=== PATIENT | male | born 1965 | race Caucasian/White ===

== ENCOUNTER 2023-06-19 23:41 | Emergency (ER) | payer OTHER, SELFPAY ==
--- NOTE | 2023-06-19 23:51 | ED.GENADUL1 ---
HPI - General Adult General Chief complaint: Urogenital-Male Stated complaint: KIDNEY STONE Time Seen by Provider: 06/19/23 23:51 History of Present Illness HPI narrative: Patient presents to emergency department complaining of left flank pain. Patient states pain started intermittently yesterday morning. Pain radiates down to his left groin and testicle. Patient states he had a kidney stone in the past 7 years ago and this feels exactly like when he had a kidney stone. Complains of nausea denies any vomiting, Diarrhea, or constipation.. Denies any fever, chills, or cough. He denies any chest, shortness of breath. He denies any Dysuria. He states he's had some Urinary frequency. He denies any trauma. Denies any gross hematuria. Related Data Home Medications Medication Instructions Recorded Confirmed irbesartan 150 mg tablet mg 06/20/23 Previous Rx's Medication Instructions Recorded hydrocodone 5 mg-acetaminophen 325 1 tab PO Q6H PRN pain 5 days #20 06/20/23 mg tablet tabs ondansetron 4 mg disintegrating 4 mg PO Q8H PRN nausea and 06/20/23 tablet vomiting 5 days #10 tabs tamsulosin 0.4 mg capsule (Flomax) 0.4 mg PO DAILY #7 caps 06/20/23 Allergies Allergy/AdvReac Type Severity Reaction Status Date / Time No Known Drug Allergies Allergy Verified 06/20/23 00:00 Review of Systems ROS Status of ROS 10 or more systems reviewed and unremarkable except as noted in history and below PFSH PFSH Social History Smoking status: Current every day smoker Exam Narrative Exam Narrative: Nurses notes and vital signs reviewed and patient is not hypoxic. General: Nontoxic, Appears in pain, but is not in apparent distress. Skin: Warm, dry, no pallor noted. No Rash Head: Normocephalic, atraumatic. Neck: Supple, non-tender. Eye: Pupils are equal, round and EOMI. No scleral icterus. Ears, Nose, Mouth, and Throat: TM clear, no posterior oropharynx erythema or nasal mucosal hypertrophy, uvula is mid-line Oral mucosa is moist Cardiovascular: Regular Rate and Rhythm without murmur, gallop or rub. Respiratory: No accessory muscle use or respiratory distress. Lungs are clear to auscultation, no wheezing, rales or rhonchi Chest Wall: no tenderness Back: No midline thoracic or lumbar vertebral tenderness. No CVA tenderness Musculoskeletal: normal ROM, no calf or popliteal tenderness, no lower extremity edema/swelling GI: Abdomen is soft, non-distended. Normal bowel sounds. No masses appreciated. No tenderness to palpation. No rebound, guarding, or rigidity noted. Neurological: A&O x4. No cranial nerve dysfunction observed. No truncal ataxia. Moves all extremities. Sensation intact. Psychiatric: Cooperative and interactive. Normal mood and affect. Constitutional Vital Signs, click to edit/add: Last Vital Signs Temp 97.7 F 06/19/23 23:52 Pulse 72 06/20/23 03:35 Resp 16 06/20/23 03:35 BP 160/90 H 06/20/23 03:35 Pulse Ox 95 06/20/23 03:35 O2 Del Method Room Air 06/19/23 23:52 Course Vital Signs Vital signs: Vital Signs Temperature 97.7 F 06/19/23 23:52 Pulse Rate 74 06/19/23 23:52 Respiratory Rate 20 06/19/23 23:52 Blood Pressure 262/138 H 06/19/23 23:52 Pulse Oximetry 98 06/19/23 23:52 Oxygen Delivery Method Room Air 06/19/23 23:52 Temperature 97.7 F 06/19/23 23:52 Pulse Rate 72 06/20/23 03:35 Respiratory Rate 16 06/20/23 03:35 Blood Pressure 160/90 H 06/20/23 03:35 Pulse Oximetry 95 06/20/23 03:35 Oxygen Delivery Method Room Air 06/19/23 23:52 Medical Decision Making [facility] Narrative Medical decision making narrative: Patient was given a liter of normal saline, Zofran, Toradol, morphine, Dilaudid for pain. Lab studies results and CT scan results were discussed with the patient. The patient was given Flomax. He was given a strainer. He'll be given a prescription for Flomax, [place], and Zofran.pts pain is well controlled, he Is tolerating po. pt states he saw his primary care doctor in April was found to have hypertension and was started on blood pressure medication which she has been taking daily.Patient was given Vasotec and hydralazine to address his hypertension. His pressure improved to 160/90. At this time the patient is without objective evidence of an acute process requiring hospitalization or inpatient management. The patient has remained hemodynamically stable. No additional indication for emergent studies at this time. I answered all questions. Discussed discharge instructions including standard anticipatory guidance and what should prompt a return to the emergency department, including if they get worse are not getting better or develops any new or concerning symptoms. I've given them specific time frame in which to follow-up, and who to follow-up with. The patient demonstrates understanding. Patient is nontoxic and stable for discharge with outpatient follow-up. This note was created with the assistance of a speech recognition program. Although the intention is to generate documents that actually reflects the content of the visit, no guarantees can be provided that every mistake has been identified and corrected by editing. Lab Data Lab results reviewed: Yes I reviewed the patient's lab results Labs: Lab Results 06/19/23 06/20/23 Range/Units 00:05 00:40 WBC 11.1 H (4.0-11.0) 10^3/uL RBC 5.35 (4.70-6.10) 10^6/uL Hgb 16.1 (14.0-18.0) g/dL Hct 45.7 (42.0-54.0) % MCV 85.4 (80.0-94.0) fL MCH 30.1 (25.9-34.0) pg MCHC 35.2 (29.9-35.2) g/dL RDW 12.5 (11.0-15.0) % Plt Count 302 (150-450) 10^3/uL MPV 9.6 (9.5-13.5) fL Neut % (Auto) 58.3 (43.0-75.0) % Lymph % (Auto) 32.9 (20.5-60.0) % Stewart % (Auto) 6.8 (1.7-12.0) % Eos % (Auto) 1.2 (0.9-7.0) % Baso % (Auto) 0.5 (0.2-2.0) % Neut # (Auto) 6.5 (1.4-6.5) 10^3/uL Lymph # (Auto) 3.7 (1.2-3.8) 10^3/uL Stewart # (Auto) 0.8 (0.3-0.8) 10^3/uL Eos # (Auto) 0.1 (0.0-0.7) 10^3/uL Baso # (Auto) 0.1 (0.0-0.1) 10^3/uL Abs Immat Gran (auto) 0.03 (0.00-0.03) 10^3/uL Imm/Tot Granulo (auto) 0.3 (0.0-0.5) % Sodium 142 (136-145) mmol/L Potassium 3.7 (3.5-5.1) mmol/L Chloride 106 (98-107) mmol/L Carbon Dioxide 24.3 (21.0-32.0) mmol/L Anion Gap 15.4 BUN 12.0 (7.0-18.0) mg/dL Creatinine 1.17 (0.70-1.30) mg/dL Est GFR ( Amer) >60 (>=60) Est GFR (Non-Af Amer) >60 (>=60) BUN/Creatinine Ratio 10.3 Glucose 138 H (74-106) mg/dL Calcium 8.4 L (8.5-10.1) mg/dL Total Bilirubin 0.6 (0.2-1.0) mg/dL AST 22 (15-37) U/L ALT 34 (16-63) U/L Alkaline Phosphatase 52 (46-116) U/L Total Protein 7.7 (6.4-8.2) g/dL Albumin 4.0 (3.4-5.0) g/dL Globulin 3.7 g/dL Albumin/Globulin Ratio 1.1 Urine Color Yellow (YELLOW) Urine Clarity Clear (CLEAR) Urine pH 6.0 (5.0-9.0) Ur Specific [place] >=1.030 A (1.005-1.025) Urine Protein 100 A (NEG/TRACE) mg/dL Urine Glucose (UA) Negative (NEGATIVE) mg/dL Urine Ketones Negative (NEGATIVE) mg/dL Urine Occult Blood Large A (NEGATIVE) Urine Nitrite Negative (NEGATIVE) Urine Bilirubin Negative (NEGATIVE) Urine Urobilinogen 0.2 (0.2-1.0) EU/dL Ur Leukocyte Esterase Negative (NEGATIVE) Urine RBC 10-20 A (0-2) #/HPF Urine WBC 0-2 A (NONE SEEN) #/HPF Ur Squamous Epith Cells Rare (NONE/RARE) #/LPF Urine Crystals None seen (None Seen) #/HPF Urine Bacteria None seen (NONE SEEN) #/HPF Urine Casts Seen A (NONE SEEN) #/LPF Hyaline Casts Rare Urine Mucus Small A (NONE SEEN) Ur Culture Indicated? No Discharge Plan Discharge Chief Complaint: Urogenital-Male Clinical Impression: Ureterolithiasis, Hypertension Patient Disposition: Home, Self-Care Time of Disposition Decision: 02:59 Condition: Good Mode of Transportation: Private Vehicle Prescriptions / Home Meds: New ondansetron 4 mg tablet,disintegrating 4 mg PO Q8H PRN (Reason: nausea and vomiting) 5 Days Qty: 10 0RF tamsulosin [Flomax] 0.4 mg capsule 0.4 mg PO DAILY Qty: 7 0RF hydrocodone-acetaminophen 5-325 mg tablet 1 tab PO Q6H PRN (Reason: pain) 5 Days Qty: 20 0RF Rx Instructions: N.20 No Action irbesartan 150 mg tablet Instructions: Kidney Stones (ED), Chronic Hypertension (ED), Hypertension (ED), Ureteral Stones (ED) Stand Alone Forms: Portal Instructions Referrals: Robert Domingo MD [Primary Care Provider] - 1 week Barbara Adames MD [Physician] - 1 week
[2023-06-19 23:52] VITALS: BP 262/138; PULSE 74; RESP 20; TEMP 36.5; O2SAT 98; BMI 31.4
--- NOTE | 2023-06-19 23:53 | CT_ITS ---
The [address] [address] Patient Name: MICHAEL CRUZ MRN: [id number] date: 1965 Sex: M Assigned Patient Location: ER Current Patient Location: Accession/Order Number: [id number] Exam Date: 06/19/2023 23:59 Report Date: 06/20/2023 02:20 At the request of: ABDON PIZANO Procedure: CT abdomen pelvis wo con EXAM: CT abdomen pelvis wo con HISTORY: flank pain COMPARISON: None. TECHNIQUE: Noncontrast axial CT images through the abdomen and pelvis were obtained with coronal and sagittal reformats. Dose reduction techniques were achieved by using automated exposure control and/or adjustment of mA and/or kV according to patient size and/or use of iterative reconstruction technique. FINDINGS: There is a 0.3 cm nodule in the right lower lobe (series 3, image 10). There is a 0.7 cm nodule in the right lower lobe (series 3, image 21). There is mild cardiomegaly. Abdomen: Please note that the sensitivity for detection of focal lesions or vascular disease is markedly reduced without intravenous contrast. Splenic calcifications are suggestive of prior granulomatous disease. There is mild hepatic steatosis. Otherwise, the liver and spleen are unremarkable. There is no intra or extrahepatic biliary duct dilatation. There is cholelithiasis without evidence of acute inflammation. There are bilateral adrenal adenomas. There is a 1 mm nonobstructive left renal calculus. There is a 0.4 cm calculus in the distal left ureter with mild upstream hydroureter and hydronephrosis. The pancreas, right kidney, and bowel loops, including the appendix, are unremarkable. There is no mesenteric or retroperitoneal lymphadenopathy. There is a small fat-containing umbilical hernia. Pelvis: The bladder and rectum are unremarkable. There is no iliac or inguinal lymphadenopathy. There is mild to moderate atherosclerotic disease. Bone windows show no aggressive osseous lesions. CT/CT abdomen pelvis wo con IMPRESSION: 1. There is a 0.4 cm calculus in the distal left ureter with mild upstream hydroureter and hydronephrosis. 2. Nonobstructive left renal calculus. 3. There are a couple nodules in the right lower lobe measuring up to 0.7 cm. Consider a dedicated nonemergent CT of the chest for further evaluation. 4. Mild cardiomegaly. 5. Hepatic steatosis. 6. Cholelithiasis without evidence of acute inflammation. 7. Bilateral adrenal adenomas. 8. Normal appendix. Electronically authenticated by: Dionne CALZADA Date: 06/20/2023 02:20
[2023-06-20 00:27] LABS: Basophils Absolute Auto 0.1 10^3/uL (0.0-0.1); Basophils Percent Auto 0.5 % (0.2-2.0); Eosinophils Absolute Auto 0.1 10^3/uL (0.0-0.7); Eosinophils Percent Auto 1.2 % (0.9-7.0); Hematocrit 45.7 % (42.0-54.0); Hemoglobin 16.1 g/dL (14.0-18.0); Immature Granulocytes Abs Auto 0.03 10^3/uL (0.00-0.03); Immature Granulocytes Pct Auto 0.3 % (0.0-0.5); Lymphocytes Absolute Auto 3.7 10^3/uL (1.2-3.8); Lymphocytes Percent Auto 32.9 % (20.5-60.0); Mean Corpuscular HGB Conc 35.2 g/dL (29.9-35.2); Mean Corpuscular Hemoglobin 30.1 pg (25.9-34.0); Mean Corpuscular Volume 85.4 fL (80.0-94.0); Mean Platelet Volume 9.6 fL (9.5-13.5); Monocytes Absolute Auto 0.8 10^3/uL (0.3-0.8); Monocytes Percent Auto 6.8 % (1.7-12.0); Neutrophils Absolute Auto 6.5 10^3/uL (1.4-6.5); Neutrophils Percent Auto 58.3 % (43.0-75.0); Platelet Count 302 10^3/uL (150-450); Red Blood Count 5.35 10^6/uL (4.70-6.10); Red Cell Distribution Width 12.5 % (11.0-15.0); White Blood Count 11.1 10^3/uL (4.0-11.0)
[2023-06-20] MEDS: KETOROLAC TROMETHAMINE 30 MG/ML VIAL IVP (00:35)
[2023-06-20] MEDS: MORPHINE SULFATE 4 MG/ML VIAL IV (00:36)
[2023-06-20] MEDS: 0.9 % SODIUM CHLORIDE 1,000 ML 1000 ML IV (00:36)
[2023-06-20] MEDS: 0.9 % SODIUM CHLORIDE 1,000 ML 999 ML IV (00:36)
[2023-06-20 00:51] LABS: Alanine Aminotransferase 34 U/L (16-63); Albumin Globulin Ratio 1.1; Alkaline Phosphatase 52 U/L (46-116); Anion Gap 15.4; Aspartate Amino Transferase 22 U/L (15-37); BUN Creatinine Ratio 10.3; Bilirubin Total 0.6 mg/dL (0.2-1.0); Calcium 8.4 mg/dL (8.5-10.1); Carbon Dioxide 24.3 mmol/L (21.0-32.0); Chloride 106 mmol/L (98-107); Estimated GFR (African America >60 (>=60); Estimated GFR (Non-African Ame >60 (>=60); Globulin 3.7 g/dL; Glucose 138 mg/dL (74-106); Potassium 3.7 mmol/L (3.5-5.1); Sodium 142 mmol/L (136-145); Total Protein 7.7 g/dL (6.4-8.2)
--- NOTE | 2023-06-20 01:06 | PC.NURSE ---
left flank pain began yesterday, intermitten. patient has hx of kidney stones.
[2023-06-20 01:44] LABS: Bilirubin Urine NEGATIVE (NEGATIVE); Blood Urine LARGE (NEGATIVE); Clarity Urine CLEAR (CLEAR); Color Urine YELLOW (YELLOW); Glucose Urine UA NEGATIVE (NEGATIVE); Ketones Urine NEGATIVE (NEGATIVE); Leukocyte Esterase Urine NEGATIVE (NEGATIVE); Nitrite Urine NEGATIVE (NEGATIVE); Protein Urine 100 mg/dL (NEG/TRACE); Specific Gravity Urine >=1.030 (1.005-1.025); Urobilinogen Urine 0.2 EU/dL (0.2-1.0)
[2023-06-20 01:45] LABS: Urine Microscopic Indicated YES
[2023-06-20 01:51] LABS: Bacteria Urine NONE SEEN #/HPF (NONE SEEN); Cast Seen? SEEN #/LPF (NONE SEEN); Crystals Seen? None Seen #/HPF (None Seen); Hyaline Casts Urine RARE; Mucus Urine SMALL (NONE SEEN); Squamous Epithelial Cell Urine RARE #/LPF (NONE/RARE); Urine Culture Indicated NO; WBC Urine 0-2 #/HPF (NONE SEEN)
[2023-06-20 02:17] VITALS: BP 226/118
[2023-06-20] MEDS: ENALAPRILAT DIHYDRATE 1.25 MG/ML VIAL 2.5 MG IV (02:17)
[2023-06-20] MEDS: TAMSULOSIN HCL 0.4 MG CAPSULE PO (02:19)
[2023-06-20 02:59] VITALS: BP 220/120
[2023-06-20] MEDS: HYDRALAZINE HCL 20 MG/ML VIAL 10 MG IVP (02:59)
[2023-06-20] MEDS: HYDROMORPHONE HCL 1 MG/ML CARTRIDGE IVP (03:00)
[2023-06-20 03:16] VITALS: BP 200/112
[2023-06-20 03:35] VITALS: BP 160/90; PULSE 72; RESP 16; O2SAT 95
[2023-06-20] MEDS: ONDANSETRON PF 4 MG/2 ML VIAL IV (04:00)
[2023-06-20 04:12] LABS: Glucometer 162 mg/dL (74-106)
[2023-06-20 04:15] VITALS: BP 180/100; PULSE 75; RESP 20; O2SAT 97
[2023-06-20] MEDS: ONDANSETRON 4 MG RAPDIS TABLET SL (04:20)
== END 2023-06-20 04:26 | disposition home or self-care (01) ==
PROVIDERS: Emergency Provider Emergency Medicine; PCP Family Medicine
DX: N20.1 Calculus of ureter (principal); I10 Essential (primary) hypertension; Z87.442 Personal history of urinary calculi; F17.210 Nicotine dependence, cigarettes, uncomplicated
CPT/HCPCS: 36415; 74176; 80053; 81001; 85025; 96374; 96375; 99284; J1170

== ENCOUNTER 2023-06-20 10:45 | Emergency (ER) | payer OTHER, SELFPAY ==
[2023-06-20 10:52] VITALS: BP 172/80; PULSE 67; RESP 18; TEMP 36.4; O2SAT 97; BMI 31.4
--- NOTE | 2023-06-20 11:18 | ED.GENADUL1 ---
HPI - General Adult General Chief complaint: Abdominal Pain Stated complaint: VOMITING Time Seen by Provider: 06/20/23 10:55 Source: patient and family Mode of arrival: Wheelchair Limitations: no limitations History of Present Illness HPI narrative: patient was evaluated in the ED last night and found to have a 4mm left distal ureteral stone. He was discharged home with prescriptions for zofran, flomax and norco, which he filled and took this morning. He said that the pain intensified and he felt it move from the left flank down into the left lower abdomen and left groin. He came back to the ED because of the pain. When I saw him the pain was still present but had substantially decreased. He had nausea and vomited earlier despite taking the zofran but now feels better. No fever or chills. he has a urine strainer. Related Data Home Medications Medication Instructions Recorded Confirmed irbesartan 150 mg tablet mg 06/20/23 Previous Rx's Medication Instructions Recorded hydrocodone 5 mg-acetaminophen 325 1 tab PO Q6H PRN pain 5 days #20 06/20/23 mg tablet tabs ondansetron 4 mg disintegrating 4 mg PO Q8H PRN nausea and 06/20/23 tablet vomiting 5 days #10 tabs tamsulosin 0.4 mg capsule (Flomax) 0.4 mg PO DAILY #7 caps 06/20/23 Allergies Allergy/AdvReac Type Severity Reaction Status Date / Time No Known Drug Allergies Allergy Verified 06/20/23 10:57 [facility] Social History Smoking status: Current every day smoker Exam Narrative Exam Narrative: Nurses notes and vital signs reviewed and patient is not hypoxic. afebrile General: Well-appearing and in no apparent distress. Skin: Warm, dry, no pallor noted. No rash. Head: Normocephalic, atraumatic. Eye: Pupils are equal, round and EOMI. No scleral icterus. Cardiovascular: Regular Rate and Rhythm without murmur, gallop or rub. Respiratory: No accessory muscle use or respiratory distress. Lungs are clear to auscultation, no wheezing, rales or rhonchi Back: No CVA tenderness Musculoskeletal: normal ROM GI: Abdomen is soft, non-distended. Normal bowel sounds. No masses appreciated. No tenderness to palpation. No rebound, guarding, or rigidity noted. Neurological: A&O x4. No cranial nerve dysfunction observed. No truncal ataxia. Moves all extremities. Sensation intact. Psychiatric: Cooperative and interactive. Normal mood and affect. Constitutional Vital Signs, click to edit/add: Last Vital Signs Temp 97.6 F 06/20/23 10:52 Pulse 67 06/20/23 10:52 Resp 18 06/20/23 10:52 BP 140/70 06/20/23 11:43 Pulse Ox 97 06/20/23 10:52 O2 Del Method Room Air 06/20/23 10:52 Course Vital Signs Vital signs: Vital Signs Temperature 97.6 F 06/20/23 10:52 Pulse Rate 67 06/20/23 10:52 Respiratory Rate 18 06/20/23 10:52 Blood Pressure 172/80 H 06/20/23 10:52 Pulse Oximetry 97 06/20/23 10:52 Oxygen Delivery Method Room Air 06/20/23 10:52 Temperature 97.6 F 06/20/23 10:52 Pulse Rate 67 06/20/23 10:52 Respiratory Rate 18 06/20/23 10:52 Blood Pressure 140/70 06/20/23 11:43 Pulse Oximetry 97 06/20/23 10:52 Oxygen Delivery Method Room Air 06/20/23 10:52 Medical Decision Making MDM Narrative Medical decision making narrative: peripheral IV established and the patient was ordered to receive IV Toradol. He was also given IV Vasotec for his elevated blood pressure - he has HTN and takes meds daily. He felt better after ED treatment - pain decreased to 1/10. He was discharged home. Discharge Plan Discharge Chief Complaint: Abdominal Pain Clinical Impression: Ureterolithiasis Time of Disposition Decision: 12:08 Prescriptions / Home Meds: No Action irbesartan 150 mg tablet ondansetron 4 mg tablet,disintegrating 4 mg PO Q8H PRN (Reason: nausea and vomiting) 5 Days Qty: 10 0RF tamsulosin [Flomax] 0.4 mg capsule 0.4 mg PO DAILY Qty: 7 0RF hydrocodone-acetaminophen 5-325 mg tablet 1 tab PO Q6H PRN (Reason: pain) 5 Days Qty: 20 0RF Rx Instructions: N.20 Instructions: How to Strain Your Urine (ED), Ureteral Stones (ED) Stand Alone Forms: Portal Instructions Referrals: Barbara Adames MD [Physician] - As needed
[2023-06-20] MEDS: KETOROLAC TROMETHAMINE 30 MG/ML VIAL IVP (11:23)
[2023-06-20 11:40] VITALS: BP 140/70
[2023-06-20 11:43] VITALS: BP 140/70
== END 2023-06-20 12:24 | disposition home or self-care (01) ==
PROVIDERS: Emergency Provider Emergency Medicine; PCP Family Medicine
DX: N20.1 Calculus of ureter (principal); F17.210 Nicotine dependence, cigarettes, uncomplicated
CPT/HCPCS: 96374; 99284

== ENCOUNTER 2023-07-04 07:52 | Outpatient (OUT) | payer OTHER, SELFPAY ==
--- NOTE | 2023-07-04 | CT_ITS ---
The [address] [address] Patient Name: MICHAEL CRUZ MRN: [id number] date: 1965 Sex: M Assigned Patient Location: CT Current Patient Location: CT Accession/Order Number: [id number] Exam Date: 07/04/2023 08:05 Report Date: 07/04/2023 09:50 At the request of: JM HERNANDEZ Procedure: CT chest w con EXAMINATION: CT chest w con HISTORY: CHEST PAIN COMPARISON: 06/20/2023 abdomen TECHNIQUE: Multi-planar CT images were created with IV contrast. Axial, Coronal, and Sagittal images. Dose reduction techniques were achieved by using automated exposure control and/or adjustment of mA and/or kV according to patient size and/or use of iterative reconstruction technique. FINDINGS: LUNGS: Scattered solid subcentimeter pulmonary nodules the largest measuring 7.8 mm in the right lower lobe, axial image #88. PLEURA: No mass, effusion, or pneumothorax. VASCULATURE: No abnormality. BALDOMERO: No mass or adenopathy. MEDIASTINUM: No mass or adenopathy. CARDIAC: No enlargement, pericardial thickening, or significant calcification. AORTA: No aneurysm or dissection. CHEST WALL: No mass or axillary adenopathy. BONES: No bone lesion or fracture. LIMITED ABDOMEN: Bilateral hypodense adrenal nodules likely adenomas. Hypodense liver suggesting hepatic steatosis OTHER: Negative. CT/CT chest w con IMPRESSION: Scattered subcentimeter pulmonary nodules measuring up to 7.8 mm in the right lower lobe. The largest lesion is at the limits of detectability for PET scan, therefore I recommend a 3 month follow-up contrast CT exam to evaluate stability Electronically authenticated by: MICHAEL ELLISON Date: 07/04/2023 09:50
== END 2023-07-04 07:53 | disposition home or self-care (01) ==
LOC: CT 07:52
PROVIDERS: PCP Family Medicine; Visit Provider Family Medicine
DX: R91.1 Solitary pulmonary nodule (principal)
CPT/HCPCS: 71260; Q9967

== ENCOUNTER 2023-07-17 14:01 | Outpatient (OUT) | payer OTHER, SELFPAY ==
--- NOTE | 2023-07-17 14:10 | PE_ITS ---
The [address] [address] Patient Name: MICHAEL CRUZ MRN: [id number] date: 1965 Sex: M Assigned Patient Location: PETCT Current Patient Location: PETCT Accession/Order Number: [id number] Exam Date: 07/17/2023 15:07 Report Date: 07/19/2023 15:57 At the request of: JM HERNANDEZ Procedure: PET skull to mid thigh PET/CT: HISTORY: Solitary pulmonary nodule. COMPARISON: CT chest 07/04/2023, CT abdomen and pelvis 06/20/2023. TECHNIQUE: The patient was injected with 12.06 mCi of F-18 fluorodeoxyglucose (FDG), and an emission scan was performed from the base of the skull to the mid thigh. Noncontrast CT was performed for attenuation correction and anatomic localization. The blood glucose level was 98 mg/dl. The uptake time was 50 minutes. The SUVmax of the mediastinum is 2.8. FINDINGS: HEAD AND NECK: There is a physiologic distribution of activity, with no hypermetabolic foci. CHEST: An 8 mm right lower lobe pulmonary nodule noted previously shows no FDG uptake and is near resolution limits of PET. The other smaller pulmonary nodules are below resolution limits of PET. There is no hypermetabolic mediastinal or hilar lymphadenopathy. ABDOMEN AND PELVIS: There is a physiologic distribution of activity within the liver, spleen, adrenal glands, urinary tract and bowel, with no hypermetabolic foci. MUSCULOSKELETAL SYSTEM: There is a physiologic distribution of activity within the bone marrow, with no hypermetabolic foci. ADDITIONAL CT FINDINGS: There is mild atherosclerotic calcification of the aortic arch, abdominal aorta, iliac and femoral arteries. There is mild fatty liver. There are 2 gallstones in the neck of the gallbladder measuring up to 14 mm. There are stable bilateral adrenal adenomas. A previously noted stone in the left distal ureter appears to pass and there is no significant hydronephrosis. There is a moderate hiatal hernia. There is a small fat-containing umbilical hernia. PET/PET skull to mid thigh IMPRESSION: 1. The previously noted 8 mm right lower lobe pulmonary nodule is non-FDG avid but near resolution limits of PET. Recommend follow-up chest CT in 3 months. 2. Other smaller nodules noted previously are below resolution limits of PET and attention on follow-up is recommended. 3. Additional CT findings as described above. Electronically authenticated by: MARCELA AMADOR Date: 07/19/2023 15:57
== END 2023-07-17 14:02 | disposition home or self-care (01) ==
LOC: PETCT 14:01
PROVIDERS: PCP Family Medicine; Visit Provider Family Medicine
DX: C34.90 Malignant neoplasm of unspecified part of unspecified bronchus or lung (principal)
CPT/HCPCS: 78815; A9552

== ENCOUNTER 2024-08-27 06:32 | Outpatient (OUT) | payer OTHER, SELFPAY ==
[2024-08-27 07:09] LABS: Basophils Absolute Auto 0.1 10^3/uL (0.0-0.1); Basophils Percent Auto 0.8 % (0.2-2.0); Eosinophils Absolute Auto 0.2 10^3/uL (0.0-0.7); Eosinophils Percent Auto 1.9 % (0.9-7.0); Hematocrit 47.7 % (42.0-54.0); Hemoglobin 16.8 g/dL (14.0-18.0); Immature Granulocytes Abs Auto 0.03 10^3/uL (0.00-0.03); Immature Granulocytes Pct Auto 0.3 % (0.0-0.5); Lymphocytes Absolute Auto 3.1 10^3/uL (1.2-3.8); Lymphocytes Percent Auto 31.3 % (20.5-60.0); Mean Corpuscular HGB Conc 35.2 g/dL (29.9-35.2); Mean Platelet Volume 9.8 fL (9.5-13.5); Monocytes Absolute Auto 0.6 10^3/uL (0.3-0.8); Monocytes Percent Auto 6.6 % (1.7-12.0); Neutrophils Absolute Auto 5.8 10^3/uL (1.4-6.5); Neutrophils Percent Auto 59.1 % (43.0-75.0); Platelet Count 310 10^3/uL (150-450); Red Blood Count 5.42 10^6/uL (4.70-6.10); Red Cell Distribution Width 11.9 % (11.0-15.0); White Blood Count 9.8 10^3/uL (4.0-11.0)
[2024-08-27 08:50] LABS: Estimated Average Glucose 117 mg/dL; Glycohemoglobin A1C 5.7 % (4.5-6.2)
[2024-08-27 09:17] LABS: Alanine Aminotransferase 34 U/L (16-63); Albumin Globulin Ratio 0.9; Albumin Level 3.5 g/dL (3.4-5.0); Alkaline Phosphatase 63 U/L (46-116); Anion Gap 11.6; Aspartate Amino Transferase 23 U/L (15-37); BUN Creatinine Ratio 15.6; Bilirubin Total 1.2 mg/dL (0.2-1.0); Calcium 8.9 mg/dL (8.5-10.1); Carbon Dioxide 28.5 mmol/L (21.0-32.0); Chloride 107 mmol/L (98-107); Chol HDL Ratio 3.5; Cholesterol 132 mg/dL (<=200); Estimated GFR (African America >60 (>=60 mL/min/1.73m^2); Estimated GFR (Non-African Ame >60 (>=60 mL/min/1.73m^2); Free T3 3.34 pg/mL (2.18-3.98); Globulin 3.9 g/dL; Glucose 112 mg/dL (74-106); HDL Cholesterol 38 mg/dL (40-60); Potassium 4.1 mmol/L (3.5-5.1); Sodium 143 mmol/L (136-145); Thyroid Stimulating Hormone 0.833 uIU/mL (0.358-3.740); Total Protein 7.4 g/dL (6.4-8.2); Triglycerides 132 mg/dL (<=150); VLDL CHOLESTEROL 26.4 mg/dL
[2024-08-27 09:21] LABS: Prostate Specific Antigen Scrn 1.03 ng/mL (<=4.00)
[2024-08-29 15:10] LABS: Insulin 30.7 uIU/mL (2.6-24.9)
== END 2024-08-27 06:33 | disposition home or self-care (01) ==
PROVIDERS: PCP Family Medicine; Visit Provider Family Medicine
DX: Z00.00 Encounter for general adult medical examination without abnormal findings (principal)
CPT/HCPCS: 36415; 80053; 80061; 83036; 83525; 84436; 84443; 84481; 84550; 85025; G0103

== ENCOUNTER 2024-09-21 06:09 | Outpatient (OUT) | payer OTHER, SELFPAY ==
--- OUTSIDE RECORDS SUMMARY | 2024-09-21 06:11 | XMS_ITS | CCD ---
Author Organization [facility] Informat ion Partnership [facility] Care Team Providers Care Plumbers And Top Helpers Name Role Phone ItzCharlieen Admitting Unavailable Jose Mobley Attending Unavailable March, Mehdi Primary Care Unavailable Results Test Name Value Interpretation Reference Range Facil ity Coding Summary.on 03-13-2019 Coding Summary. CODING DATE: 03/13/2019 FINAL [facility] STATUS: Home (Routine DC) PAYOR: Medical [place] ADMIT DX: REASON FOR VISIT DX: M65.4 Radial styloid tenosynovitis [de Quervain] FINAL DX: PRINCIPAL: M65.4 Radial styloid tenosynovitis [de Quervain] SECONDARY: PROCEDURES DOCTOR NAME DATE NOTE: The code number assigned matches the documented diagnosis and / or procedure in the patient's chart. However, the narrative phrase printed from the coding software may appear abbreviated, or result in slightly different terminology. Coded By: Hannah Lombardi CphT Date Saved: 03/13/2019 08:43 am Normal [facility] Uric Acidon 03-07-2019 Urate mass conc 8.5 mg/dL High 2.2-7.4 [facility] Comment on above: Performed By: #### [id number] #### [facility] [address] [place] [address] Encounters Encounter Date Encounter Type Care Provider Facility Start: 03-07-2019 End: 03-08-2019 Patient encounter procedure Jose Mobley Facility:[facility] Payers Date Payer Category Payer Unknown [id number] 1965 Unknown [id number] Summary Purpose Family History No Family History Records Found Advance Directives No Advanced Directives Records Found Additional Source Comments (unrecognized sect ion and content) No Status Records Found INFORMATION SOURCE (unrecogn ized section and content) DATE CREATED AUTHOR 03/21/2019 [facility] FOR RECORDS PERTAINING TO PATIENTS WHO ARE OR HAVE BEEN ENROLLED IN A CHEMICAL DEPENDENCY/SUBSTANCEABUSE PROGRAM, SOME INFORMATION MAY BE OMITTED. This clinical summary was aggregated from multiple sources. Caution should be exercised in using it in the provision of clinical care. This summary normalizes information from multiple sources, and as a consequence, information in this document may materially change the coding, format and clinical context of patient data. In addition, data may be omitted in some cases. CLINICAL DECISIONS SHOULD BE BASED ON THE PRIMARY CLINICAL RECORDS. [facility]. provides no warranty or guarantee of the accuracy or completeness of information in this document.
--- NOTE | 2024-09-21 06:20 | NM_ITS ---
Patient Name: RAPHAEL CRUZ MR#: [id number] : 1965 Exam Date: 09/21/2024 Ordering Doctor: DR Robert Domingo . RADIOLOGY REPORT PROCEDURE: NM GILDARDO PERF SPECT REST STR COMPARISON: None. INDICATIONS: CHEST PAIN, SHORTNESS OF BREATH TECHNIQUE: Exam Description: Rest/Stress one day protocol gated SPECT Rest Imagin.9 mCi Tc-99m Cardiolite IV on 09/21/2024 Stress Imaging 29.9 mCi Tc-99m Cardiolite IV on 09/21/2024 Exercise Protocol: 0.4 mg Lexiscan given IV Heart Rate (bpm): Rest: 56 Max: 88 PMHR: 55 Blood Pressure: Rest: 188/94 Max: 196/98 Symptoms: Rest and peak stress ECG findings were abnormal and the exercise portion of the study was Non-diagnostic per attending physician Dr. Smith due to EKG changes, inverted T waves. For more details please see separate cardiac stress test report. FINDINGS: QUALITY OF STUDY: Good. PERFUSION DEFECT: LOCATION: Basal inferior. Mid-inferior. Apical inferior. [place]. SIZE: Medium (3-4 segments). SEVERITY: Moderate. TYPE: Persistent. WALL MOTION: Mild hypokinesis: LV SIZE: Enlarged; EDV 145 mL. TID / TCD: None; 1.0 LVEF: Abnormal. Calculated EF 48%. SUMMARY: Myocardial perfusion imaging study has ABNORMAL findings. CONCLUSION: 1. 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 2. No redistribution on rest images to suggest an area of reversible ischemia 3. Dilated left ventricle, end-diastolic volume 145 milliliters 4. Low left ventricular ejection fraction of 48% Dictated by: Raphael Sevilla MD on 09/21/2024 at 14:27 Approved by: Raphael Sevilla MD on 09/21/2024 at 14:56
[2024-09-21] MEDS: REGADENOSON 0.4 MG/5 ML SYRINGE IV (08:44)
--- NOTE | 2024-09-21 09:08 | PM.STRESS ---
Stress Test Stress Test Allergies Allergy/AdvReac Type Severity Reaction Status Date / Time No Known Drug Allergies Allergy Verified 06/20/23 10:57 Requesting physician: Robert Domingo Procedure: Lexiscan Cardiolite stress test General Information: Reason for Stress Test: Chest pain Cardiac History and Risk Factors: HTN, smokes cigars Resting 12 - Lead Electrocardiogram: Rate & rhythm: Sinus bradycardia at a rate of 56. [place]: Normal T-waves: Biphasic in V3 & V4 ST-segments: Normal orientation Right bundle branch block present Stress Test: Protocol: Dat protocol was initiated, but due to elevated blood pressure, the exercise component canceled.? Testing was changed to Lexiscan protocol, with injection of 0.4mg Lexiscan IV push followed by Cardiolite. Blood pressure: Initial and maximum: 224/102 Rate & rhythm: Patient remained in sinus rhythm during the exercise and recovery portions of the study.? The maximum heart rate was 88, which was 55% of the maximum predicted heart rate. ST-segments & T-waves: After injection of Lexiscan, the inverted components of the biphasic T-waves in V3 & V4 became quite prominent, and V5 became biphasic as well. Abnormal findings resolved to baseline by the end of the study. Patient response/symptoms: No chest pain was reported. Interpretation: Non-diagnostic Lexiscan stress test based on abnormal T-wave findings in V3-V5. No reproducible chest pain. Cardiolite imaging interpretation will be reported separately. Clinical correlation required.?
--- NOTE | 2024-09-21 09:11 | PC.NURSE ---
Nursing Note Cardiac Stress Test Reviewed: Medication, allergies and patient history reviewed. Stress Test: [ x] Patient tolerated stress test well. [ x] Patient unable to tolerate walking on treadmill. Switched to Lexiscan stress test. [ x] No chest pain noted per patient [ ] Chest pain that resolved prior to leaving stress lab. [ ] No dyspnea noted. [x ] Dyspnea that resolved prior to leaving stress lab. [x ] Patient left stress lab asymptomatic and hemodynamically stable. [ ] Patient taken to the Emergency Room due to non-resolving symptoms following stress test. [ ] Patient achieved target heart rate. [ ] Patient unable to achieve target heart rate. [ ] Aminophylline administered as reversal agent to Lexiscan (Regadenoson). [ ] Nitro administered. Nursing Comments:Pt was scheduled for a Cardiolite TM test but due to high BP was switched to Lexiscan so that he could take BP meds prior to testing. Pt was given BP meds and allowed to wait and once BP was in safe levels for Lexiscan testing this was performed. Pt tolerated well. Pt did have some SOB and Headache after Uma was administered but this resolved within 3 minutes after uma given. Pt was given Mountain Dew to help clear symptoms after testing. Pt left stress lab to walk to cafeteria for breakfast. No issues noted.
--- NOTE | 2024-09-21 10:17 | CT_ITS ---
[address] [address] Patient Name: MICHAEL CRUZ MRN: [id number] date: 1965 Sex: M Assigned Patient Location: [place] Current Patient Location: Accession/Order Number: [id number] Exam Date: 09/21/2024 10:24 Report Date: 09/22/2024 04:56 At the request of: JM HERNANDEZ Procedure: CT chest wo con EXAMINATION: CT chest wo con HISTORY: Lung Mass follow-up COMPARISON: CT chest 07/04/2023 TECHNIQUE: Axial, Coronal, and Sagittal images were created without the administration of IV contrast material. Dose reduction techniques were achieved by using automated exposure control and/or adjustment of mA and/or kV according to patient size and/or use of iterative reconstruction technique. FINDINGS: LUNGS: Stable 8 mm irregular nodule within posterior lateral right costophrenic angle. Stable appearance of a few additional 3 mm nodules scattered within the lungs. No new nodules or acute infiltrates. PLEURA: No mass, effusion, or pneumothorax. VASCULATURE: No abnormality. BALDOMERO: A few calcified lymph nodes suggestive chronic granulomatous disease. MEDIASTINUM: No mass or pathologic adenopathy. CARDIAC: No enlargement, pericardial thickening, or pericardial effusion. Coronary Artery calcifications: Coronary calcifications are absent. AORTA: No aneurysm or dissection. CHEST WALL: No mass or axillary adenopathy BONES: No bone lesion or fracture. LIMITED ABDOMEN: No suspicious findings. Limited images of the upper abdomen. OTHER: Negative. CT/CT chest wo con IMPRESSION: 1. Lung-RADS 2- Benign Appearance or Behavior. Nodules with a very low likelihood of becoming a clinically active cancer due to size or lack of growth. Follow-up CT Chest in 1 year. Electronically authenticated by: MARCELA REDDY Date: 09/22/2024 04:56
== END 2024-09-21 06:10 | disposition home or self-care (01) ==
LOC: NM 06:10
PROVIDERS: PCP Family Medicine; Visit Provider Family Medicine
DX: R07.9 Chest pain, unspecified (principal); R91.8 Other nonspecific abnormal finding of lung field
CPT/HCPCS: 71250; 78452; 93017; A9500; J2785

== ENCOUNTER 2024-09-26 07:05 | Outpatient (OUT) | payer OTHER, SELFPAY ==
--- OUTSIDE RECORDS SUMMARY | 2024-09-26 07:10 | XMS_ITS | CCD ---
Author Organization [facility] Informat ion Partnership [facility] Care Team Providers Care Clearance Representative Name Role Phone Itz Jose Admitting Unavailable Jose Mobley Attending Unavailable March, Mehdi Primary Care Unavailable Results Test Name Value Interpretation Reference Range Facil ity Coding Summary.on 03-13-2019 Coding Summary. CODING DATE: 03/13/2019 FINAL [facility] STATUS: Home (Routine DC) PAYOR: Medical [place] ADMIT DX: REASON FOR VISIT DX: M65.4 [...] CphT Date Saved: 03/13/2019 08:43 am Normal [facility] Uric Acidon 03-07-2019 Urate mass conc 8.5 mg/dL High 2.2-7.4 [facility] Comment on above: Performed By: #### [id number] #### [facility] Laboratory [address] [place] [address] Encounters Encounter Date Encounter Type Care Provider Facility Start: 03-07-2019 End: 03-08-2019 Patient encounter procedure Jose Mobley Facility:[facility] C Payers Date Payer Category Payer Unknown [id number] 1965 Unknown [id number] Summary Purpose Family History No Family History Records Found Advance Directives No Advanced Directives Records Found Additional Source Comments (unrecognized sect ion and content) No Status Records Found INFORMATION SOURCE (unrecogn ized section and content) DATE CREATED AUTHOR 03/21/2019 [facility] FOR RECORDS PERTAINING TO PATIENTS WHO ARE [...] BE BASED ON THE PRIMARY CLINICAL RECORDS. [facility]. provides no warranty or guarantee of the accuracy or completeness of information in this document.
[2024-09-26 07:31] LABS: Basophils Percent Auto 0.6 % (0.2-2.0); Hematocrit 46.7 % (42.0-54.0); Hemoglobin 16.4 g/dL (14.0-18.0); Immature Granulocytes Pct Auto 0.3 % (0.0-0.5); Lymphocytes Absolute Auto 2.6 10^3/uL (1.2-3.8); Lymphocytes Percent Auto 28.3 % (20.5-60.0); Mean Corpuscular HGB Conc 35.1 g/dL (29.9-35.2); Mean Corpuscular Hemoglobin 31.1 pg (25.9-34.0); Mean Corpuscular Volume 88.4 fL (80.0-94.0); Mean Platelet Volume 9.5 fL (9.5-13.5); Monocytes Absolute Auto 0.8 10^3/uL (0.3-0.8); Neutrophils Absolute Auto 5.7 10^3/uL (1.4-6.5); Neutrophils Percent Auto 60.8 % (43.0-75.0); Platelet Count 279 10^3/uL (150-450); Red Blood Count 5.28 10^6/uL (4.70-6.10); Red Cell Distribution Width 12.1 % (11.0-15.0); White Blood Count 9.3 10^3/uL (4.0-11.0)
[2024-09-26 07:32] LABS: Anion Gap 15.1; BUN Creatinine Ratio 12.8; Basophils Absolute Auto 0.1 10^3/uL (0.0-0.1); Calcium 8.7 mg/dL (8.5-10.1); Carbon Dioxide 26.1 mmol/L (21.0-32.0); Chloride 107 mmol/L (98-107); Eosinophils Absolute Auto 0.2 10^3/uL (0.0-0.7); Estimated GFR (African America >60 (>=60 mL/min/1.73m^2); Estimated GFR (Non-African Ame >60 (>=60 mL/min/1.73m^2); Glucose 107 mg/dL (74-106); Immature Granulocytes Abs Auto 0.03 10^3/uL (0.00-0.03); Potassium 4.2 mmol/L (3.5-5.1); Sodium 144 mmol/L (136-145)
== END 2024-09-26 07:06 | disposition home or self-care (01) ==
LOC: LAB 07:08
PROVIDERS: PCP Family Medicine; Visit Provider Internal Medicine Cardiovascular Disease
DX: Z01.812 Encounter for preprocedural laboratory examination (principal)
CPT/HCPCS: 36415; 80048; 85025

== ENCOUNTER 2025-05-26 07:54 | Outpatient (OUT) | payer OTHER, SELFPAY ==
--- OUTSIDE RECORDS SUMMARY | 2018-09-20 08:13 | XMS_ITS | Continuity of Care Document ---
Author Organization [facility] Address [address] [place] [address] Phone Care Team Providers Care In Flight Crew Member Name Role Phone Umesh Juarez Unavailable Unavailable Advance Directives Directive Yes / No Effective Date File Name No Information Encounters Encounter Description Practice Location Reason(s) For Visit Diagnoses Date Provider Providers Copied on Encounter [facility], [address] [place] [address], [id number], [place] tel:[phone] [employer] No Information Liliana Kirby. [address], [place], [id number], [place]. tel:[phone] [facility], [address], [place], [id number], [place] tel:[phone] [employer] Encounter for screening for respiratory tuberculosis Liliana iKrby. [address] [place] [address], [id number], [place]. tel:[phone] Family History Family Member Type Diagnosis Age At Onset No Information Payers Payer name Insurance type Covered constitution party ID Authoriza tion(s) No Information Social History Type Description Quantity Date Captured Comments Sex Male Smoking Status No Information Chief Complaint And Reason For Visit No Information Reason For Referral Reason For Referral No Information History Of Present Illness Encounter Date Complaint History Of Prese nt Illness No Information Functional Status Date Functional Assessmen t No Information Instructions Date Instruction Additional Infor mation No Information Assessments Type Assessment Date No Information Patient Care Teams Name Effective Dates (start - stop) Status Members No Information
--- OUTSIDE RECORDS SUMMARY | 2024-08-28 17:44 | XMS_ITS ---
Author Organization [facility] in [place] Address [address] [place] [address] Care Team Providers Care Patch Washer Name Role Phone Florentin Domingo Primary Care Provider [phone] Starla Pritchard [phone] REASON FOR VISIT labs Medications Medication SIG (Take, Route, Fr equency, Duration) Notes Start Date End Date Status Meclizine HCl 25 MG 1 tablet as needed O rally every 12 hrs for 30 days 08/29/2024 Active Encounters Encounter Location Date Provider Diagnosis [facility] [address] [place] [address] 08/28/2024 Starla Hung Plan Of Treatment Medication Medication Name Sig Start Date Stop Date Notes Meclizine HCl 25 MG 1 tablet as needed O rally every 12 hrs for 30 days 08/29/2024 Progress Notes * Raphael CRUZDOB:1965 ( 59 yo M)Acc No.[id number]:08/28/2024 Patient: Raphael DICKINSON :1965 A ge:59 Y S ex:Male Address:[address] [place] [address] * Refills Start Meclizine HCl Tablet, 25 MG, Orally, 60 Tablet, 1 tablet as needed, every 12 hrs, 30 days, Refills=0 Subjective: * Chief Complaints: * L abs * Medical History: * Surgical History: * Hospitalization/Major Diagno stic Procedure: * Medications: Objective: * Vitals: * Physical Examination: Assessment: Plan: * Treatment: * Procedure Codes: * true * Date: Generated for Cornel nova/Mauro/Carter on: 05/26/2025 07:58 AM EDT
--- OUTSIDE RECORDS SUMMARY | 2024-09-21 16:28 | XMS_ITS ---
Author Organization The [facility] in [place] Address [address] [place] [address] Care Team Providers Care Superintendent Mechanical Name Role Phone Florentin Domingo Primary Care Provider Reason For Referral Diagnosis 1 Abnormal stress test (R94.39) Referral Organization [facility] Referring Provider First Name Florentin Referring Provider Last Name Chayo Referring Provider [facility] icine Referred Provider [facility] Cardiology, [facility] Referred Provider Specialty Cardiology Referral Priority Routine REASON FOR VISIT stress and CT results Encounters Encounter Location Date Provider Diagnosis [facility] [address] [place] [address] 09/21/2024 Florentin Omarlibia Abnormal stress test R94.39 Assessments Encounter Date Diagnosis (ICD Code) Assessment Notes Treatment Notes Treatment Clinical Notes Section Notes 09/21/2024 Abnormal stress test (ICD-10 - R94.39) Plan Of Treatment Referrals Referral Date Details 09/22/2024 09/22/2024, [facility] Cardiology Progress Notes * Raphael CRUZDOB:1965 ( 59 yo M)Acc No.[id number]:09/21/2024 Patient: Raphael DICKINSON :1965 A ge:59 Y S ex:Male Address:[address] [place] [id number] Subjective: * Chief Complaints: * s tress and CT results * Medical History: * Surgical History: * Hospitalization/Major Diagno stic Procedure: * Medications: Objective: * Vitals: * Physical Examination: Assessment: * Assessment: 1. A bnormal stress test - R94.39 (Primary) Plan: * Treatment: * Procedure Codes: * true * Date: Generated for Cornel nova/Mauro/Carter on: 0 05/26/2025 07:58 AM EDT Consultation Request Notes Referral Date Referring Provider Referred Provider Not es 09/22/2024 Florentin Domingo [facility] Cardiology, Specialty C [email or web address]
--- OUTSIDE RECORDS SUMMARY | 2025-05-26 07:58 | XMS_ITS | Clinical Summary ---
Author Organization The [facility] Address [address] [place] [address] Care Team Providers Care Bricklayer Tender Name Role Phone Robert Domingo MD Primary Care Provider [phone] Allergies Active Allergy Reactions Criticality Noted Date Comments Lisinopril Cough 09/23/2024 Medications aspirin 81 mg EC tablet Take 81 mg by mouth in the morning. Active irbesartan (Avapro) 300 mg tabletIndications :Essential hypertension Take 1 tablet (300 mg) by mouth once daily as directed. 90 tablet 3 4 09/23/20 25 Active meclizine (Antivert) 25 mg tablet Take 1 tablet by mouth Twice daily at 6am and 6pm. 4 Active NIFEdipine XL (Procardia XL) 60 mg 24 hr tabletIndications :Essential hypertension Take 1 tablet (60 mg) by mouth in the morning. Do not crush, chew, or split. 90 tablet 3 5 11/11/19 26 Active albuterol 90 mcg/actuation inhaler Inhale 1 puff every 4 (four) hours if needed. 5 Active pravastatin (Pravachol) 10 mg tabletIndications :Coronary artery disease involving [place] coronary artery of [place] heart without angina pectoris Take 1 tablet (10 mg) by mouth in the morning. 90 tablet 3 5 03/20/20 26 Active hydroCHLOROthiazi de (HYDRODiuril) 25 mg tabletIndications :Essential hypertension Take 1 tablet (25 mg) by mouth in the morning. 90 tablet 3 5 03/20/20 26 Active carvedilol (Coreg) 3.125 mg tabletIndications :Essential hypertension Take 1 tablet (3.125 mg) by mouth with breakfast and with evening meal. 180 tablet 3 5 03/20/20 26 Active Active Problems Problem Noted Date Diagnosed Date Current smoker 09/23/2024 Overview (09/23/2024): Added secondary to documentation in Social History. Abnormal stress test 09/23/2024 Encounters Date Type Department Care Team Description 03/20/2025 9:00 AM EDT Office Visit [facility] [address] [place] [address] Rigo Vazquez MD Coronary artery disease involving hoon[place] coronary artery of [place] heart without angina pectoris (Primary Dx); Essential hypertension; Shortness of breath from Last 3 Months Family History Medical History Relation Name Comments Diabetes Father CABG Mother Coronary artery disease Mother Diabetes Mother Relation Name Status Comments Brother Father Alive Mother Sister Alive Social History Tobacco Use Types Packs/Day Years Used Date Smoking Tobacco: Former Cigars Passive Smoke Exposure: Past Smokeless Tobacco: Never Tobacco Cessation:Counseling Given: Not Answered Comments:Nicotine pouches Alcohol Use Standard Drinks/Week Comments Not Currently 0 (1 standard drink = 0.6 oz pur e alcohol) Comments Unknown Sex and Gender Information Value Date Recorded Sex Assigned at Female 10/03/2024 8:59 AM EST Legal Sex Male 9:21 AM EST Gender Identity Male 10/03/2024 8:59 AM EST Sexual Orientation Choose not to disclose 2023 8:59 AM EST Last Filed Vital Signs Vital Sign Reading Time Taken Comments Blood Pressure 116/75 03/20/2025 8:49 AM EDT Pulse 72 03/20/2025 8:49 AM EDT Temperature - - Respiratory Rate 17 10/03/2024 12:42 PM EST Oxygen Saturation 96% 03/20/2025 8:49 AM EDT Inhaled Oxygen Concentration - - Weight 105 kg (231 lb) 03/20/2025 8:49 AM EDT Height 180.3 cm (5' 11 ) 03/20/2025 8:49 AM EDT Body Mass Index 32.22 03/20/2025 8:49 AM EDT Plan of Treatment Upcoming Encounters Date Type Department Care Team (Late st Contact Info) Description 05/29/2025 9:00 AM EDT Office [facility] [address] [place] [address] Rigo Vazquez MD [address] [facility] [place] [address] Health Maintenance Due Date Last Done Comments CT Colonography 1965 Colonoscopy 1965 Colorectal Cancer Screening 1965 FIT-DNA 1965 FIT 1965 FOBT 1965 Sigmoidoscopy 1963 Depression Screening 1975 Pneumococcal Vaccine: Pediat rics (0 to 5 Years) and At-Risk Patients (6 to 64 Years) (1 of 2 - PCV) 1982 Pap Smear 1984 Cervical Cancer Screening 1993 HPV/Cotest 1993 Mammogram 2003 Zoster Vaccines (1 of 2) 2013 COVID-19 Vaccine (2 - 2023-2 5 season) 2024 07/24/2021 Influenza Vaccine (#1) 2025 Adult Tetanus 01/04/2026 01/05/2016 HIB Vaccines Aged Out No longer eligi ble based on patient's age to complete this topic HPV Vaccines Aged Out No longer eligi ble based on patient's age to complete this topic IPV Vaccines Aged Out No longer eligi ble based on patient's age to complete this topic Meningococcal B Vaccine Aged Out No l onger eligible based on patient's age to complete this topic Meningococcal Vaccine Aged Out No gary gian eligible based on patient's age to complete this topic Rotavirus Vaccines Aged Out No longer eligible based on patient's age to complete this topic Insurance [employer] [place] [id number] Care Teams Bricklayer Tender Relationship Specialty Start Date End Date Robert Domingo MD [address] [facility] [address] [place] [id number] PCP - General 09/22/24
--- OUTSIDE RECORDS SUMMARY | 2025-05-26 07:58 | XMS_ITS | Clinical Summary ---
Author Organization [facility] Address [address] [facility] [place] [address] Care Team Providers Care Tactical Air Defense Controller Name Role Phone Unavailable Primary Care Provider Unavailabl e Social History Tobacco Use Types Packs/Day Years Used Date Smoking Tobacco: Never Assessed Sex and Gender Information Value Date Recorded Sex Assigned at Not on file Legal Sex Male 6:54 PM EDT Gender Identity Not on file Sexual Orientation Not on file Last Filed Vital Signs Vital Sign Reading Time Taken Comments Blood Pressure 158/96 03/17/2019 12:00 PM EDT Pulse - - Temperature - - Respiratory Rate - - Oxygen Saturation - - Inhaled Oxygen Concentration - - Weight 103 kg (228 lb) 05/30/2021 12:00 PM EDT Height 177.8 cm (5' 10 ) 05/30/2021 12:00 PM EDT Body Mass Index 32.71 05/30/2021 12:00 PM EDT Plan of Treatment Not on file Insurance [employer]
--- OUTSIDE RECORDS SUMMARY | 2025-05-26 07:58 | XMS_ITS | Clinical Summary ---
Author Organization [facility] Address [address] [place] [address] Phone Care Team Providers Care Construction Pit Worker Name Role Phone March, Mehdi Call MD Primary Care Provid er Social History Tobacco Use Types Packs/Day Years Used Date Smoking Tobacco: Never Assessed Sex and Gender Information Value Date Recorded Sex Assigned at Not on file Legal Sex Male 6:36 PM EST Gender Identity Not on file Sexual Orientation Not on file Plan of Treatment Not on file Care Teams Construction Pit Worker Relationship Specialty Start Date End Date March, Mehdi Call MD [address] [place] [address] PCP - General 05/14/10
--- OUTSIDE RECORDS SUMMARY | 2025-05-26 07:59 | XMS_ITS | Clinical Summary ---
Author Organization [facility] Address [address] [place], [place] [id number] Care Team Providers Care Securities Research Analyst Name Role Phone Jt Brownlee MD Primary Care Provider [phone] Social History Tobacco Use Types Packs/Day Years Used Date Smoking Tobacco: Never Assessed Sex and Gender Information Value Date Recorded Sex Assigned at Not on file Legal Sex Male 9:19 AM EST Gender Identity Not on file Sexual Orientation Not on file Plan of Treatment Health Maintenance Due Date Last Done Comments Anxiety Screening 1981 Depression Screening 1981 HIV Screening 1981 Hepatitis C Screening 1981 DTaP,Tdap,Td Vaccine (1 - Tdap) [address] Colonography 2008 Cologuard (FIT-DNA) 2008 Colonoscopy 2008 Colorectal Cancer Screening 2008 Diabetes Screening 2008 Fecal Occult Blood 2008 Prostate Cancer Screening Discussion 2008 Sigmoidoscopy 2008 Pneumococcal Vaccine: 50+ (1 of 1 - PCV) 2013 Shingrix Vaccine (1 of 2) 2013 Covid-19 Vaccine (1 - 2023- season) 2024 Influenza Vaccine (#1) 2025 RSV Vaccine (1 - 1-dose 75+ series) 2038 Insurance BLUE CARD PPO OOS Care Teams Securities Research Analyst Relationship Specialty Start Date End Date Jt Brownlee MD PCP - General 05/07/07
--- OUTSIDE RECORDS SUMMARY | 2025-05-26 07:59 | XMS_ITS | Patient Health Record ---
Author Organization The [facility] in [place] Address [address] [facility] [facility] [place] [address] Care Team Providers Care Terrazzo Mechanic Helper Name Role Phone Florentin Hernandez Primary Care Provider Starla Hung [phone] Allergies No Known Allergies Results Component Value Reference Range Notes INSULIN Reviewed date:08/29/2024 09:21:46 PM Interpretation: Performing Lab: Notes/Report: [facility] , Insulin 30.7 2.6-24.9 uIU/mL Filling Hauler Weaving: Clark Rodriguez PhD, Phone: [phone] Performed at: - [facility] [address] [id number] Performing Lab: see note - [facility] LB CBC AUTO DIFF Reviewed date:09/26/2024 02:18:07 PM Interpretation: Performing Lab: Notes/Report: [facility] , White Blood Count 9.3 4.0-11.0 10 3/uL Red Blood Count 5.28 4.70-6.10 10 6/uL Hemoglobin 16.4 14.0-18.0 g/dL Hematocrit 46.7 42.0-54.0 % Mean Corpuscular Volume 88.4 80.0-94.0 fL Mean Corpuscular Hemoglobin 31.1 25.9-34.0 pg Mean Corpuscular HGB Conc 35.1 29.9-35.2 g/dL Red Cell Distribution Width 12.1 11.0-15.0 % Platelet Count 279 150-450 10 3/uL Mean Platelet Volume 9.5 9.5-13.5 fL Neutrophils Percent Auto 60.8 43.0-75.0 % Lymphocytes Percent Auto 28.3 20.5-60.0 % Monocytes Percent Auto 8.0 1.7-12.0 % Eosinophils Percent Auto 2.0 0.9-7.0 % Basophils Percent Auto 0.6 0.2-2.0 % Immature Granulocytes Pct Auto 0.3 0.0-0.5 % Neutrophils Absolute Auto 5.7 1.4-6.5 10 3/uL Lymphocytes Absolute Auto 2.6 1.2-3.8 10 3/uL Monocytes Absolute Auto 0.8 0.3-0.8 10 3/uL Eosinophils Absolute Auto 0.2 0.0-0.7 10 3/uL Basophils Absolute Auto 0.1 0.0-0.1 10 3/uL Immature Granulocytes Abs Auto 0.03 0.00-0.03 10 3/uL Performing Lab: see note ML - [facility] PROF CHEM 8 (BAS METB) Reviewed date:09/26/2024 02:18:07 PM Interpretation: Performing Lab: Notes/Report: [facility] , Sodium 144 136-145 mmol/L Potassium 4.2 3.5-5.1 mmol/L Chloride 107 98-107 mmol/L Carbon Dioxide 26.1 21.0-32.0 mmol/L Anion Gap 15.1 Glucose 107 74-106 mg/dL Blood Urea Nitrogen 15.0 7.0-18.0 mg/dL Creatinine 1.17 0.70-1.30 mg/dL Estimated GFR ( Danya >60 >=60 mL/min/1.73m 2 Estimated GFR (Non- Judy >60 >=60 mL/min/1.73m 2 BUN Creatinine Ratio 12.8 Calcium 8.7 8.5-10.1 mg/dL Performing Lab: see note ML - [facility] LB URIC ACID SERUM Reviewed date:08/28/2024 09:46:49 PM Interpretation: Performing Lab: Notes/Report: [facility] , Uric Acid 8.0 3.5-7.2 mg/dL Performing Lab: see note - [facility] LB TSH Reviewed date:08/28/2024 09:46:49 PM Interpretation: Performing Lab: Notes/Report: [facility] , Thyroid Stimulating Hormone 0.833 0.358-3.740 uIU/mL Performing Lab: see note ML - [facility] LB T4 Reviewed date:08/28/2024 09:46:49 PM Interpretation: Performing Lab: Notes/Report: [facility] , T4 Thyroxine 8.30 4.50-12.10 ug/dL Performing Lab: see note ML - [facility] LB PSA SCREENING Reviewed date:08/28/2024 09:46:49 PM Interpretation: Performing Lab: Notes/Report: [facility] , Prostate Specific Antigen Scrn 1.03 <=4.00 ng/mL Performing Lab: see note ML - [facility] PROF 14(COMP METB) Reviewed date:08/28/2024 09:46:49 PM Interpretation: Performing Lab: Notes/Report: [facility] , Sodium 143 136-145 mmol/L Potassium 4.1 3.5-5.1 mmol/L Chloride 107 98-107 mmol/L Carbon Dioxide 28.5 21.0-32.0 mmol/L Anion Gap 11.6 Glucose 112 74-106 mg/dL Blood Urea Nitrogen 17.0 7.0-18.0 mg/dL Creatinine 1.09 0.70-1.30 mg/dL Estimated GFR ( Danya >60 >=60 mL/min/1.73m 2 Estimated GFR (Non- Judy >60 >=60 mL/min/1.73m 2 BUN Creatinine Ratio 15.6 Calcium 8.9 8.5-10.1 mg/dL Bilirubin Total 1.2 0.2-1.0 mg/dL Aspartate Amino Transferase 23 15-37 U/L Alanine Aminotransferase 34 16-63 U/L Alkaline Phosphatase 63 46-116 U/L Total Protein 7.4 6.4-8.2 g/dL Albumin Level 3.5 3.4-5.0 g/dL Globulin 3.9 Albumin Globulin Ratio 0.9 Performing Lab: see note ML - [facility] LB LIPID PROFILE Reviewed date:08/28/2024 09:46:49 PM Interpretation: Performing Lab: Notes/Report: [facility] , Triglycerides 132 <=150 mg/dL Cholesterol 132 <=200 mg/dL HDL Cholesterol 38 40-60 mg/dL <40 mg/dl - HIGH CARDIOVASCULAR RISK > or =60 mg/dl - LOW CARDIOVASCULAR RISK LDL Cholesterol Calculated 68.0 <100 mg/dl OPTIMAL 130-159 mg/dl BORDERLINE HIGH >190 mg/dl VERY HIGH 100-129 mg/dl NEAR OR ABOVE OPTIMAL 160-189 mg/dl HIGH VLDL CHOLESTEROL 26.4 Chol HDL Ratio 3.5 >11.0 HIGH RISK 7.1 - 11.0 MODERATE RISK 3.3 - 4.4 LOW RISK 4.4 - 7.1 AVERAGE RISK Performing Lab: see note ML - [facility] LB GLYCOHEMOGLOBIN A1C Reviewed date:08/28/2024 09:46:49 PM Interpretation: Performing Lab: Notes/Report: [facility] , Glycohemoglobin A1C 5.7 4.5-6.2 % ACTION SUGGESTED ADA THERAPEUTIC TARGET < 7.0 ADA RECOMMENDED LIMIT 4.0 - 6.0 > 7.0 Estimated Average Glucose 117 Performing Lab: see note [facility] LB FREE T3 Reviewed date:08/28/2024 09:46:49 PM Interpretation: Performing Lab: Notes/Report: [facility] , Free T3 3.34 2.18-3.98 pg/mL Performing Lab: see note - [facility] LB CBC AUTO DIFF Reviewed date:08/28/2024 09:46:49 PM Interpretation: Performing Lab: Notes/Report: [facility] , White Blood Count 9.8 4.0-11.0 10 3/uL Red Blood Count 5.42 4.70-6.10 10 6/uL Hemoglobin 16.8 14.0-18.0 g/dL Hematocrit 47.7 42.0-54.0 % Mean Corpuscular Volume 88.0 80.0-94.0 fL Mean Corpuscular Hemoglobin 31.0 25.9-34.0 pg Mean Corpuscular HGB Conc 35.2 29.9-35.2 g/dL Red Cell Distribution Width 11.9 11.0-15.0 % Platelet Count 310 150-450 10 3/uL Mean Platelet Volume 9.8 9.5-13.5 fL Neutrophils Percent Auto 59.1 43.0-75.0 % Lymphocytes Percent Auto 31.3 20.5-60.0 % Monocytes Percent Auto 6.6 1.7-12.0 % Eosinophils Percent Auto 1.9 0.9-7.0 % Basophils Percent Auto 0.8 0.2-2.0 % Immature Granulocytes Pct Auto 0.3 0.0-0.5 % Neutrophils Absolute Auto 5.8 1.4-6.5 10 3/uL Lymphocytes Absolute Auto 3.1 1.2-3.8 10 3/uL Monocytes Absolute Auto 0.6 0.3-0.8 10 3/uL Eosinophils Absolute Auto 0.2 0.0-0.7 10 3/uL Basophils Absolute Auto 0.1 0.0-0.1 10 3/uL Immature Granulocytes Abs Auto 0.03 0.00-0.03 10 3/uL Performing Lab: see note ML - [facility] LB CT chest wo con Reviewed date:09/22/2024 01:37:39 PM Interpretation: Performing Lab: Notes/Report: Source Facility: [place] [address] CT Scan Report Signed Patient: MICHAEL CRUZ MR#: [id number] : 1965 Acct:[id number] Age/Sex: 59 / M ADM Date: 09/21/24 Loc: NM Attending Dr: Jm Hernandez M.D. Ordering Physician: Jm Hernandez M.D. Date of Service: 09/21/24 Procedure(s): CT chest wo con Accession Number(s): [id number] cc: Jm Hernandez M.D. [place] [address] Patient Name: MICHAEL CRUZ MRN: [facility]:[id number] date: 1965 Sex: M Assigned Patient Location: [place] Current Patient Location: Accession/Order Number: [id number] Exam Date: 09/21/2024 10:24 Report Date: 09/22/2024 04:56 At the request of: JM HERNANDEZ Procedure: CT chest wo con EXAMINATION: CT chest wo con HISTORY: Lung Mass follow-up COMPARISON: CT chest 07/04/2023 TECHNIQUE: Axial, Coronal, and Sagittal images were created without the administration of IV contrast material. Dose reduction techniques were achieved by using automated exposure control and/or adjustment of mA and/or kV according to patient size and/or use of iterative reconstruction technique. FINDINGS: LUNGS: Stable 8 mm irregular nodule within posterior lateral right costophrenic angle. Stable appearance of a few additional 3 mm nodules scattered within the lungs. No new nodules or acute infiltrates. PLEURA: No mass, effusion, or pneumothorax. VASCULATURE: No abnormality. BALDOMERO: A few calcified lymph nodes suggestive chronic granulomatous disease. MEDIASTINUM: No mass or pathologic adenopathy. CARDIAC: No enlargement, pericardial thickening, or pericardial effusion. Coronary Artery calcifications: Coronary calcifications are absent. AORTA: No aneurysm or dissection. CHEST WALL: No mass or axillary adenopathy BONES: No bone lesion or fracture. LIMITED ABDOMEN: No suspicious findings. Limited images of the upper abdomen. OTHER: Negative. CT/CT chest wo con IMPRESSION: 1. Lung-RADS 2- Benign Appearance or Behavior. Nodules with a very low likelihood of becoming a clinically active cancer due to size or lack of growth. Follow-up CT Chest in 1 year. Electronically authenticated by: JOSE CHAVES Date: 09/22/2024 04:56 Dictated By: Jose Chaves M.D. Signed By: 09/22/24458 DD/ 5 TD/TT: Traffic Operations Manager: [place] [address] CT Scan Report Signed Patient: MICHALE CRUZ MR#: [id number] : 1965 Acct:[id number] Age/Sex: 59 / M ADM Date: 09/21/24 Loc: NM Attending Dr: Raji Hernandez M.D. Ordering Physician: Jm Hernandez M.D. Date of Service: 09/21/24 Procedure(s): CT chris st wo con Accession Number(s): [id number] cc: Jm Hernandez M.D. [address] [address] Patient Name: MICHAEL CRUZ MRN: [id number] date: 1965 Sex: M Assigned Patient Location: [place] Current Patient Location: Accession/Order Number: [id number] Exam Date: 10:24 Report Date: 09/22/2024 04:56 At the request of: JM HERNANDEZ Procedure: CT chest wo con EXAMINATION: CT ches t wo con HISTORY: Lung Mass follow-up COMPARISON: CT chest 07/04/2023 TECHNIQUE: Axial, Coronal, and Sagittal images were created without the administration of IV contrast material. Dose reduction techniques were achieved by using automated exposure control and/or adjustment of mA and/or kV according to patient size and/ or use of iterative reconstruction technique. FINDINGS: LUNGS: Stable 8 mm irregular nodule within posterior lateral right costophrenic angle. Stable appearance of a few additional 3 mm nodules scattered within the lungs. No new nodule s or acute infiltrates. PLEURA: No mass, effusion, or pneumothorax. VASCULATURE: No abnormality. BALDOMERO: A few calcifie d lymph nodes suggestive chronic granulomatous disease. MEDIASTINUM: No mass or pathologic adenopathy. CARDIAC: No enlargement, pericardial thickening, or pericardial effusion. Coronary Artery calcifications: Coronary calcifications are absent. AORTA: No aneurysm o r dissection. CHEST WALL: No mass or axillary adenopathy BONES: No bone lesio n or fracture. LIMITED ABDOMEN: No suspicious findings. Limited images of the upper abdomen. OTHER: Negative. CT/CT chest wo con IMPRESSION: 1. Lung-RADS 2- Al gn Appearance or Behavior. Nodules with a very low likelihood of becomi ng a clinically active cancer due to size or lack of growth. Follow-up CT Chest in 1 year. Electronically authenticated by: JOSE CHAVES Date: 09/22/2024 04:56 Dictated By: Jose Chaves M.D. Signed By: 09/22/24 0459 DD/ 0456 TD/TT: Traffic Operations Manager: [facility] [place] perf SPECT rest str Reviewed date:09/21/2024 08:29:03 PM Interpretation: Performing Lab: Notes/Report: Source Facility: [place] [address] [place] [address] Nuclear Medicine Report Signed Patient: MICHAEL CRUZ MR#: [id number] : 1965 Acct:[id number] Age/Sex: 59 / M ADM Date: 09/21/24 Loc: [facility] Attending Dr: Jm Hernandez M.D. Ordering Physician: Jm Hernandez M.D. Date of Service: 09/21/24 Procedure(s): NM jn perf SPECT rest str Accession Number(s): [id number] cc: Jm Hernandez M.D. Patient Name: MICHAEL CRUZ MR#: [id number] : 1965 Exam Date: 09/21/2024 Ordering Doctor: DR Jm Hernandez . RADIOLOGY REPORT PROCEDURE: NM JN PERF SPECT REST STR COMPARISON: None. INDICATIONS: CHEST PAIN, SHORTNESS OF BREATH TECHNIQUE: Exam Description: Rest/Stress one day protocol gated SPECT Rest Imagin.9 mCi Tc-99m Cardiolite IV on 09/21/2024 Stress Imaging 29.9 mCi Tc-99m Cardiolite IV on 09/21/2024 Exercise Protocol: 0.4 mg Lexiscan given IV Heart Rate (bpm): Rest: 56 Max: 88 PMHR: 55 Blood Pressure: Rest: 188/94 Max: 196/98 Symptoms: Rest and peak stress ECG findings were abnormal and the exercise portion of the study was Non-diagnostic per attending physician Dr. Smith due to EKG changes, inverted T waves. For more details please see separate cardiac stress test report. FINDINGS: QUALITY OF STUDY: Good. PERFUSION DEFECT: LOCATION: Basal inferior. Mid-inferior. Apical inferior. [place]. SIZE: Medium (3-4 segments). SEVERITY: Moderate. TYPE: Persistent. WALL MOTION: Mild hypokinesis: LV SIZE: Enlarged; EDV 145 mL. TID / TCD: None; 1.0 LVEF: Abnormal. Calculated EF 48%. SUMMARY: Myocardial perfusion imaging study has ABNORMAL findings. CONCLUSION: 1. 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 2. No redistribution on rest images to suggest an area of reversible ischemia 3. Dilated left ventricle, end-diastolic volume 145 milliliters 4. Low left ventricular ejection fraction of 48% Dictated by: Michael Sevilla MD on 09/21/2024 at 14:27 Approved by: Michael Sevilla MD on 09/21/2024 at 14:56 Dictated By: Michael Sevilla M.D. Signed By: 09/21/24 1458 DD/ 1456 TD/TT: Traffic Operations Manager: [place] [address] Nuclear Medicine Report Signed Patient: MICHAEL CRUZ MR#: [id number] : 1965 Acct:[id number] Age/Sex: 59 / M ADM Date: 09/21/24 Loc: NM Attending Dr: Raji Hernandez M.D. Ordering Physician: Jm Hernandez M.D. Date of Service: 09/21/24 Procedure(s): NM jn perf SPECT rest str Accession Number(s): [id number] cc: Jm Hernandez M.D. Patient Name: MICHAEL CRUZ MR#: [id number] : 1965 Exam Date: 09/21/2024 Ordering Doctor: DR Jm Hernandez . RADIOLOGY REPORT PROCEDURE: NM JN PE RF SPECT REST STR COMPARISON: None. INDICATIONS: CHEST PAIN, SHORTNESS OF BREATH TECHNIQUE: Exam Description: Rest/Stress one day protocol gated SPECT Rest Imagin.9 mC i Tc-99m Cardiolite IV on 09/21/2024 Stress Imaging 29.9 mCi Tc-99m Cardiolite IV on 09/21/2024 Exercise Protocol: 0 .4 mg Lexiscan given IV Heart Rate (bpm): Rest: 56 Max: 88 PMHR: 55 Blood Pressure: Rest : 188/94 Max: 196/98 Symptoms: Rest and peak stress ECG findings were abnormal and the exercise portion of the study was Non-diagnostic per attending physician Dr. Smith due to EKG changes, inverted T waves. For more details please see separate cardiac stress test report. FINDINGS: QUALITY OF STUDY: Good. PERFUSION DEFECT: LOCATION: Basal inferior. Mid-inferior. Apical inferior. [place]. SIZE: Medium (3-4 segments). SEVERITY: Moderate. TYPE: Persistent. WALL MOTION: Mild hypokinesis: LV SIZE: Enlarged; E DV 145 mL. TID / TCD: None; 1.0 LVEF: Abnormal. Calculated EF 48%. SUMMARY: Myocardial perfusion imaging study has ABNORMAL findings. CONCLUSION: 1. 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 2. No redistribution on rest images to suggest an area of reversible ischemia 3. Dilated left ventricle, end-diastolic volume 145 milliliters 4. Low left ventricular ejection fraction of 48% Dictated by: Michael Sevilla MD on 09/21/2024 at 14:27 Approved by: Michael Sevilla MD on 09/21/2024 at 14:56 Dictated By: Michael Sevilla M.D. Signed By: 09/21/24 1458 DD/ 1456 TD/TT: Traffic Operations Manager: Reason For Referral Reason screening colonoscop y Diagnosis 1 Well adult (Z00.00) Referral Organization [facility] Referring Provider First Name Florentin Referring Provider Last Name Chayo Referring Provider [facility] Referred Provider Benjamin Stuart Referred Provider Specialty General Surg randy Referral Priority Routine Reason Patient has history of Crohns Diagnosis 1 Well adult (Z00.00) Referral Organization [facility] Referring Provider First Name Florentin Referring Provider Last Name Chayo Referring Provider [facility] Referred Provider Song Gannon Referred Provider Specialty Gastroentero logy Referral Priority Routine Diagnosis 1 Abnormal stress test (R94.39) Referral Organization [facility] Referring Provider First Name Florentin Referring Provider Last Name Chayo Referring Provider [facility] Ref[facility]erred Provider Specialty Cardiology Referral Priority Routine Medications Medication SIG (Take, Route, Frequency, Duration) Notes Start Date End Date Status Meclizine HCl 25 MG TAKE 1 TABLET BY SNEHA TH EVERY 12 HOURS NEEDED FOR 30 DAYS for 30 Active Irbesartan 150 MG 1 tablet Orally Once a day for 30 Active Metoprolol Tartrate 50 MG 1 tablet with food Orally Twice a day for 30 days 08/24/2024 Active predniSONE 20 MG 3 tablets Orally Onc e a day for 5 days 05/24/2025 Active Social History Tobacco Use: Social History Observation Description Date Details (start date - stop date) Current Smoker 11/02/1988 - NA Tobacco Use/Smoking Question Answer Notes Patient is a current smoker When did you start smoking? 11/02/1988 How often do you smoke cigarettes? every day How many cigarettes a day do you smoke? 11-20 How soon after you wake up d o you smoke your first cigarette? 6-30 minutes Are you interested in quitting? Thinking about q uitting Alcohol Screen (Audit-C) Question Answer Notes Did you have a drink contain ing alcohol in the past year? Yes How often did you have 6 or more drinks on one occasion in the past year? Never (0 point) How many drinks did you have on a typical day when you were drinking in the past year? 1 or 2 drinks (0 point) How often did you have a dri nk containing alcohol in the past year? Less than monthly (1 point) Points 1 Interpretation Negative Problems Problem Type SNOMED Code ICD Code Onset Dates Problem Status W/U Status Risk Notes Problem Chest pain (02507904) Chest pain (R07.9) Active confirmed Problem Hypertension (45786341) Hypertension (I10) Active confirmed Problem Rectal bleeding (47975618) Rectal bleeding (K62.5) Active confirmed Problem Well adult (013883779) Well adult (Z00.00) Active confirmed Problem Solitary nodule of lung (473705016) Lung nodule (R91.1) Active confirmed Problem Near syncope (455366688) Near syncope (R55) Active confirmed Problem Crohn's disease of large bowel (6022678) Crohns colitis, other complication (K50.118) Active confirmed Problem Prediabetes (324929521) Pre-diabetes (R73.03) Active confirmed Vital Signs Blood pressure diastolic 120 mm Hg 08/24/2024 Height 71 in 08/24/2024 Blood pressure systolic 212 mm Hg 08/24/2024 Weight 232.0 lbs 08/24/2024 BMI 32.35 kg/m2 08/24/2024 Procedures Procedure Date Ordered Date Performed Result Body Sit e CARDIO Stress Test - Cardiolite 08/24/2024 N/A Encounters Encounter Location Date Provider Diagnosis [address] [address] 08/26/2024 Florentin Hernandez Well adult Z00.[address] [address] 08/28/2024 Starla Hung [facility] [address] [place] [phone] 09/21/2024 Florentin Hernandez Abnormal stress test R94.[address] [address] 05/24/2025 Florentin Hernandez [address] [address] 08/24/2024 Florentin Hernandez Hypertension I10 ; Well adult Z00.00 ; Chest pain R07.9 ; Near syncope R55 and Lung mass R91.8 Assessments Encounter Date Diagnosis (ICD Code) Assessment Notes Treatment Notes Treatment Clinical Notes Section Notes 08/24/2024 Hypertension (ICD-10 - I10) 08/24/2024 Well adult (ICD-10 - Z00.00) 08/26/2024 Well adult (ICD-10 - Z00.00) 09/21/2024 Abnormal stress test (ICD-10 - R94.39) 08/24/2024 Chest pain (ICD-10 - R07.9) 08/24/2024 Near syncope (ICD-10 - R55) 08/24/2024 Lung mass (ICD-10 - R91.8) Plan Of Treatment Pending Test Test Name Order Date Exercise Treadmill Stress Test (TMST) CMP (COMPLETE METABOLIC PANEL) 4 HEMOGLOBIN A1C (GLYCO) 08/24/2024 INSULIN, TOTAL 08/24/2024 LIPID PANEL (CHOL/TRIG/HDL/LDL) 08/24/20 24 CBC WITH DIFF 08/24/2024 PSA, PROSTATE-SPECIFIC ANTIGEN 3 URIC ACID 08/24/2024 CARDIO Stress Test - Cardiolite 08/24/20 24 CARDIO Stress Test - Treadmill Exercise Nuclear 03/19/2023 CT Chest Low Dose for Screening* 023 PSA, TOTAL 08/24/2024 CT CHEST WO CON 08/24/2024 CT CHEST W CON 06/23/2023 THYROID PANEL (T4/TSH/FREE T3) 4 THYROID PANEL (T4/TSH/FREE T3) 3 PET skull to mid thigh 08/24/2024 Insurance Providers Payer Name Payer Address Payer Phone Subscriber Number Group Number Insured Name Patient Relationship to Insured Coverage Start Date Coverage End Date MMO [address] [place], [place] [id number] Michael Holt Self - patient is the insured 4 Medical (General) History Medical History History ICD Code Crohn disease K50.90 Hypertension I10 Vertigo R42 Surgical History Surgery Date(Month/Year) Left Hand Surgery hx of Seton implanted in Rectum colonoscopy Dr Stuart 10/21/2024
--- OUTSIDE RECORDS SUMMARY | 2025-05-26 07:59 | XMS_ITS | Clinical Summary ---
Author Organization FirstString tem Address [id number] [address] [place] [address] Care Team Providers Care Transport Pilot Name Role Phone Unavailable Primary Care Provider Unavailabl e Allergies No known active allergies Medications irbesartan (AVAPRO) 150 mg tablet TAKE 1 TABLET BY MOUTH EVERY DAY 10/15/2023 Active Active Problems No known active problems Social History Tobacco Use Types Packs/Day Years Used Date Smoking Tobacco: Every Day Cigars Smokeless Tobacco: Never Tobacco Cessation:Ready to Q uit: Not Asked; Counseling Given: Not Answered Hunger Screening Answer Date Recorded Within the past 12 months we worried whether our food would run out before we got money to buy more. Never True 10/28/2023 Within the past 12 months th e food we bought just didn't last and we didn't have money to get more. Never True 10/28/2023 Sex and Gender Information Value Date Recorded Sex Assigned at Not on file Legal Sex Male 10:03 AM EST Gender Identity Not on file Sexual Orientation Not on file Last Filed Vital Signs Vital Sign Reading Time Taken Comments Blood Pressure 187/113 10/28/2023 10:26 AM EST Pulse 86 10/28/2023 10:18 AM EST Temperature 36.7 C (98 F) 10/28/2023 10:18 AM EST Respiratory Rate 16 10/28/2023 10:18 AM EST Oxygen Saturation 98% 10/28/2023 10:18 AM EST Inhaled Oxygen Concentration - - Weight 102.1 kg (225 lb) 10/28/2023 10:18 AM EST Height 180.3 cm (5' 11 ) 10/28/2023 10:18 AM EST Body Mass Index 31.38 10/28/2023 10:18 AM EST Plan of Treatment Health Maintenance Due Date Last Done Comments Depression Screening 1975 Zoster (Shingles) Vaccine (1 of 2) 2013 Adult BMI Screening 10/28/2024 10/28/2023 Tobacco Screening 10/28/2024 10/28/2023 Influenza Vaccine 07/03/2025 DTaP,Tdap and Td Vaccines (2 - Td or Tdap) 01/04/2026 01/05/2016 Medical Devices Not on file Insurance [employer]
--- OUTSIDE RECORDS SUMMARY | 2025-05-26 08:09 | XMS_ITS | CCD ---
Author Organization [facility] Care Team Providers Care Barrel Liner Name Role Phone Jose Mobley Admitting Unavailable Jose Mobley Attending Unavailable March, Mehdi Primary Care Unavailable Robert Domingo Primary Care Unavailable Song Gannon Attending Unavailable Song Gannon Admitting Unavailable Song Gannon MD Attending Provider Robert Domingo MD Primary Care Provider [phone] ERNIE NULL Attending Unavailable CRISTOBAL BAXTER Attending Unavailable CRISTOBAL BAXTER Admitting Unavailable CRISTOBAL BAXTER Attending Unavailable CRISTOBAL BAXTER Referring Unavailable CRISTOBAL BAXTER Attending Unavailable Robert Domingo MD Primary Care Provider [phone] Mirtha Allen PA-C Attending Provider Song Gannon MD Attending Provider Allergies Allergy Classification Reported Allergen(s) Allergy Type Date of Onset Reaction(s) Facility (1 source) Lisinopril; Translations: [LISINOPRIL] Drug Allergy 09-23-2024 [facility] Repository Medications Current Medications Medication Drug Class(es) Dates Sig (Normalized) Sig (Original) [id number] 200 actuat albuterol 0.09 mg/actuat metered dose inhaler (1 source) beta2-Adrenergic Agonist Start: 12-26-2024 Albuterol Sulfate 90 mcg/actuation HFA aerosol inhaler Active 2 INH INHALATION EVERY 4-6 HOURS as needed for shortness of breath or wheezing 6.7 December 26, 2024 1:00am Complies with drug therapy Albuterol Sulfate 90 mcg/actuation HFA aerosol inhaler (1 source) Start: 12-26-2024 Albuterol Sulfate 90 mcg/actuation HFA aerosol inhaler Active 2 INH INHALATION EVERY 4-6 HOURS as needed for shortness of breath or wheezing 6.7 December 26, 2024 12:00am aspirin 81 mg delayed release oral tablet (2 sources) Platelet Aggregation Inhibitor, Nonsteroidal Anti-inflammatory Drug Start: 12-26-2024 Aspirin (Adult Low Dose Aspirin) 81 mg tablet,delayed release (DR/EC) Active 81 MG PO Daily December 26, 2024 1:00am Complies with drug therapy carvedilol 3.125 mg oral tablet (3 sources) alpha-Adrenergic Casie, beta-Adrenergic Casie Start: 04-18-2025 take 1 tablet by mouth once Carvedilol 3.125 mg tablet Active 3.125 MG PO Once April 18, 2025 12:00am Complies with drug therapy Start: 12-26-2024 End: 04-18-2025 take 1 tablet by mouth twice daily Carvedilol 12.5 mg tablet Discontinued 12.5 MG PO Twice daily December 26, 2024 1:00am April 18, 2025 9:59am hydroCHLOROthiazide 25 mg oral tablet (1 source) Thiazide Diuretic Start: 04-18-2025 take 1 tablet by mouth once daily Hydrochlorothiazide 25 mg tablet Active 25 MG PO Daily April 18, 2025 12:00am Complies with drug therapy irbesartan 300 mg oral tablet (4 sources) Angiotensin 2 Receptor Casie Start: 12-26-2024 take 1 tablet by mouth once daily Irbesartan 300 mg tablet Active 300 MG PO Daily December 26, 2024 1:00am Complies with drug therapy Start: 10-07-2024 End: 12-26-2024 take 1 tablet by mouth once daily Irbesartan 150 mg tablet Discontinued 150 MG PO Daily October 07, 2024 1:00am December 26, 2024 4:17pm meclizine hydrochloride 25 mg oral tablet (1 source) Antiemetic Start: 04-18-2025 take 1 tablet by mouth twice daily as needed Meclizine 25 mg tablet Active 25 MG PO Twice daily as needed April 18, 2025 12:00am Complies with drug therapy NIFEdipine 60 mg osmotic 24 hr extended release oral tablet (2 sources) Dihydropyridine Calcium Channel Casie Start: 12-26-2024 take 1 tablet by mouth once daily Nifedipine 60 mg tablet extended release 24hr Active 60 MG PO daily December 26, 2024 1:00am Complies with drug therapy pravastatin sodium 10 mg oral tablet (1 source) HMG-CoA Reductase Inhibitor Start: 04-18-2025 take 1 tablet by mouth once daily Pravastatin 10 mg tablet Active 10 MG PO Daily April 18, 2025 12:00am Complies with drug therapy Completed/Discontinued Medications Medication Drug Class(es) Dates Sig (Normalized) Sig (Original) atorvastatin 40 mg oral tablet (2 sources) HMG-CoA Reductase Inhibitor Start: 12-26-2024 End: 12-26-2024 take 1 tablet by mouth once daily Atorvastatin 40 mg tablet Discontinued 40 MG PO Daily December 26, 2024 1:00am December 26, 2024 4:23pm azithromycin 250 mg oral tablet (2 sources) Macrolide Antimicrobial Start: 12-26-2024 End: 04-18-2025 Azithromycin 250 mg tablet Discontinued 0 PO .COMPLEX 6 December 26, 2024 1:00am April 18, 2025 9:58am For 250 mg dose pack: take 500 mg today (day 1), then 250 mg for 4 days (days 2-5) PO predniSONE 10 mg oral tablet (3 sources) Start: 04-18-2025 End: 04-27-2025 Prednisone 10 mg tablet Discontinued 0 PO daily 30 April 18, 2025 12:00am April 27, 2025 1:32pm 5 tablets x2 days, then 4 tab x2 days, then 3 tab x2 days, then 2 tab x2 days, then 1 tab x2 days orally daily; see taper instructions Start: 12-26-2024 End: 04-18-2025 take 2 tablets by mouth once daily Prednisone 20 mg tablet Discontinued 40 MG PO Daily 10 5 December 26, 2024 1:00am April 18, 2025 9:58am Sod Picosulf-Mag Ox-Citric A c (2 sources) Start: 09-19-2024 End: 04-18-2025 Sod Picosulf-Mag Ox-Citric A c (Clenpiq) 10 mg-3.5 gram- 12 gram/175 mL solution Discontinued 175 ML PO .COMPLEX 350 1 September 19, 2024 1:00am April 18, 2025 10:00am Follow instructions given by office Start: 09-19-2024 Sod Picosulf-M ag Ox-Citric Ac (Clenpiq) 10 mg-3.5 gram- 12 gram/175 mL solution Active 175 ML PO .COMPLEX 350 1 September 19, 2024 12:00am Follow instructions given by office Problems Active Problems Problem Classification Problem Date Documented Da te Episodic/Chronic Coronary atherosclerosis and other heart disease (2 sources) Atherosclerotic heart disease of [place] coronary artery without angina pectoris; Translations: [Atherosclerotic heart disease of [place] coronary artery without angina pectoris] Onset: 03-20-2025 Chronic Essential hypertension (4 sources) Hypertensive disorder; Translations: [Essential (primary) hypertension] Onset: 03-20-2025 12-26-2024 Chronic Gastrointestinal hemorrhage (2 sources) Rectal hemorrhage; Translations: [Hemorrhage of anus and rectum] 04-27-2025 Episodic Gout and other crystal arthropathies (2 sources) Acute gout; Translations: [Gout, unspecified] 04-18-2025 Chronic Other lower respiratory disease (2 sources) Nodule of lung; Translations: [Solitary pulmonary nodule] 12-26-2024 Episodic Other lower respiratory disease (2 sources) Respiratory tract infection; Translations: [Other specified respiratory disorders] 12-26-2024 Episodic Other lower respiratory disease (1 source) Other specified respiratory disorders; Translations: [Other diseases of respiratory system, not elsewhere classified] 12-26-2024 Episodic Other lower respiratory disease (2 sources) Shortness of breath; Translations: [Shortness of breath] Onset: 03-20-2025 Episodic Past or Other Problems Problem Classification Problem Date Documented Date Episodic/Chronic Other screening for suspected conditions (not mental disorders or infectious disease) (3 sources) Encounter for screening for malignant neoplasm of colon; Translations: [Abnormal result of other cardiovascular function study] Onset: 09-23-2024 Episodic Results Test Name Value Interpretation Reference Range Facility Office Visiton 03-20-2025 Follow-up visit [id number] Hal Ornelas 1965 M Date Provider Department Center 03/20/2025 ERNIE LOYA Family History Problem Relation Age of Onset Diabetes Mother Coronary artery disease Mother Other Mother Diabetes Father Family Status - Relation Status Age at Mother Father Alive Sister Alive Brother Level of Service:98393 CT OFFICE/OUTPATIENT ESTABLISHED MOD MDM 30 MIN Normal [facility] Follow-Upon 11-11-2024 Follow-Up [id number] Hal Ornelas edilberto Kimble 1965 M Date Provider Department Center 11/11/2024 3848-CRISTOBAL BAXTER MANUEL Cherry Family History Problem Relation Age of Onset Diabetes Mother Coronary artery disease Mother Other Mother Diabetes Father Family Status - Relation Status Age at Mother Father Level of Service:62035 CT OFFICE/OUTPATIENT ESTABLISHED MOD MDM 30 MIN Normal [facility] No Panel InformationOrdered By: Song Gannon on 10-21-2024 Miscellaneous Pathology Test See comment [facility] Comment on above: See report. Scanned copy available in EMR. Pathology Request for Lab Co rpon 10-21-2024 Pathology Request for Lab Shane[place] Normal [facility] Comment on above: Order Comment: PATHO LOGY GI SPECIMEN Result Comment: See report. Scanned copy available in EMR. PERFORMED BY: [place] [address] PATHOLOGIST [employer]IP[employer] MARCO ANTONIO ALDRICH M.D. Performed By: #### P ATH TO [facility] #### [address] HPon 10-03-2024 HP - Attestation signed by Cristobal Baxter MD at 10/03/2024 10:05 AM H and P reviewed. No significant changes. Patient presenting with unstable angina, abnormal stress test. Plan to proceed with cath. Procedure was explained to patient at length and in detail. Risks, benefits, and alternatives were discussed. Patient is informed that risks of this invasive procedure include, but are not limited to, bleeding, hematoma, kidney injury, CVA, arrythmia requiring defibrillation, need for emergent open heart surgery, and . Patient understands these risks and wishes to proceed. Cristobal Baxter MD H&P reviewed. The patient was examined and there are no changes to the H&P. Discussed risks, benefits, and alternative therapies with the patient, he understands and willing to proceed with RHC/coronary angiogram and possible PCI. Marizol Roman MD PGY-7 Interventional Emblem Cutter [facility] NURSNOTPhilippon 10-03-2024 NURSNOTE RN educated pt on d/ c instructions. This included: site care, limited physical activity, resume normal diet, future appointments, medications, and moderate sedation instructions. RN educated pt on when to notify physician and when to go to the hospital. RN provided pt with arm sling and educated pt on importance of not using arm for 24 hours for radial sites. RN encouraged pt to voice any questions or concerns, and answered any questions or concerns if pt verbalized. Pt was wheeled off of unit with all of belongings. [facility] HPon 09-23-2024 Cardiology Clinic Note Chief Complaint: New patient for abnormal stress test HPI: Raphael Ornelas is a 59 y.o. male who has a past medical history of Abnormal ECG, Crohn's colitis (CMS/HCC), and Hypertension. that is referred to Cardiology clinic for evaluation of abnormal stress test. He was recently started on metoprolol and irbesartan. He's taken lisinopril in the past but developed a cough with it. Says he had chest pain 20+ years ago. Stress test at that time was abnormal, so he underwent heart cath. Patient states heart cath was normal. No recent echo on file. He has had a few episodes of near-syncope. C/o chest pain, SOB w/ very minimal exertion. Does awaken during the night sometimes with palpitations. Smokes 20+ small cigars daily, no cigarettes. Patient denies any previous history of CVA, PVD, DM, HTN, Depressed LVEF, and CAD. Stress test with fixed perfusion defect in inferior portion. ROS 10 point ROS is performed and is negative unless otherwise specified in HPI Past Medical History He has a past medical history of Abnormal ECG, Crohn's colitis (CMS/HCC), and Hypertension. Surgical History He has a past surgical history that includes Hand surgery; Kidney stone surgery; and Cardiac catheterization. Social History He reports that he has been smoking cigars. He has never used smokeless tobacco. He reports that he does not currently use alcohol. No history on file for drug use. Family History Family History Problem Relation Name Age of Onset Diabetes Mother Coronary artery disease Mother Other (CABG) Mother Diabetes Father Medications Current Outpatient Medications on File Prior to Visit Medication Sig Dispense Refill aspirin 81 mg EC tablet Take 81 mg by mouth in the morning. irbesartan (Avapro) 150 mg tablet Take 150 mg by mouth in the morning. metoprolol tartrate (Lopressor) 50 mg tablet Take 50 mg by mouth two times daily. No current facility-administered medications on file prior to visit. Allergies Lisinopril Physical Exam VITAL SIGNS: BP (!) 188/108 (BP Location: Left arm, Patient Position: Sitting) Pulse 63 Ht 1.803 m (5' 11 ) Wt 106 kg (234 lb) SpO2 94% BMI 32.64 kg/m??? Constitutional: Well developed, Well nourished, No acute distress, Non-toxic appearance. HENT: Normocephalic, Atraumatic, Bilateral external ears have normal appearance, Nose appears normal, nares are patent. Eyes: PERRLA, EOMI, Conjunctiva normal, No discharge. Neck: Normal range of motion, No tenderness, Supple, No stridor. No cervical lymphadenopathy noted. Cardiovascular: Normal heart rate, Normal rhythm, No murmurs, No rubs, No gallops. Thorax & Lungs: Normal breath sounds, No respiratory distress, No wheezing, No chest tenderness to palpation. Abdomen: Bowel sounds normal, Soft, Nontender, No masses, No pulsatile masses. Skin: Warm, Dry, No erythema, No rash. Back: No tenderness, No CVA tenderness. Extremities: Intact distal pulses, No edema, No tenderness, No cyanosis, No clubbing. Musculoskeletal: Grossly normal strength in extremities Neurologic: Alert & oriented x 3, no gross focal neurological deficits Psychiatric: Affect normal, Judgment normal, Mood normal. EKG results: No results found for this or any previous visit (from the past 4464 hour(s)). Echo results: No echocardiogram results found for the past 12 months Radiology: No image results found. Assessment/Plan: Raphael Ornelas is a 59 y.o. male with Abnormal stress test Essential hypertension Angina pectoris, unstable ([facility]) Diagnoses and all orders for this visit: Essential hypertension - irbesartan (Avapro) 300 mg tablet; Take 1 tablet (300 mg) by mouth once daily as directed. - carvedilol (Coreg) 12.5 mg tablet; Take 1 tablet (12.5 mg) by mouth with breakfast and with evening meal. STOP METOPROLOL Discussed that due to significantly abnormal BP, patient should go to ER. He states that this Bp is significantly better than usual. He will start coreg today and will monitor Bp. He will seek medical attention if not better controlled. Given fixed defect and symptoms of unstable angina, recommend proceeding with coronary angiography with possible revascularization Procedure was explained to patient at length and in detail. Risks, benefits, and alternatives were discussed. Patient is informed that risks of this invasive procedure include, but are not limited to, bleeding, hematoma, kidney injury, CVA, arrythmia requiring defibrillation, need for emergent open heart surgery, and . Patient understands these risks and wishes to proceed. Continue aspirin and statin for presumed CAD Emphasized importance of smoking cessation. He voices understanding. Optimize medical management Aggressive risk factor modification Plan of care discussed with patient. All questions were answered. Patient voices understanding and is agreeable with current plan. Patient (more content not included)... Normal [facility] Office Visiton 09-23-2024 Follow-up visit [id number] Hal Ornelas 1965 M Date Provider Department Center 09/23/2024 Gus-CRISTOBAL BAXTER MANUEL Cherry Family History Problem Relation Age of Onset Diabetes Mother Coronary artery disease Mother Other Mother Diabetes Father Family Status - Relation Status Age at Mother Father Level of Service:94615 CT OFFICE/OUTPATIENT NEW MODERATE MDM 45 MINUTES Normal [facility] Orders Onlyon 09-23-2024 Orders Only [id number] Hal Ornelas 1965 M Date Provider Department Center 09/23/2024 895-NASIMA SALDANA MANUEL Cherry Family History Problem Relation Age of Onset Diabetes Mother Coronary artery disease Mother Other Mother Diabetes Father Family Status - Relation Status Age at Mother Father Normal [facility] Coding Summary.on 03-13-2019 Coding Summary. CODING DATE: 03/13/2019 [facility] STATUS: Home (Routine DC) PAYOR: [facility] ADMIT DX: REASON FOR VISIT DX: M65.4 [...] CphT Date Saved: 03/13/2019 08:43 am Normal [facility] Uric Acidon 03-07-2019 Urate mass conc 8.5 mg/dL High 2.2-7.4 [facility] Comment on above: Performed By: #### 2 [id number] #### [facility] [address] [place] [address] Vital Signs Date Time Vital Sign Value Performing Clinician Nurisi jori 04-27-2025 13:30-0400 Body height 180.34 cm Robert Domingo MD Work Phone: [facility] 04-27-2025 13:30-0400 Body mass index (BMI) [Ratio] 32.1 kg/m2 Robert Domingo MD Work Phone: [facility] 04-27-2025 13:30-0400 Body weight 104.32 kg Robert Domingo MD Work Phone: [facility] 04-18-2025 10:010400 Body height 180.34 cm Robert Domingo MD Work Phone: [facility] 04-18-2025 10:01-0400 Body mass index (BMI) [Ratio] 32.1 kg/m2 Robert Domingo MD Work Phone: [facility] 04-18-2025 10:010400 Body temperature 98.4 [degF] Robert Domingo MD Work Phone: [facility] 04-18-2025 10:01-0400 Body weight 104.32 kg Robert Domingo MD Work Phone: [facility] 04-18-2025 10:01-0400 Diastolic blood pressure 71 mm[Hg] Robert Domingo MD Work Phone: [facility] 04-18-2025 10:01-0400 Heart rate 77 /min Robert Domingo MD Work Phone: [facility] 04-18-2025 10:01-0400 Respiratory rate 16 /min Robert Domingo MD Work Phone: [facility] 04-18-2025 10:01-0400 SaO2% (BldA) [Mass fraction] 97 % Robert Domingo MD Work Phone: [facility] 04-18-2025 10:01-0400 Systolic blood pressure 111 mm[Hg] Robert Domingo MD Work Phone: [facility] 12-26-2024 15:20-0500 Body height 180.34 cm Robert Domingo MD Work Phone: [facility] 12-26-2024 15:20-0500 Body mass index (BMI) [Ratio] 33.2 kg/m2 Robert Domingo MD Work Phone: [facility] 12-26-2024 15:20-0500 Body temperature 98.6 [degF] Robert Domingo MD Work Phone: [facility] 12-26-2024 15:20-0500 Body weight 107.95 kg Robert Domingo MD Work Phone: [facility] 12-26-2024 15:20-0500 Diastolic blood pressure 76 mm[Hg] Robert Domingo MD Work Phone: [facility] 12-26-2024 15:20-0500 Heart rate 80 /min Robert Domingo MD Work Phone: [facility] 12-26-2024 15:20-0500 Respiratory rate 16 /min Robert Domingo MD Work Phone: [facility] 12-26-2024 15:20-0500 SaO2% (BldA) [Mass fraction] 96 % Robert Domingo MD Work Phone: [facility] 12-26-2024 15:20-0500 Systolic blood pressure 132 mm[Hg] Robert Domingo MD Work Phone: [facility] 10-21-2024 09:50-0500 Diastolic blood pressure 90 mm[Hg] Robert Domingo MD Work Phone: [facility] 10-21-2024 09:50-0500 Heart rate 65 /min Robert Domingo MD Work Phone: [facility] 10-21-2024 09:50-0500 Respiratory rate 16 /min Robert Domingo MD Work Phone: [facility] 10-21-2024 09:50-0500 SaO2% (BldA) [Mass fraction] 96 % Robert Domingo MD Work Phone: [facility] 10-21-2024 09:50-0500 Systolic blood pressure 159 mm[Hg] Robert Domingo MD Work Phone: [facility] 10-21-2024 08:25-0500 Body height 180.34 cm Robert Domingo MD Work Phone: [facility] 10-21-2024 08:25-0500 Body weight 104 kg Robert Domingo MD Work Phone: [facility] Encounters Encounter Date Encounter Type Care Provider Facility Start: 04-27-2025 End: 04-27-2025 ambulatory Robert Doimngo MD Work Phone: [facility] Work Phone: Start: 04-27-2025 End: 04-27-2025 Patient encounter procedure Song Gannon MD -[facility] Work Phone: Start: 04-18-2025 End: 04-18-2025 Patient encounter procedure Mirtha MONTILLA -[facility] Work Phone: Start: 03-20-2025 End: 03-20-2025 ambulatory [facility] Start: 12-26-2024 End: 12-26-2024 ambulatory Robert Domingo MD Work Phone: [facility] Work Phone: Start: 12-26-2024 End: 12-26-2024 Patient encounter procedure Robert Domingo MD Work Phone: [facility] Work Phone: Start: 11-11-2024 End: 11-11-2024 ambulatory [facility] Start: 10-21-2024 Non-patient / Non-visit Raji Domingo MD Work Phone: [facility] Work Phone: Start: 10-21-2024 End: 10-21-2024 Admission to same day surgery center Robert Domingo MD Work Phone: [facility] Work Phone: Start: 10-21-2024 End: 10-21-2024 ambulatory Robert Domingo Facility:[facility] Start: 10-03-2024 End: 10-03-2024 ambulatory [facility] Start: 09-23-2024 End: 09-23-2024 ambulatory [facility] Start: 03-07-2019 End: 03-08-2019 Patient encounter procedure Jose Hieuphilipp Facility:[facility] Procedures Date Procedure Procedure Detail Performing Clinician Start: 10-21-2024 Colonoscopy Robert reza MD Work Phone: Plan of Treatment Date Care Activity Detail Author Start: 10-21-2024 [facility] Patient Education [facility] Work Phone: Payers Date Payer Category Payer Self-pay 2023 Unknown [id number] 2019 Unknown [id number] 1965 Unknown [id number] Unknown [id number] Social History Date Type Detail Facility Start: 12-26-2024 End: 12-26-2024 Tobacco smoking status NHIS Ex-smoker (finding) [facility] Start: 12-26-2024 Sex Male (finding) [facility] Start: 1965 Sex Assigned At Male [facility] Goals Date Patient Goal Desired Activity /State Evaluation note 04-18-2025 Note Date & Type Note Facility 04-18-2025 Evaluation note Diagnosis Onset Date Resolution Gout flare acute April 18 9:44am Rectal bleeding acute April 1:25pm [facility] Work Phone: Progress note 03-20-2025 Note Date & Type Note Facility 03-20-2025 Note [place] Cardiology - [facility] Subjective Raphael Ornelas is a 59 y.o. year old adult patient being seen for 5 month follow up.Patient states for the most part he feel pretty good. Patient states he quite smoking a little over 3 months ago. Patient complains of dyspnea with exertion, leg swelling, some dizziness, fatigue, numbness bottom of his feet, fast heart rate at times. Patient denies chest pain. Patient Active Problem List Diagnosis Current smoker Abnormal stress test Family History Problem Relation Name Age of Onset Diabetes Mother Coronary artery disease Mother Other (CABG) Mother Diabetes Father Social History Tobacco Use Smoking status: Former Types: Cigars Passive exposure: Past Smokeless tobacco: Never Tobacco comments: Nicotine pouches Substance Use Topics Alcohol use: Not Currently Drug use: Never HPI Raphael is seen in follow-up. This is the first time I am meeting him. He used to follow with Dr. Marco Antonio Aguilar. He is a 59-year-old man who was previously evaluated due to abnormal ECG and abnormal stress test that showed fixed inferior defect. Cardiac catheterization showed nonobstructive coronary artery disease with around 50% stenosis in the LAD. He was recommended medical management. Additional medical history includes hypertension and Crohn's. Today he reports that he has been free from chest pain. He has shortness of breath on exertion NYHA class II symptoms and lower extremity edema. He feels occasional palpitations. He has no syncope, his exercise tolerance is acceptable. He has a lot of questions regarding his medications. He never took the statin therapy as he is afraid of side effects and has a prior bad experience with statins and a family member. In addition he has been having erectile dysfunction with the blood pressure medications and is asking for them to be changed. Review of Systems Constitutional: Positive for malaise/fatigue. Cardiovascular: Positive for dyspnea on exertion, irregular heartbeat and leg swelling. Musculoskeletal: Positive for joint pain. Neurological: Positive for dizziness. Objective Visit Vitals BP 116/75 (BP Location: Right arm, Patient Position: Sitting) Pulse 72 Ht 1.803 m (5' 11 ) Wt 105 kg (231 lb) SpO2 96% BMI 32.22 kg/m??? Smoking Status Former BSA 2.29 m??? Physical Exam Constitutional: Appearance: He is well-developed. He is not ill-appearing. HENT: Head: Normocephalic and atraumatic. Nose: Nose normal. Eyes: General: No scleral icterus. Pupils: Pupils are equal, round, and reactive to light. Neck: Thyroid: No thyromegaly. Vascular: No JVD. Cardiovascular: Rate and Rhythm: Normal rate and regular rhythm. Pulses: Radial pulses are 2+ on the right side and 2+ on the left side. Heart sounds: Normal heart sounds. No murmur heard. No friction rub. No gallop. Pulmonary: Effort: Pulmonary effort is normal. No respiratory distress. Breath sounds: Normal breath sounds. No wheezing or rales. Chest: Chest wall: No tenderness. Abdominal: General: Bowel sounds are normal. There is no distension. Palpations: Abdomen is soft. Tenderness: There is no abdominal tenderness. Musculoskeletal: General: No swelling. Cervical back: Neck supple. Skin: General: Skin is warm and dry. Neurological: General: No focal deficit present. Mental Status: He is alert and oriented to person, place, and time. Psychiatric: Mood and Affect: Mood normal. Behavior: Behavior is cooperative. Judgment: Judgment normal. Allergies Allergies Allergen Reactions Lisinopril Cough Medications Current Outpatient Medications: aspirin 81 mg EC tablet, Take 81 mg by mouth in the morning., Disp: , Rfl: irbesartan (Avapro) 300 mg tablet, Take 1 tablet (300 mg) by mouth once daily as directed., Disp: 90 tablet, Rfl: 3 meclizine (Antivert) 25 mg tablet, Take 1 tablet by mouth Twice daily at 6am and 6pm., Disp: , Rfl: NIFEdipine XL (Procardia XL) 60 mg 24 hr tablet, Take 1 tablet (60 mg) by mouth in the morning. Do not crush, chew, or split., Disp: 90 tablet, Rfl: 3 albuterol 90 mcg/actuation inhaler, Inhale 1 puff every 4 (four) hours if needed., Disp: , Rfl: carvedilol (Coreg) 3.125 mg tablet, Take 1 tablet (3.125 mg) by mouth with breakfast and with evening meal., Disp: 180 tablet, Rfl: 3 hydroCHLOROthiazide (HYDRODiuril) 25 mg tablet, Take 1 tablet (25 mg) by mouth in the morning., Disp: 90 tablet, Rfl: 3 pravastatin (Pravachol) 10 mg tablet, Take 1 tablet (10 mg) by mouth in the morning., Disp: 90 tablet, Rfl: 3 Recent Labs Admission on 10/03/2024, Discharged on 10/03/2024 Component Date Value Ventricular Rate 10/03/2024 54 Atrial Rate 10/03/[address] Interval 10/03/2024 120 QRS DURATION 10/03/2024 144 QT Interval 10/03/2024 492 QTC CALCULATION(BAZETT) 10/03/2024 466 P Etna 10/03/2024 40 R-Etna 10/03/2024 26 T Wave Etna 10/03/2024 (more content not included)... [facility] Progress note 11-11-2024 Note Date & Type Note Facility 11-11-2024 Note Cardiology Clinic No te HPI: Raphael Ornelas is a 59 y.o. adult who has a past medical history of Abnormal ECG, Crohn's colitis (CMS/HCC), and Hypertension. that is referred to Cardiology clinic for evaluation of abnormal stress test. Patient here for follow up heart cath performed on 10/03/2024. He was started on atorvastatin but he did not start it. States he does not wish to take it. Denies chest pain and recent palpitations. Says BP at home has been running high. No chest pain. No shortness of breath. No edema, orthopnea, or PND. Cardiology ROS: 10 point ROS is performed and is negative unless otherwise specified in HPI. Past Medical History He has a past medical history of Abnormal ECG, Crohn's colitis (CMS/HCC), and Hypertension. Surgical History He has a past surgical history that includes Hand surgery; Kidney stone surgery; and Cardiac catheterization. Social History He reports that he has been smoking cigars. He has never used smokeless tobacco. He reports that he does not currently use alcohol. No history on file for drug use. Family History Family History Problem Relation Name Age of Onset Diabetes Mother Coronary artery disease Mother Other (CABG) Mother Diabetes Father Medications Current Outpatient Medications on File Prior to Visit Medication Sig Dispense Refill aspirin 81 mg EC tablet Take 81 mg by mouth in the morning. carvedilol (Coreg) 12.5 mg tablet Take 1 tablet (12.5 mg) by mouth with breakfast and with evening meal. STOP METOPROLOL 180 tablet 3 irbesartan (Avapro) 300 mg tablet Take 1 tablet (300 mg) by mouth once daily as directed. 90 tablet 3 meclizine (Antivert) 25 mg tablet Take 1 tablet by mouth Twice daily at 6am and 6pm. atorvastatin (Lipitor) 40 mg tablet Take 1 tablet (40 mg) by mouth in the morning. 30 tablet 0 No current facility-administered medications on file prior to visit. Allergies Lisinopril Physical Exam VITAL SIGNS: BP (!) 176/102 (BP Location: Left arm, Patient Position: Sitting) Pulse 66 Ht 1.803 m (5' 11 ) Wt 105 kg (232 lb) SpO2 96% BMI 32.36 kg/m??? Constitutional: Well developed, Well nourished, No acute distress, Non-toxic appearance. HENT: Normocephalic, Atraumatic, Bilateral external ears have normal appearance, Nose appears normal, nares are patent. Eyes: PERRLA, EOMI, Conjunctiva normal, No discharge. Neck: Normal range of motion, No tenderness, Supple, No stridor. No cervical lymphadenopathy noted. Cardiovascular: Normal heart rate, Normal rhythm, No murmurs, No rubs, No gallops. Thorax & Lungs: Normal breath sounds, No respiratory distress, No wheezing, No chest tenderness to palpation. Abdomen: Bowel sounds normal, Soft, Nontender, No masses, No pulsatile masses. Skin: Warm, Dry, No erythema, No rash. Back: No tenderness, No CVA tenderness. Extremities: Intact distal pulses, No edema, No tenderness, No cyanosis, No clubbing. Musculoskeletal: Grossly normal strength in extremities Neurologic: Alert & oriented x 3, no gross focal neurological deficits Psychiatric: Affect normal, Judgment normal, Mood normal. EKG results: Encounter Date: 10/03/24 Electrocardiogram, 12-lead Result Value Ventricular Rate [address] Interval 120 QRS DURATION 144 QT Interval 492 QTC CALCULATION(BAZETT) 466 P Etna 40 R-Etna 26 T Wave Etna -8 Impression Sinus bradycardia Right bundle branch block Abnormal ECG No previous ECGs available Confirmed by Terra SILVERMAN, RK Almaguer ([id number]) on 10/03/2024 2:35:39 PM Echo results: No echocardiogram results found for the past 12 months Radiology: Cardiac catheterization Cardiac Cath Report 10/03/2024 Performing Physicians: -Cristobal Baxter MD Assistants: Dr Idalia Birch. Procedures Performed: -Bilateral selective coronary angiography -Ultrasound-guided vascular access -Conscious sedation Final Impressions: -Nonobstructive CAD Recommendations: -Aspirin 81 mg daily and high intensity statin therapy -Optimization of medical management -Aggressive risk factor modification -Follow up with Cardiology as scheduled Procedure In Detail: After risks, benefits, and alternatives were explained to patient, written informed consent was obtained. The patient was prepped and draped in usual sterile fashion. Using 1% lidocaine solution, local infiltration anesthesia was achieved over the right radial artery. Using a micropuncture kit, access to this artery was obtained. A 6 FR x 11 cm sheath was then placed over a wire. Bilateral selective coronary angiography was then performed using JR5 and JL3.5 diagnostic catheters. After reviewing the images, it was elected to conclude the procedure. All wires and catheters were removed. The patient tolerated the procedure well. There were no complications. The patient will be moved to recovery in stable condition. APPROACH: Right Radial Findings: HEMODYNAMICS: AO: 153/90 (more content not included)... [facility] Clinical Note 10-03-2024 Note Date & Type Note Facility 10-03-2024 Note Patient: Raphael philippe Procedure Information Date/Time: 10/03/24929 Procedure: Coronary angiography (Left) - PC APPROVED Location: [facility] 3 / [facility] (Cath) Providers: Cristobal Baxter MD Clinical information reviewed: Allergies Meds Physical Exam Airway Mallampati: II TM distance: <3 FB Cardiovascular Rhythm: regular Rate: normal Dental Pulmonary Abdominal Anesthesia Plan ASA 3 other (Conscious ) Anesthetic plan and risks discussed with patient. Use of blood products discussed with patient who consented to blood products. Plan discussed with attending. Additional Equipment Requests [facility] Progress note 09-23-2024 Note Date & Type Note Facility 09-23-2024 Note Cardiology Clinic No te Chief Complaint: New patient for abnormal stress test HPI: Raphael Ornelas is a 59 y.o. male who has a past medical history of Abnormal ECG, Crohn's colitis (CMS/HCC), and Hypertension. that is referred to Cardiology clinic for evaluation of abnormal stress test. He was recently started on metoprolol and irbesartan. He's taken lisinopril in the past but developed a cough with it. Says he had chest pain 20+ years ago. Stress test at that time was abnormal, so he underwent heart cath. Patient states heart cath was normal. No recent echo on file. He has had a few episodes of near-syncope. C/o chest pain, SOB w/ very minimal exertion. Does awaken during the night sometimes with palpitations. Smokes 20+ small cigars daily, no cigarettes. Patient denies any previous history of CVA, PVD, DM, HTN, Depressed LVEF, and CAD. Stress test with fixed perfusion defect in inferior portion. ROS 10 point ROS is performed and is negative unless otherwise specified in HPI Past Medical History He has a past medical history of Abnormal ECG, Crohn's colitis (CMS/HCC), and Hypertension. Surgical History He has a past surgical history that includes Hand surgery; Kidney stone surgery; and Cardiac catheterization. Social History He reports that he has been smoking cigars. He has never used smokeless tobacco. He reports that he does not currently use alcohol. No history on file for drug use. Family History Family History Problem Relation Name Age of Onset Diabetes Mother Coronary artery disease Mother Other (CABG) Mother Diabetes Father Medications Current Outpatient Medications on File Prior to Visit Medication Sig Dispense Refill aspirin 81 mg EC tablet Take 81 mg by mouth in the morning. irbesartan (Avapro) 150 mg tablet Take 150 mg by mouth in the morning. metoprolol tartrate (Lopressor) 50 mg tablet Take 50 mg by mouth two times daily. No current facility-administered medications on file prior to visit. Allergies Lisinopril Physical Exam VITAL SIGNS: BP (!) 188/108 (BP Location: Left arm, Patient Position: Sitting) Pulse 63 Ht 1.803 m (5' 11 ) Wt 106 kg (234 lb) SpO2 94% BMI 32.64 kg/m??? Constitutional: Well developed, Well nourished, No acute distress, Non-toxic appearance. HENT: Normocephalic, Atraumatic, Bilateral external ears have normal appearance, Nose appears normal, nares are patent. Eyes: PERRLA, EOMI, Conjunctiva normal, No discharge. Neck: Normal range of motion, No tenderness, Supple, No stridor. No cervical lymphadenopathy noted. Cardiovascular: Normal heart rate, Normal rhythm, No murmurs, No rubs, No gallops. Thorax & Lungs: Normal breath sounds, No respiratory distress, No wheezing, No chest tenderness to palpation. Abdomen: Bowel sounds normal, Soft, Nontender, No masses, No pulsatile masses. Skin: Warm, Dry, No erythema, No rash. Back: No tenderness, No CVA tenderness. Extremities: Intact distal pulses, No edema, No tenderness, No cyanosis, No clubbing. Musculoskeletal: Grossly normal strength in extremities Neurologic: Alert & oriented x 3, no gross focal neurological deficits Psychiatric: Affect normal, Judgment normal, Mood normal. EKG results: No results found for this or any previous visit (from the past 4464 hour(s)). Echo results: No echocardiogram results found for the past 12 months Radiology: No image results found. Assessment/Plan: Raphael Ornelas is a 59 y.o. male with Abnormal stress test Essential hypertension Angina pectoris, unstable ([facility]) Diagnoses and all orders for this visit: Essential hypertension - irbesartan (Avapro) 300 mg tablet; Take 1 tablet (300 mg) by mouth once daily as directed. - carvedilol (Coreg) 12.5 mg tablet; Take 1 tablet (12.5 mg) by mouth with breakfast and with evening meal. STOP METOPROLOL Discussed that due to significantly abnormal BP, patient should go to ER. He states that this Bp is significantly better than usual. He will start coreg today and will monitor Bp. He will seek medical attention if not better controlled. Given fixed defect and symptoms of unstable angina, recommend proceeding with coronary angiography with possible revascularization Procedure was explained to patient at length and in detail. Risks, benefits, and alternatives were discussed. Patient is informed that risks of this invasive procedure include, but are not limited to, bleeding, hematoma, kidney injury, CVA, arrythmia requiring defibrillation, need for emergent open heart surgery, and . Patient understands these risks and wishes to proceed. Continue aspirin and statin for presumed CAD Emphasized importance of smoking cessation. He voices understanding. Optimize medical management Aggressive risk factor modification Plan of care discussed with patient. All questions were answered. Patient voices understanding and is agreeable with current plan. Patient (more content not included)... [facility] Evaluation note Note Date & Type Note Facility Evaluation note Diagnosis Onset Date Resolution Respiratory infection acute Feb ruary 2024 3:13pm [facility] Work Phone: Reason for referral (narrative) Note Date & Type Note Facility Reason for referral (narrative) No reason for referral information available [facility] Work Phone: Summary Purpose Family History Relationship Condition Age at Onset Recorded Date/T nell father Hypertension Unknown Diabetes mellitus Unknown family member Unknown mother Hypertension Unknown Advance Directives Advance Directive Response Recorded Date/ Time Advance Directives No September 12:11pm Advance Directive Response Recorded Date/ Time Advance Directives No September 1:11pm Chief Complaint and Reason for Visit Chief Complaint Admit Date hx of chron's disease October 21 7:59am hx of chron's disease October 21 9:05am chest congestion, cough December 26, 2 025 3:13pm Reason for Visit Admit Date Respiratory infection December 26 3:13pm Chief Complaint Admit Date left pinky finger swelling redness April 18, 2025 9:44am rectal bleeding April 27, 2025 1:25 pm Reason for Visit Admit Date Gout flare April 18, 2025 9:44 am Rectal bleeding April 27, 2025 1:25 pm Additional Source Comments (unrecognized sect ion and content) No Status Records FoundNo Status Records FoundNo Status Records Found INFORMATION SOURCE (unrecogn ized section and content) DATE CREATED [facility] DATE CREATED AUTHOR AUTHOR'S ORGANIZ ATION 11/13/2024 [facility] DATE CREATED AUTHOR AUTHOR'S ORGANIZ ATION 03/20/2025 [facility] Care Teams (unrecognized sec tion and content) Team Status: Active Member Role Status Dates Robert Domingo MD Primary Care Provider Active Team Status: Inactive Member Role Status Dates Song Gannon MD Attending Provider Active S tart: October 21, 2024 End: October 21, 2024 Robert Domingo MD Primary Care Provider Active Start: October 21, 2024 End: October 21, 2024 Team Status: Active Member Role Status Dates Song Gannon MD Attending Provider, Other Provider Active Start: October 21, 2024 Robert Domingo MD Primary Care Provider Active Start: October 21, 2024 Team Status: Inactive Member Role Status Dates Robert Domingo MD Primary Care Provider Active Start: December 26, 2024 End: December 26, 2024 Patricia Martini APRN Attending Provider Active S tart: December 26, 2024 End: December 26, 2024 Team Status: Inactive Member Role Status Dates Robert Domingo MD Primary Care Provider Active Start: April 18, 2025 End: April 18, 2025 Mirtha Allen PA-C Attending Provider Active St art: April 18, 2025 End: April 18, 2025 Team Status: Inactive Member Role Status Dates Robert Domingo MD Primary Care Provider Active Start: April 27, 2025 End: April 27, 2025 Song Gannon MD Attending Provider Active S tart: April 27, 2025 End: April 27, 2025 Goals (unrecognized section and content) Goals may be documented in a n alternate section FOR RECORDS PERTAINING TO PATIENTS WHO ARE [...] BE BASED ON THE PRIMARY CLINICAL RECORDS. [facility]. provides no warranty or guarantee of the accuracy or completeness of information in this document.
[2025-05-26 09:31] LABS: Alanine Aminotransferase 22 U/L (16-63); Albumin Globulin Ratio 0.8; Albumin Level 3.4 g/dL (3.4-5.0); Alkaline Phosphatase 54 U/L (46-116); Anion Gap 14.5; Aspartate Amino Transferase 14 U/L (15-37); Blood Urea Nitrogen 35.0 mg/dL (7.0-18.0); Calcium 9.1 mg/dL (8.5-10.1); Carbon Dioxide 25.1 mmol/L (21.0-32.0); Chloride 105 mmol/L (98-107); Cholesterol 133 mg/dL (<=200); Estimated GFR (African America >60 (>=60 mL/min/1.73m^2); Estimated GFR (Non-African Ame 55 (>=60 mL/min/1.73m^2); Globulin 4.1 g/dL; Glucose 117 mg/dL (74-106); HDL Cholesterol 46 mg/dL (40-60); Potassium 3.6 mmol/L (3.5-5.1); Sodium 141 mmol/L (136-145); Total Protein 7.5 g/dL (6.4-8.2); Triglycerides 96 mg/dL (<=150); VLDL CHOLESTEROL 19.2 mg/dL
== END 2025-05-26 07:55 | disposition home or self-care (01) ==
LOC: LAB 07:56
PROVIDERS: PCP Family Medicine; Visit Provider Internal Medicine Interventional Cardiology
DX: I25.10 Atherosclerotic heart disease of native coronary artery without angina pectoris (principal); I10 Essential (primary) hypertension
CPT/HCPCS: 36415; 80048; 80061; 80076

== ENCOUNTER 2025-06-08 07:36 | Outpatient (OUT) | payer OTHER, SELFPAY ==
--- OUTSIDE RECORDS SUMMARY | 2018-09-20 08:13 | XMS_ITS | Continuity of Care Document ---
Author Organization [facility] Address [address] [place] [address] Phone Care Team Providers Care Commodity Manager Name Role Phone Umesh Juarez Unavailable Unavailable Advance Directives Directive Yes / No Effective Date File Name No Information Encounters Encounter Description Practice Location Reason(s) For Visit Diagnoses Date Provider Providers Copied on Encounter [facility], [address] [place] [address], [id number], [place] tel:[phone] [employer] No Information Liliana Kirby. [address] [place], [place], [id number], [place]. tel:[phone] [facility], [address] [place], [place], [id number], [place] tel:[phone] [employer] Encounter for screening for respiratory tuberculosis Liliana Kirby. [address] [place] [address], [id number], [place]. tel:[phone] Family History Family Member Type Diagnosis Age At Onset No Information Payers Payer name Insurance type Covered libertarian ID Authoriza tion(s) No Information Social History [...]
--- OUTSIDE RECORDS SUMMARY | 2025-05-24 10:49 | XMS_ITS ---
Author Organization The [facility] in [place] Address [address] [place] [address] Care Team Providers Care Director Of Collections And Archives Name Role Phone Florentin Domingo Primary Care Provider [phone] Medications Medication SIG (Take, Route, Fr equency, Duration) Notes Start Date End Date Status predniSONE 20 MG 3 tablets Orally Onc e a day for 5 days 05/24/2025 Active Encounters Encounter Location Date Provider Diagnosis [facility] [address] [place] [address] 05/24/2025 Florentin Domingo Plan Of Treatment Medication Medication Name Sig Start Date Stop Date Notes predniSONE 20 MG 3 tablets Orally Once a day for 5 days Progress Notes * Raphael JUAREZDOB:1965 (59 yo M)Acc No.[id number]:05/24/2025 Patient: Raphael OJEDA :1965 A ge:59 Y S ex:Male Address:[address] [place] [address] * Refills Start predniSONE Tablet, 20 MG, Orally, 15 Tablet, 3 tablets, Once a day, 5 days * true * Date: Generated for Cornel nova/Mauro/eTransmitting on: 0 06/08/2025 07:38 AM EDT
--- OUTSIDE RECORDS SUMMARY | 2025-05-28 13:56 | XMS_ITS ---
Author Organization [facility] in [place] Address [address] [place] [address] Care Team Providers Care Jewel Lathe Operator Name Role Phone Florentin Domingo Primary Care Provider REASON FOR VISIT review labs Medications Medication SIG (Take, Route, Frequency, Duration) Notes Start Date End Date Status NIFEdipine ER 60 MG 1 tablet on an empty stomach Orally Once a day for 30 days 05/29/2025 Active Aspirin Adult Low Dose 81 MG 1 tablet Or ally Once a day for 30 days 05/29/2025 Active Coreg 3.125 MG 1 tablet with food Orally Twice a day for 30 days 05/29/2025 Active hydroCHLOROthiazide 25 MG 1 tablet in th e morning Orally every other days for 30 days 05/29/2025 Active Albuterol Sulfate HFA 108 (9 0 Base) MCG/ACT 1 puff as needed Inhalation every 4 hrs 05/29/2025 Active Irbesartan 300 MG 1 tablet Orally Once a day for 30 days Active Pravastatin Sodium 10 MG 1 tablets Orall y Once a day for 30 days 05/29/2025 Active Encounters Encounter Location Date Provider Diagnosis [facility] [address] [place] [address] 05/28/2025 Florentin Domingo Plan Of Treatment Medication Medication Name Sig Start Date Stop Date Notes NIFEdipine ER 60 MG 1 tablet on an empty stomach Orally Once a day for 30 days 05/29/2025 Aspirin Adult Low Dose 81 MG 1 tablet Or ally Once a day for 30 days 05/29/2025 Coreg 3.125 MG 1 tablet with food Orally Twice a day for 30 days 05/29/2025 hydroCHLOROthiazide 25 MG 1 tablet in th e morning Orally every other days for 30 days 05/29/2025 Albuterol Sulfate HFA 108 (9 0 Base) MCG/ACT 1 puff as needed Inhalation every 4 hrs 05/29/2025 Irbesartan 300 MG 1 tablet Orally Once a day for 30 days Pravastatin Sodium 10 MG 1 tablets Orall y Once a day for 30 days 05/29/2025 Progress Notes * NANCY RaphaelDOB:1965 ( 60 yo M)Acc No.[id number]:05/28/2025 Patient: Raphael DICKINSON :1965 A ge:60 Y S ex:Male Address:[address] [place] [id number] * Refills Start Aspirin Adult Low Dose Tablet Delayed Release, 81 MG, Orally, 30, 1 tablet, Once a day, 30 days, Refills=11 Start Coreg Tablet, 3.125 MG, Orally, 60, 1 tablet with food, Twice a day, 30 days Start hydroCHLOROthiazide Tablet, 25 MG, Orally, 1 tablet in the morning, every other days, 30 days Start Pravastatin Sodium Tablet, 10 MG, Orally, 30 Tablet, 1 tablets, Once a day, 30 days Refill Irbesartan Tablet, 300 MG, Orally, 30, 1 tablet, Once a day, 30 days, Refills=11 Start Albuterol Sulfate HFA Aerosol Solution, 108 (90 Base) MCG/ACT, Inhalation, 1 puff as needed, every 4 hrs Start NIFEdipine ER Tablet Extended Release 24 Hour, 60 MG, Orally, 30, 1 tablet on an empty stomach, Once a day, 30 days * true * Date: Generated for Cornel nova/Mauro/Ivonneitting on: 0 06/08/2025 07:38 AM EDT
--- OUTSIDE RECORDS SUMMARY | 2025-06-07 04:45 | XMS_ITS ---
Author Organization [facility] in [place] Address [address] [place] [address] Care Team Providers Care Syrup Maker Cook Name Role Phone Florentin Domingo Primary Care Provider Allergies No Known Allergies Reason For Referral Diagnosis 1 Mass (R22.9) Referral Organization [facility] Medicine Referring Provider First Name Florentin Referring Provider Last Name Chayo Referring Provider Speciality Family Med gabo Referred Provider Benjamin Stuart Referred Provider Specialty General Surg randy Referral Priority Routine REASON FOR VISIT f/u BP, changed HCTZ to every other day last week, Has lumps in arms, involuntary arm movements, numbness in feet Medications Medication SIG (Take, Route, Frequency, Duration) Notes Start Date End Date Status Irbesartan 300 MG 1 tablet Orally Once a day for 30 days Active Meclizine HCl 25 MG TAKE 1 TABLET BY MOUTH EVERY 12 HOURS NEEDED for 30 PRN Active Pravastatin Sodium 10 MG 1 tablets Orall y Once a day for 30 days 05/29/2025 Active hydroCHLOROthiazide 25 MG 1 tablet Orall y every other days for 30 days 05/29/2025 Active Albuterol Sulfate HFA 108 (9 0 Base) MCG/ACT 1 puff as needed Inhalation every 4 hrs PRN 05/29/2025 Active NIFEdipine ER 90 MG 1 tablet on an empty stomach Orally Once a day for 30 days 05/29/2025 Active Aspirin Adult Low Dose 81 MG 1 tablet Or ally Once a day for 30 days 05/29/2025 Active Social History Tobacco Use: Social History [...] interested in quitting? Thinking about q uitting Vital Signs Blood pressure systolic 122 mm Hg 06/07/20 25 Blood pressure diastolic 70 mm Hg 025 Height 71 in 06/07/2025 Weight 225.6 lbs 06/07/2025 BMI 31.46 kg/m2 06/07/2025 Encounters Encounter Location Date Provider Diagnosis [facility] [address] [place] [address] 06/07/2025 Florentin Domingo Hypertension I10 ; Insect bite W57.XXXA ; Mass R22.9 and Fatigue R53.83 Assessments Encounter Date Diagnosis (ICD Code) Assessment Notes Treatment Notes Treatment Clinical Notes Section Notes 06/07/2025 Hypertension (ICD-10 - I10) 06/07/2025 Insect bite (ICD-10 - W57.XXXA) 06/07/2025 Mass (ICD-10 - R22.9) 06/07/2025 Fatigue (ICD-10 - R53.83) Plan Of Treatment Medication Medication Name Sig Start Date Stop Date Notes NIFEdipine ER 90 MG 1 tablet on an empty stomach Orally Once a day for 30 days 05/29/2025 Coreg 3.125 MG 1 tablet with food Orally Twice a day 05/29 Pending Test Test Name Order Date LYME TITER IGG and IGM (SCREEN) 06/07/20 25 RHEUMATOID PANEL 06/07/2025 TESTOSTERONE, TOTAL 06/07/2025 URIC ACID SERUM 06/07/2025 Referrals Referral Date Details 06/07/2025 06/07/2025, Benjamin Stuart Progress Notes * Raphael CRUZDOB:1965 ( 60 yo M)Acc No.[id number]:06/07/2025 UNLOCKED PROGRESS NOTE Progress Note Patient: Raphael DICKINSON Provider: Alysa Domingo ([facility])MD :1965 A ge:60 Y S ex:Male Date:06/07/2025 Address:[address] [place], [place] [id number] Check In:08:30 AM ESTCheck O ut:09:24 AM EST Subjective: * Chief Complaints: * 1 . f/u BP, changed HCTZ to every other day last week. 2. Has lumps in arms, involuntary arm movements. 3. Numbness in feet. * HPI: D epression Screening: PHQ-2 (2015 Edition) L ittle interest or pleasure in doing things??More than half the days F eeling down, depressed, or hopeless? N ot at all T otal Score 2 Lefuper arm iwnht seval lumps and pain in uper latearl shoiulder getting some inviluntary movement - numbness in fees and cramping laterallyu. D epression Screening: PHQ-9 L ittle interest or pleasure in doing things?More than half the days F eeling down, depressed, or hopeless N ot at all T rouble falling or staying asleep, or sleeping too much N early every day F eeling tired or having little energy M ore than half the days P oor appetite or overeating S everal days F eeling bad about yourself or that you are a failure, or have let yourself or your family down N ot at all T rouble concentrating on things, such as reading the newspaper or watching television N ot at all M oving or speaking so slowly that other people could have noticed; or the opposite, being so fidgety or restless that you have been moving around a lot more than usual N ot at all T houghts that you would be better off or of hurting yourself in some way N ot at all T otal Score 8 I nterpretation M ild Depression * ROS: E ENT: hearing changes d enies. v isual changes d enies.?non-healing mouth sores d enies. s wollen glands or neck lumps d enies. h oarseness d enies. s ore throat d enies. d ifficulty swallowing d enies. n ose bleeds d enies. n cristina congestion d enies. e ar ache d enies. e ar discharge?denies. r inging in ears d enies. l ight sensitivity d enies. e ye pain d enies. b lurring d enies. e ye irritation d enies. d ouble vision d enies.?vision loss d enies. G eneral/Constitutional: Sweats: D enies. F atigue d enies. S leep problems d enies. A norexia d enies. M alaise d enies. W eight loss d enies.?Fatigue or Weakness d enies. F ever or Chills d enies. C ardiovascular: Shortness of Breath w/lying flat d enies. L ightheadedness/dizziness d enies. C hest tightness/ heavy pressure d enies. S welling of legs, ankles, or feet d enies. W aking up with shortness of breath d enies. C hest pain denies. P alpitations d enies. W eight gain d enies. R espiratory: Chronic or frequent cough d enies. C oughing up blood?denies. D ifficulty breathing d enies. P roductive cough d enies. S noring?denies. S hortness of breath that awakens from sleep (PND) d enies. C hest pain d enies. S putum production d enies. W heezing d enies. M usculoskeletal: Joint pain d enies. J oint Fluid d enies. B ack pain d enies. K nee pain d enies. N vy pain d enies. J oint Stiffness d enies. M uscle cramps d enies. W eakness of muscles d enies. A rthritis d enies. M uscle aches d enies. P ain in shoulder(s) d enies. S wollen joints d enies. * Medical History: C rohn disease, Hypertension, Vertigo. * Surgical History: L eft Hand Surgery , hx of Seton implanted in Rectum , colonoscopy Dr Stuart 10/21/2024, Heart Cath- no stents 09/2024. * Hospitalization/Major Diagno stic Procedure: D enies Past Hospitalization. * Family History: F ather: alive, skin cancer, diagnosed with Other malignant neoplasm of unspecified site, Diabetes mellitus without mention of complication, type II or unspecified type, not stated as uncontrolled. M other: alive, diagnosed with Diabetes mellitus without mention of complication, type II or unspecified type, not stated as uncontrolled, Chronic kidney disease, unspecified. Hyacinth cerda Grandmother: , stroke, diagnosed with Diabetes mellitus without mention of complication, type II or unspecified type, not stated as uncontrolled. * Social History: T obacco Use: T obacco Use/Smoking P emma is a c urrent smoker W hen did you start smoking? 0 11/02/1988 H ow often do you smoke cigarettes? e very day H ow many cigarettes a day do you smoke? 1 1-20 H ow soon after you wake up do you smoke your first cigarette? 6 -30 minutes A re you interested in quitting? T hinking about quitting * Medications: T aking Albuterol Sulfate HFA 108 (90 Base) MCG/ACT Aerosol Solution 1 puff as needed Inhalation every 4 hrs , Notes to Pharmacist: PRN, Taking Aspirin Adult Low Dose(Aspirin) 81 MG Tablet Delayed Release 1 tablet Orally Once a day , Taking Coreg(Carvedilol) 3.125 MG Tablet 1 tablet with food Orally Twice a day , Taking hydroCHLOROthiazide 25 MG Tablet 1 tablet Orally every other days , Taking Irbesartan 300 MG Tablet 1 tablet Orally Once a day , Taking Meclizine HCl 25 MG Tablet TAKE 1 TABLET BY MOUTH EVERY 12 HOURS NEEDED , Notes to Pharmacist: PRN, Taking NIFEdipine ER 60 MG Tablet Extended Release 24 Hour 1 tablet on an empty stomach Orally Once a day , Taking Pravastatin Sodium 10 MG Tablet 1 tablets Orally Once a day , Discontinued Metoprolol Tartrate 50 MG Tablet 1 tablet with food Orally Twice a day , Discontinued predniSONE 20 MG Tablet 3 tablets Orally Once a day , Medication List reviewed and reconciled with the patient * Allergies: N .K.D.A. Objective: * Vitals: W t:225.6lbs, Ht: 71 in, BP:122/70mm Hg, BMI:31.46Index, Ht-cm: 180.34 cm, Wt-k.33 kg. * Examination: P hysical Exam: GENERAL: w ell developed, well nourished, in no acute distress. HEAD: n ormocephalic/atraumatic. EYES: p upils equal, round and reactive to light, conjunctivae and sclerae normal. EARS: n o deformity or lesion of external ear, canals and TM appear normal bilaterally, TM's intact, not inflamed with normal light reflex, hearing grossly normal to conversational speech. NOSE: n o deformity, discharge, inflammation, or lesions.? MOUTH: m ucous membranes moist, normal oropharynx and posterior pharynx without lesions or exudates, tongue normal, dentition normal. NECK: n vy supple, no masses or palpable cervical nodes, trachea midline, thyroid without nodules, masses, tenderness, or enlargement. CHEST: n o chest wall deformity, no chest wall tenderness.? LUNGS: n ormal respiratory effort and clear to auscultation, no wheezes, rales, or rhonchi, good air exchange. CARDIO: r egular rate and rhythm, normal S1 and S2, nor murmur, rub, or gallop. PULSES: n ormal capillary refill. ABDOMEN: s oft, non-distended, non-tender, no masses. MUSCULOSKELETAL: n o deformity or scoliosis noted, normal range of motion, joints normal, no erythema, edema, effusion, or ecchymosis. EXTREMITY: n o clubbing, cyanosis, edema, or deformity with normal ROM in both upper and lower bilateral extremities. NEUROLOGIC: g rossly normal. SKIN: n o rashes, ulcerations, or suspicious lesions. LYMPH NODES: n o cervical adenopathy, nodes normal. MENTAL STATUS: a lert and oriented x3, normal mood and affect. Assessment: * Assessment: 1. H ypertension - I10 (Primary) 2 . I nsect bite - W57.XXXA ?3. M ass - R22.9 4 . F atigue - R53.83 Plan: * Treatment: 2. I nsect bite L AB: LYME TITER IGG and IGM (SCREEN) 3. M ass Referral To:Benjamin Stuart General Surgery Reason: 4. F atigue L AB: LYME TITER IGG and IGM (SCREEN) L AB: RHEUMATOID PANEL L AB: TESTOSTERONE, TOTAL L AB: URIC ACID SERUM * Preventive Medicine: Screenings/Counseling: B DE ACTION PLAN Above Normal BMI Follow-up D ietary management education, guidance, and counseling * * Electronic signature of Florentin Domingo MD, [phone] on 06/08/2025 at 07:39 AM EDT Sign off status: Pending Visit Status: Marya COMBS (Check Out) * Provider: Alysa Domingo ([facility])MD Date: 0 06/07/2025 Generated for Lydiai ng/Fafaizag/eTransmitting on: 0 06/08/2025 07:39 AM EDT History and Physical Notes * HPI (History of Present Illness) Category Sub-Category Detail Notes Category Not es Depression Screening PHQ-9 Little inte rest or pleasure in doing things: More than half the days Feeling down, depressed, or hopeless: No t at all Trouble falling or staying asleep, or sl eeping too much: Nearly every day Feeling tired or having little energy: M ore than half the days Poor appetite or overeating: Several day s Feeling bad about yourself o r that you are a failure, or have let yourself or your family down: Not at all Trouble concentrating on thi ngs, such as reading the newspaper or watching television: Not at all Moving or speaking so slowly that other people could have noticed; or the opposite, being so fidgety or restless that you have been moving around a lot more than usual: Not at all Thoughts that you would be b randa off or of hurting yourself in some way: Not at all Total Score: 8 Interpretation: Mild Depression Depression Screening PHQ-2 (2015 Edition) Little interest or pleasure in doing things?: More than half the days Lefuper arm iwnht seval lumps and pain in uper latearl shoiulder getting some inviluntary movement - numbness in fees and cramping laterallyu Feeling down, depressed, or hopeless?: N ot at all Total Score: 2 Examination Category Sub-Category Detail Notes Category Not es Physical Exam GENERAL: well developed, well nourished, in no acute distress HEAD: normocephalic/atraum atic EYES: pupils equal, round and reactive to light, conjunctivae and sclerae normal EARS: no deformity or lesi on of external ear, canals and TM appear normal bilaterally, TM's intact, not inflamed with normal light reflex, hearing grossly normal to conversational speech NOSE: no deformity, discha rge, inflammation, or lesions MOUTH: mucous membranes mango st, normal oropharynx and posterior pharynx without lesions or exudates, tongue normal, dentition normal NECK: neck supple, no mass es or palpable cervical nodes, trachea midline, thyroid without nodules, masses, tenderness, or enlargement CHEST: no chest wall deform ity, no chest wall tenderness LUNGS: normal respiratory e ffort and clear to auscultation, no wheezes, rales, or rhonchi, good air exchange CARDIO: regular rate and rhy thm, normal S1 and S2, nor murmur, rub, or gallop PULSES: normal capillary ref ill ABDOMEN: soft, non-distended, non-tender, no masses RECTAL: MUSCULOSKELETAL: no deformity or scol iosis noted, normal range of motion, joints normal, no erythema, edema, effusion, or ecchymosis EXTREMITY: no clubbing, cyanosi s, edema, or deformity with normal ROM in both upper and lower bilateral extremities NEUROLOGIC: grossly normal SKIN: no rashes, ulceratio ns, or suspicious lesions LYMPH NODES: no cervical adenopat hy, nodes normal MENTAL STATUS: alert and oriented x 3, normal mood and affect Consultation Request Notes Referral Date Referring Provider Referred Provider Not denae 06/07/2025 Florentin Domingo Michael
--- OUTSIDE RECORDS SUMMARY | 2025-06-08 07:38 | XMS_ITS | Clinical Summary ---
Author Organization [facility] Address [address] [place] [address] Phone Care Team Providers Care Meat Process Worker Name Role Phone March, Mehdi Call MD Primary Care Provid er Social History Tobacco Use Types Packs/Day Years Used Date Smoking Tobacco: Never Assessed Sex and Gender Information Value Date Recorded Sex Assigned at Not on file Legal Sex Male 6:36 PM EST Gender Identity Not on file Sexual Orientation Not on file Plan of Treatment Not on file Care Teams Meat Process Worker Relationship Specialty Start Date End Date March, Mehdi Call MD [address] [place] [address] PCP - General 05/14/10
--- OUTSIDE RECORDS SUMMARY | 2025-06-08 07:38 | XMS_ITS | Clinical Summary ---
Author Organization [facility] Address [address] [place] [address] Care Team Providers Care An/Ssn 2 4 Operator Name Role Phone Unavailable Primary Care Provider [...]
--- OUTSIDE RECORDS SUMMARY | 2025-06-08 07:39 | XMS_ITS | Clinical Summary ---
Author Organization [employer] tem Address [id number] [address] [place] [address] Care Team Providers Care Pharmacy Ancillary Name Role Phone Unavailable Primary Care Provider [...]
--- OUTSIDE RECORDS SUMMARY | 2025-06-08 07:39 | XMS_ITS | Clinical Summary ---
Author Organization [facility] Address [address] [place], [place] [id number] Care Team Providers Care Boat Ride Operator Name Role Phone Jt Brownlee MD Primary Care Provider [phone] Social History Tobacco Use Types Packs/Day Years [...] 2013 Shingrix Vaccine (1 of 2) 2013 Influenza Vaccine (#1) 2025 RSV Vaccine (1 - 1-dose 75+ series) 2038 Insurance BLUE CARD PPO OOS Care Teams Boat Ride Operator Relationship Specialty Start Date End Date Jt Brownlee MD PCP - General 05/07/07
--- OUTSIDE RECORDS SUMMARY | 2025-06-08 07:39 | XMS_ITS | Patient Health Record ---
Author Organization The [facility] in [place] Address [address] [place] [address] Care Team Providers Care Roller Inspector And Mender Name Role Phone OmarlibiaFlorentin Primary Care Provider Starla Hung Unavailable [phone] Allergies No Known Allergies Results Component Value Reference Range Notes CBC AUTO DIFF Reviewed date:08/28/2024 09:46:49 PM Interpretation: Performing Lab: Notes/Report: [facility] , White Blood Count 9.8 4.0-11.0 [...] 3/uL Performing Lab: see note ML - [facility] FREE T3 Reviewed date:08/28/2024 09:46:49 PM Interpretation: Performing Lab: Notes/Report: [facility] , Free T3 3.34 2.18-3.98 pg/mL Performing Lab: see note ML - [facility] LB LIPID PROFILE Reviewed date:08/28/2024 09:46:49 PM Interpretation: Performing Lab: Notes/Report: [facility] , Triglycerides 132 <=150 mg/dL Cholesterol 132 [...] RISK Performing Lab: see note ML - [facility] PSA SCREENING Reviewed date:08/28/2024 09:46:49 PM Interpretation: Performing Lab: Notes/Report: [facility] , Prostate Specific Antigen Scrn 1.03 <=4.00 ng/mL Performing Lab: see note ML - [facility] LB T4 Reviewed date:08/28/2024 09:46:49 PM Interpretation: Performing Lab: Notes/Report: [facility] , T4 Thyroxine 8.30 4.50-12.10 ug/dL Performing Lab: see note ML - [facility] LB TSH Reviewed date:08/28/2024 09:46:49 PM Interpretation: Performing Lab: Notes/Report: [facility] , Thyroid Stimulating Hormone 0.833 0.358-3.740 uIU/mL Performing Lab: see note ML - [facility] LB CBC AUTO DIFF Reviewed date:09/26/2024 02:18:07 PM Interpretation: Performing Lab: Notes/Report: [facility] , White Blood Count 9.3 4.0-11.0 10 [...] Performing Lab: see note ML - [facility] LB PROF CHEM 8 (BAS METB) Reviewed date:09/26/2024 02:18:07 PM Interpretation: Performing Lab: Notes/Report: [facility] , Sodium 144 136-145 mmol/L Potassium 4.2 [...] mg/dL Performing Lab: see note ML - [facility] NM jn perf SPECT rest str Reviewed date:09/21/2024 08:29:03 PM Interpretation: Performing Lab: Notes/Report: Source Facility: [place] [address] Nuclear Medicine Report Signed Patient: MICHAEL CRUZ MR#: [id number] : 1965 Acct:[id number] Age/Sex: 59 / M ADM Date: 09/21/24 Loc: [place] Attending Dr: Jm Hernandez M.D. Ordering Physician: Jm Hernandez M.D. Date of Service: 09/21/24 Procedure(s): NM jn perf SPECT rest str Accession Number(s): [id number] cc: Jm Hernandez M.D. Patient Name: MICHAEL CRUZ MR#: [id number] : 1965 Exam Date: 09/21/2024 Ordering Doctor: [...] DEFECT: LOCATION: Basal inferior. Mid-inferior. Apical inferior. [place]. SIZE: Medium (3-4 segments). SEVERITY: Moderate. TYPE: [...] Dictated By: Michael Sevilla M.D. Signed By: 09/21/241457 DD/ 55 TD/TT: Contact Lens Cutter: [place] [address] Nuclear Medicine Report Signed Patient: MICHAEL CRUZ MR#: [id number] : 1965 Acct:[id number] Age/Sex: 59 / M ADM Date: 09/21/24 Loc: [place] Attending Dr: Raji Hernandez M.D. Ordering Physician: Jm Hernandez M.D. Date of Service: 09/21/24 Procedure(s): NM jn perf SPECT rest str Accession Number(s): [id number] cc: Jm Hernandez M.D. Patient Name: MICHAEL CRUZ MR#: [id number] : 1965 Exam Date: 09/21/2024 Ordering Doctor: [...] DEFECT: LOCATION: Basal inferior. Mid-inferior. Apical inferior. [place]. SIZE: Medium (3-4 segments). SEVERITY: Moderate. TYPE: [...] Signed By: 09/21/24 1458 DD/ 1456 TD/TT: Contact Lens Cutter: URIC ACID SERUM Reviewed date:08/28/2024 09:46:49 PM Interpretation: Performing Lab: Notes/Report: [facility] , Uric Acid 8.0 3.5-7.2 mg/dL Performing Lab: see note ML - [facility] LB PROF 14(COMP METB) Reviewed date:08/28/2024 09:46:49 PM Interpretation: Performing Lab: Notes/Report: [facility] , Sodium 143 136-145 mmol/L Potassium 4.1 [...] Globulin Ratio 0.9 Performing Lab: see note - [facility] GLYCOHEMOGLOBIN A1C Reviewed date:08/28/2024 09:46:49 PM Interpretation: Performing Lab: Notes/Report: [facility] , Glycohemoglobin A1C 5.7 4.5-6.2 % ACTION SUGGESTED ADA THERAPEUTIC TARGET < 7.0 ADA RECOMMENDED LIMIT 4.0 - 6.0 > 7.0 Estimated Average Glucose 117 Performing Lab: see note - [facility] CT chest wo con Reviewed date:09/22/2024 01:37:39 PM Interpretation: Performing Lab: Notes/Report: Source Facility: [place] [address] CT Scan Report Signed Patient: MICHAEL CRUZ MR#: [id number] : 1965 Acct:[id number] Age/Sex: 59 / M ADM Date: 09/21/24 Loc: [place] Attending Dr: Jm Hernandez M.D. Ordering Physician: Jm Hernandez M.D. Date of Service: 09/21/24 Procedure(s): CT chest wo con Accession Number(s): [id number] cc: Jm Hernandez M.D. [place] [address] Patient Name: MICHAEL CRUZ MRN: [id number] date: 1965 Sex: M Assigned Patient Location: [place] Current Patient Location: Accession/Order Number: [id number] Exam Date: 09/21/2024 10:24 Report Date: 09/22/2024 [...] Dictated By: Jose Chaves M.D. Signed By: 09/22/249 DD/ 5 TD/TT: Contact Lens Cutter: [place] [address] CT Scan Report Signed Patient: MICHAEL CRUZ MR#: [id number] : 1965 Acct:[id number] Age/Sex: 59 / M ADM Date: 09/21/24 Loc: [place] Attending Dr: Raji Hernandez M.D. Ordering Physician: Jm Hernandez M.D. Date of Service: 09/21/24 Procedure(s): CT [facility] wo con Accession Number(s): [id number] cc: Jm Hernandez M.D. [address] [address] Patient Name: MICHAEL CRUZ MRN: [id number] date: 1965 Sex: M Assigned Patient Location: [place] Current Patient Location: Accession/Order Number: [id number] Exam Date: 10:24 Report Date: 09/22/2024 04:56 [...] Chaves M.D. Signed By: 09/22/24 0459 DD/ 045 TD/TT: Contact Lens Cutter: PROF KARO Jarrett ([facility]) Reviewed date:05/28/2025 05:56:29 PM Interpretation: Performing Lab: Notes/Report: [facility] , Sodium 141 136-145 mmol/L Potassium 3.6 3.5-5.1 mmol/L Chloride 105 98-107 mmol/L Carbon Dioxide 25.1 21.0-32.0 mmol/L Anion Gap 14.5 Glucose 117 74-106 mg/dL Blood Urea Nitrogen 35.0 7.0-18.0 mg/dL Creatinine 1.32 0.70-1.30 mg/dL Estimated GFR ( Danya >60 >=60 mL/min/1.73m 2 Estimated GFR (Non- Judy 55 >=60 mL/min/1.73m 2 BUN Creatinine Ratio 26.5 Calcium 9.1 8.5-10.1 mg/dL Performing Lab: see note ML - [facility] LB LIVER PROFILE Reviewed date:05/28/2025 05:56:29 PM Interpretation: Performing Lab: Notes/Report: [facility] , Bilirubin Total 0.7 0.2-1.0 mg/dL Bilirubin Direct 0.1 0.0-0.2 mg/dL Aspartate Amino Transferase 14 15-37 U/L Alanine Aminotransferase 22 16-63 U/L Alkaline Phosphatase 54 46-116 U/L Total Protein 7.5 6.4-8.2 g/dL Albumin Level 3.4 3.4-5.0 g/dL Globulin 4.1 Albumin Globulin Ratio 0.8 Performing Lab: see note ML - [facility] LB LIPID PROFILE Reviewed date:05/28/2025 05:56:29 PM Interpretation: Performing Lab: Notes/Report: [facility] , Triglycerides 96 <=150 mg/dL Cholesterol 133 <=200 mg/dL HDL Cholesterol 46 40-60 mg/dL > or =60 mg/dl - LOW CARDIOVASCULAR RISK <40 mg/dl - HIGH CARDIOVASCULAR RISK LDL Cholesterol Calculated 67.8 >190 mg/dl VERY HIGH 130-159 mg/dl BORDERLINE HIGH 160-189 mg/dl HIGH <100 mg/dl OPTIMAL 100-129 mg/dl NEAR OR ABOVE OPTIMAL VLDL CHOLESTEROL 19.2 Chol HDL Ratio 2.9 7.1 - 11.0 MODERATE RISK >11.0 HIGH RISK 3.3 - 4.4 LOW RISK 4.4 - 7.1 AVERAGE RISK Performing Lab: see note ML - [facility] LB INSULIN Reviewed date:08/29/2024 09:21:46 PM Interpretation: Performing Lab: Notes/Report: [facility] , Insulin 30.7 2.6-24.9 uIU/mL Tableau Developer: Clark Rodriguez PhD, Phone: [phone] Performed at: - [facility] [address] [id number] Performing Lab: see note - [facility] LB Reason For Referral Reason Patient has history of Crohns Diagnosis 1 Well adult (Z00.00) Referral Organization [facility] Referring Provider First Name Florentin Referring Provider Last Name Chayo [facility] Song Gannon Referred Provider Specialty Gastroentero logy Referral Priority Routine Reason screening colonoscop y Diagnosis 1 Well adult (Z00.00) Referral Organization [facility] Referring Provider First Name Florentin Referring Provider Last Name Chayo [facility] Referred Provider Benjamin Stuart Referred Provider Specialty General Surg randy Referral Priority Routine Diagnosis 1 Mass (R22.9) Referral Organization [facility] Referring Provider First Name Florentin Referring Provider Last Name Chayo Referring Provider [facility] gabo Referred Provider Benjamin Stuart Referred Provider Specialty General Surg randy Referral Priority Routine Diagnosis 1 Abnormal stress test (R94.39) Referral Organization [facility] Referring Provider First Name Florentin Referring Provider Last Name Chayo Referring Provider [facility] Ref[facility]erred Provider Specialty Cardiology Referral Priority Routine Medications Medication SIG (Take, Route, Frequency, Duration) Notes Start Date End Date Status Irbesartan 300 MG 1 tablet Orally Once a day for 30 days Active Meclizine HCl 25 MG TAKE 1 TABLET BY MOUTH EVERY 12 HOURS NEEDED for 30 PRN Active hydroCHLOROthiazide 25 MG 1 tablet Orall [...] a day for 30 days 05/29/2025 Active Pravastatin Sodium 10 MG 1 tablets [...] interested in quitting? Thinking about q uitting Problems Problem Type SNOMED Code ICD Code Onset Dates Problem Status W/U Status Risk Notes Problem Chest pain (10034739) Chest pain (R07.9) Active confirmed Problem Hypertension (92738670) Hypertension (I10) Active confirmed Problem Rectal bleeding (47789227) Rectal bleeding (K62.5) Active confirmed Problem Well adult (297792393) Well adult (Z00.00) Active confirmed Problem Solitary nodule of lung (227522803) Lung nodule (R91.1) Active confirmed Problem Near syncope (059887056) Near syncope (R55) Active confirmed Problem Crohn's disease of large bowel (3241355) Crohns colitis, other complication (K50.118) Active confirmed Problem Prediabetes (741431133) Pre-diabetes (R73.03) Active confirmed Vital Signs Blood pressure diastolic 70 mm Hg 06/07/2025 Height 71 in 06/07/2025 Blood pressure systolic 122 mm Hg 06/07/2025 Weight 225.6 lbs 06/07/2025 BMI 31.46 kg/m2 06/07/2025 Procedures Procedure Date Ordered Date Performed Result Body Sit e CARDIO Stress Test - Cardiolite 08/24/2024 N/A Encounters Encounter Location Date Provider Diagnosis [facility] [address] [place] [address] 05/28/2025 Florentin Hernandez [facility] [address] [place] [address] 08/26/2024 Florentin Hernandez Well adult Z00.00 [facility] [address] [place] [address] 08/28/2024 Starla Hung [facility] [address] [place] [address] 09/21/2024 Florentin Hernandez Abnormal stress test R94.39 [facility] [address] [place] [address] 05/24/2025 Florentin Nelsony [facility] [address] [place] [address] 08/24/2024 Florentin Holibia Hypertension I10 ; Well adult Z00.00 ; Chest pain R07.9 ; Near syncope R55 and Lung mass R91.8 [facility] [address] [place] [address] 06/07/2025 Florentin Hoy Hypertension I10 ; Insect bite W57.XXXA ; Mass R22.9 and Fatigue R53.83 Assessments Encounter Date Diagnosis (ICD Code) Assessment Notes Treatment Notes Treatment Clinical Notes Section Notes 08/24/2024 Hypertension (ICD-10 - I10) 08/24/2024 Well adult (ICD-10 - Z00.00) 06/07/2025 Hypertension (ICD-10 - I10) 06/07/2025 Insect bite (ICD-10 - W57.XXXA) 08/26/2024 Well adult (ICD-10 - Z00.00) 09/21/2024 Abnormal stress test (ICD-10 - R94.39) 06/07/2025 Mass (ICD-10 - R22.9) 08/24/2024 Chest pain (ICD-10 - R07.9) 08/24/2024 Near syncope (ICD-10 - R55) 06/07/2025 Fatigue (ICD-10 - R53.83) 08/24/2024 Lung mass (ICD-10 - R91.8) Plan Of Treatment Pending Test Test Name Order Date Exercise Treadmill Stress Test (TMST) CMP (COMPLETE METABOLIC PANEL) 4 HEMOGLOBIN A1C (GLYCO) 08/24/2024 INSULIN, TOTAL 08/24/2024 LYME TITER IGG and IGM (SCREEN) 06/07/20 25 LIPID PANEL (CHOL/TRIG/HDL/LDL) 08/24/20 24 CBC WITH DIFF 08/24/2024 PSA, PROSTATE-SPECIFIC ANTIGEN 3 URIC ACID 08/24/2024 CARDIO Stress Test - Cardiolite 08/24/20 24 RHEUMATOID PANEL 06/07/2025 CARDIO Stress Test - Treadmill Exercise Nuclear 03/19/2023 CT Chest Low Dose for Screening* 023 PSA, TOTAL 08/24/2024 TESTOSTERONE, TOTAL 06/07/2025 URIC ACID SERUM 06/07/2025 CT CHEST WO CON 08/24/2024 CT CHEST W CON 06/23/2023 THYROID PANEL (T4/TSH/FREE T3) 3 THYROID PANEL (T4/TSH/FREE T3) 4 PET skull to mid thigh 08/24/2024 Insurance Providers Payer Name Payer Address Payer Phone Subscriber Number Group Number Insured Name Patient Relationship to Insured Coverage Start Date Coverage End Date MMO [address] [place], [place] [id number] Michael Cruz Self - patient is the insured 4 Medical (General) History Medical History History ICD Code Crohn disease K50.90 Hypertension I10 Vertigo R42 Surgical History Surgery Date(Month/Year) Heart Cath- no stents 09/[address] Stuart 10/21/2024 hx of [place] implanted in Rectum Left Hand Surgery
--- OUTSIDE RECORDS SUMMARY | 2025-06-08 07:39 | XMS_ITS | Clinical Summary ---
Author Organization [facility] Address [address] [place] [address] Care Team Providers Care Machinist Brake Name Role Phone Robert Domingo MD Primary Care Provider [phone] Allergies Active Allergy Reactions Criticality Noted Date [...] 10 mg tabletIndications :Coronary artery disease involving [place] coronary artery of [place] heart without angina pectoris Take 1 tablet [...] Description 03/20/2025 9:00 AM EDT Office Visit [facility] [address] [place] [address] Rigo Vazquez MD Coronary artery disease involving [place] coronary artery of [place] heart without angina pectoris (Primary Dx); Essential [...] Care Team (Late st Contact Info) Description 06/19/2025 9:45 AM EDT [facility] [address] [place] [address] Rigo Vazquez MD [address] [facility] [place] [address] Health Maintenance Due Date Last Done [...] to complete this topic Insurance [employer] [place] [id number] Care Teams Machinist Brake Relationship Specialty Start Date End Date Robert Domingo MD [address] [facility] [address] [place] [id number] PCP - General 09/22/24
--- OUTSIDE RECORDS SUMMARY | 2025-06-08 07:57 | XMS_ITS | CCD ---
Author Organization [facility] Care Team Providers Care Edging Machine Feeder Name Role Phone Jose Mobley Admitting Unavailable Jose Mobley Attending Unavailable March, Mehdi Primary Care Unavailable Robert Domingo Primary Care Unavailable Song Gannon Attending Unavailable Song Gannon Admitting Unavailable Song Gannon MD Attending Provider Robert Domingo MD Primary Care Provider [phone] ERNIE NULL Attending Unavailable CRISTOBAL BAXTER Attending Unavailable CRISTOBAL BAXTER Admitting Unavailable CRISTOBAL BAXTER Attending Unavailable CRISTOBAL BAXTER Referring Unavailable CRISTOBAL BAXTER Attending Unavailable Robert Domingo MD Primary Care Provider [phone] Mirtha Allen PA-C Attending Provider Song Gannon MD Attending Provider Allergies Allergy Classification Reported Allergen(s) Allergy Type Date of Onset Reaction(s) Facility (1 source) Lisinopril; Translations: [LISINOPRIL] Drug Allergy 09-23-2024 [facility] Repository Medications Current Medications Medication Drug Class(es) Dates Sig (Normalized) Sig (Original) [id number] 200 actuat albuterol 0.09 mg/actuat metered dose [...] disease (2 sources) Atherosclerotic heart disease of [place] coronary artery without angina pectoris; Translations: [Atherosclerotic heart disease of [place] coronary artery without angina pectoris] Onset: 03-20-2025 [...] Range Facility Office Visiton 03-20-2025 Follow-up visit [id number] Hal Ornelas 1965 M Date Provider Department Center 03/20/2025 ERNIE LOYA Family History Problem Relation Age of Onset Diabetes Mother Coronary artery disease Mother Other Mother Diabetes Father Family Status - Relation Status Age at Mother Father Alive Sister Alive Brother Level of Service:33252 MS OFFICE/OUTPATIENT ESTABLISHED MOD MDM 30 MIN Normal [facility] Follow-Upon 11-11-2024 Follow-Up [id number] Hal Ornelas edilberto Kimble 1965 M Date Provider Department Center 11/11/2024 3848-CRISTOBAL BAXTER MANUEL Cherry Family History Problem Relation Age of Onset Diabetes Mother Coronary artery disease Mother Other Mother Diabetes Father Family Status - Relation Status Age at Mother Father Level of Service:74264 MS OFFICE/OUTPATIENT ESTABLISHED MOD MDM 30 MIN Normal [facility] No Panel InformationOrdered By: Song Gannon on 10-21-2024 Miscellaneous Pathology Test See comment [facility] Comment on above: See report. Scanned copy available in EMR. Pathology Request for Lab Co rpon 10-21-2024 Pathology Request for Lab Shaneka Normal [facility] Comment on above: Order Comment: PATHO LOGY GI SPECIMEN Result Comment: See report. Scanned copy available in EMR. PERFORMED BY: [place] [address] PATHOLOGIST [employer] CLEANING MACHINE OPERATOR MARCO ANTONIO ALDRICH M.D. Performed By: #### P ATH TO [facility] #### [address] HPon 10-03-2024 HP - Attestation signed [...] possible PCI. Marizol Roman MD PGY-7 Interventional Forensic Dna Analyst [facility] NURSNOTPhilippon 10-03-2024 NURSNOTE [...] stress test Essential hypertension Angina pectoris, unstable ([facility]) Diagnoses and all orders for this visit: [...] plan. Patient (more content not included)... Normal [facility] Office Visiton 09-23-2024 Follow-up visit [id number] Hal Ornelas 1965 M Date Provider Department Center 09/23/2024 Gus-CRISTOBAL BAXTER MANUEL Cherry Family History Problem Relation Age of Onset Diabetes Mother Coronary artery disease Mother Other Mother Diabetes Father Family Status - Relation Status Age at Mother Father Level of Service:17417 MS OFFICE/OUTPATIENT NEW MODERATE MDM 45 MINUTES Normal [facility] Orders Onlyon 09-23-2024 Orders Only [id number] Hal Ornelas 1965 M Date Provider Department Center 09/23/2024 895-NASIMA SALDANA MANUEL Cherry Family History Problem Relation Age of Onset Diabetes Mother Coronary artery disease Mother Other Mother Diabetes Father Family Status - Relation Status Age at Mother Father Normal [facility] Coding Summary.on 03-13-2019 Coding Summary. CODING DATE: 03/13/2019 [facility] STATUS: Home (Routine DC) PAYOR: [employer] ADMIT DX: REASON FOR VISIT DX: M65.4 [...] CphT Date Saved: 03/13/2019 08:43 am Normal [facility] Uric Acidon 03-07-2019 Urate mass conc 8.5 mg/dL High 2.2-7.4 [facility] Comment on above: Performed By: #### 2 [id number] #### [facility] [address] [place] [address] Vital Signs Date Time Vital Sign Value Performing Clinician Nurisi jori 04-27-2025 13:30-0400 Body height 180.34 cm Robert Domingo MD Work Phone: [facility] 04-27-2025 13:30-0400 Body mass index (BMI) [Ratio] 32.1 kg/m2 Robert Domingo MD Work Phone: [facility] 04-27-2025 13:30-0400 Body weight 104.32 kg Robert Domingo MD Work Phone: [facility] 04-18-2025 10:010400 Body height 180.34 cm Robert Domingo MD Work Phone: [facility] 04-18-2025 10:01-0400 Body mass index (BMI) [Ratio] 32.1 kg/m2 Robert Domingo MD Work Phone: [facility] 04-18-2025 10:010400 Body temperature 98.4 [degF] Robert Domingo MD Work Phone: [facility] 04-18-2025 10:01-0400 Body weight 104.32 kg Robert Domingo MD Work Phone: [facility] 04-18-2025 10:01-0400 Diastolic blood pressure 71 mm[Hg] Robert Domingo MD Work Phone: [facility] 04-18-2025 10:01-0400 Heart rate 77 /min Robert Domingo MD Work Phone: [facility] 04-18-2025 10:01-0400 Respiratory rate 16 /min Robert Domingo MD Work Phone: [facility] 04-18-2025 10:01-0400 SaO2% (BldA) [Mass fraction] 97 % Robert Domingo MD Work Phone: [facility] 04-18-2025 10:01-0400 Systolic blood pressure 111 mm[Hg] Robert Domingo MD Work Phone: [facility] 12-26-2024 15:20-0500 Body height 180.34 cm Robert Domingo MD Work Phone: [facility] 12-26-2024 15:20-0500 Body mass index (BMI) [Ratio] 33.2 kg/m2 Robert Domingo MD Work Phone: [facility] 12-26-2024 15:20-0500 Body temperature 98.6 [degF] Robert Domingo MD Work Phone: [facility] 12-26-2024 15:20-0500 Body weight 107.95 kg Robert Domingo MD Work Phone: [facility] 12-26-2024 15:20-0500 Diastolic blood pressure 76 mm[Hg] Robert Domingo MD Work Phone: [facility] 12-26-2024 15:20-0500 Heart rate 80 /min Robert Domingo MD Work Phone: [facility] 12-26-2024 15:20-0500 Respiratory rate 16 /min Robert Domingo MD Work Phone: [facility] 12-26-2024 15:20-0500 SaO2% (BldA) [Mass fraction] 96 % Robert Domingo MD Work Phone: [facility] 12-26-2024 15:20-0500 Systolic blood pressure 132 mm[Hg] Robert Domingo MD Work Phone: [facility] 10-21-2024 09:50-0500 Diastolic blood pressure 90 mm[Hg] Robert Domingo MD Work Phone: [facility] 10-21-2024 09:50-0500 Heart rate 65 /min Robert Domingo MD Work Phone: [facility] 10-21-2024 09:50-0500 Respiratory rate 16 /min Robert Domingo MD Work Phone: [facility] 10-21-2024 09:50-0500 SaO2% (BldA) [Mass fraction] 96 % Robert Domingo MD Work Phone: [facility] 10-21-2024 09:50-0500 Systolic blood pressure 159 mm[Hg] Robert Domingo MD Work Phone: [facility] 10-21-2024 08:25-0500 Body height 180.34 cm Robert Domingo MD Work Phone: [facility] 10-21-2024 08:25-0500 Body weight 104 kg Robert Domingo MD Work Phone: [facility] Encounters Encounter Date Encounter Type Care Provider Facility Start: 04-27-2025 End: 04-27-2025 ambulatory Robert Domingo MD Work Phone: [facility] Work Phone: Start: 04-27-2025 End: 04-27-2025 Patient encounter procedure Song Gannon MD -[facility] Work Phone: Start: 04-18-2025 End: 04-18-2025 Patient encounter procedure Mirtha MONTILLA -[facility] Work Phone: Start: 03-20-2025 End: 03-20-2025 ambulatory [facility] Start: 12-26-2024 End: 12-26-2024 ambulatory Robert Domingo MD Work Phone: [facility] Work Phone: Start: 12-26-2024 End: 12-26-2024 Patient encounter procedure Robert Domingo MD Work Phone: [facility] Work Phone: Start: 11-11-2024 End: 11-11-2024 ambulatory [facility] Start: 10-21-2024 Non-patient / Non-visit Raji Domingo MD Work Phone: [facility] Work Phone: Start: 10-21-2024 End: 10-21-2024 Admission to same day surgery center Robert Domingo MD Work Phone: [facility] Work Phone: Start: 10-21-2024 End: 10-21-2024 ambulatory Robert Domingo Facility:[facility] Start: 10-03-2024 End: 10-03-2024 ambulatory [facility] Start: 09-23-2024 End: 09-23-2024 ambulatory [facility] Start: 03-07-2019 End: 03-08-2019 Patient encounter procedure Jose Hieuphilipp Facility[place] Procedures Date Procedure Procedure Detail Performing Clinician Start: 10-21-2024 Colonoscopy Robert reza MD Work Phone: Plan of Treatment Date Care Activity Detail Author Start: 10-21-2024 [facility] Patient Education Know your Meds [facility] Work Phone: Payers Date Payer Category Payer Self-pay 2023 Unknown [id number] 2019 Unknown [id number] 1965 Unknown [id number] Unknown [id number] Social History Date Type Detail Facility Start: 12-26-2024 End: 12-26-2024 Tobacco smoking status NHIS Ex-smoker (finding) [facility] Start: 12-26-2024 Sex Male (finding) [facility] Start: 1965 Sex Assigned At Male F [facility] Goals Date Patient Goal Desired Activity /State Evaluation note 04-18-2025 Note Date & Type Note Facility 04-18-2025 Evaluation note Diagnosis Onset Date Resolution Gout flare acute April 18 9:44am Rectal bleeding acute April 1:25pm [facility] Work Phone: Progress note 03-20-2025 Note Date & Type Note Facility 03-20-2025 Note [place] Cardiology - [facility] Subjective Raphael Ornelas is a 59 [...] Rate 10/03/2024 54 Atrial Rate 10/03/2024 54 MS Interval 10/03/2024 120 QRS DURATION 10/03/2024 144 QT Interval 10/03/2024 492 QTC CALCULATION(BAZETT) 10/03/2024 466 P [place] 10/03/2024 40 R-[place] 10/03/2024 26 T Wave [place] 10/03/2024 (more content not included)... [facility] Progress note 11-11-2024 Note Date & Type [...] Value Ventricular Rate 54 Atrial Rate 54 MS Interval 120 QRS DURATION 144 QT Interval 492 QTC CALCULATION(BAZETT) 466 P [place] 40 R-[place] 26 T Wave [place] -8 Impression Sinus bradycardia Right bundle branch [...] HEMODYNAMICS: AO: 153/90 (more content not included)... [facility] Clinical Note 10-03-2024 Note Date & Type Note Facility 10-03-2024 Note Patient: Raphael philippe Procedure Information Date/Time: 10/03/24929 Procedure: Coronary angiography (Left) - PC APPROVED Location: [facility] / [facility] (Cath) Providers: Cristobal Baxter MD Clinical information reviewed: Allergies Meds Physical Exam Airway Mallampati: II TM distance: <3 FB Cardiovascular Rhythm: regular Rate: normal Dental Pulmonary Abdominal Anesthesia Plan ASA 3 other (Conscious ) Anesthetic plan and risks discussed with patient. Use of blood products discussed with patient who consented to blood products. Plan discussed with attending. Additional Equipment Requests [facility] Progress note 09-23-2024 Note Date & Type [...] stress test Essential hypertension Angina pectoris, unstable ([facility]) Diagnoses and all orders for this visit: [...] current plan. Patient (more content not included)... [facility] Evaluation note Note Date & Type Note Facility Evaluation note Diagnosis Onset Date Resolution Respiratory infection acute Feb ruary 2024 3:13pm [facility] Work Phone: Reason for referral (narrative) Note Date & Type Note Facility Reason for referral (narrative) No reason for referral information available [facility] Work Phone: Summary Purpose Family History Relationship Condition Age at Onset Recorded Date/T nlel father Hypertension Unknown Diabetes mellitus Unknown family [...] and content) DATE CREATED AUTHOR [facility]21/2019 [facility] DATE CREATED AUTHOR AUTHOR'S ORGANIZ ATION 11/13/2024 [facility] DATE CREATED AUTHOR AUTHOR'S ORGANIZ ATION 03/20/2025 [facility] Care Teams (unrecognized sec tion and [...] BE BASED ON THE PRIMARY CLINICAL RECORDS. [facility]. provides no warranty or guarantee of the accuracy or completeness of information in this document.
[2025-06-08 09:48] LABS: Uric Acid 8.3 mg/dL (3.5-7.2)
[2025-06-09 15:08] LABS: Antinuclear Antibodies, IFA Positive (.)
== END 2025-06-08 07:37 | disposition home or self-care (01) ==
LOC: LAB 07:37
PROVIDERS: PCP Family Medicine; Visit Provider Family Medicine
DX: T14.8XXA Other injury of unspecified body region, initial encounter (principal); R53.83 Other fatigue; W57.XXXA Bitten or stung by nonvenomous insect and other nonvenomous arthropods, initial encounter
CPT/HCPCS: 36415; 84403; 84550; 86038; 86060; 86140; 86431; 86618

== ENCOUNTER 2025-06-09 06:52 | Outpatient (OUT) | payer OTHER, SELFPAY ==
--- NOTE | 2025-06-09 07:00 | CA_ITS ---
Patient Name: MICHAEL CRUZ MR#: [id number] : 1965 Exam Date: 06/09/2025 Ordering Doctor: DR ERNIE VAZQUEZ M.D. ECHOCARDIOGRAM REPORT PROCEDURE: CA ECHO DOPPLER COMPLETE INDICATIONS: Shortness of breath, former smoker COMPARISON: None. DESCRIPTION: COMPLETE ECHOCARDIOGRAM Real-time transthoracic echocardiography with 2D, M-mode, spectral and color flow Doppler performed. QUALITY: Technical quality was good. LEFT VENTRICLE: Normal chamber size. Mild concentric left ventricular hypertrophy. Normal systolic function. Estimated left ventricular ejection fraction is 60-65%. LV EF: Normal left ventricular ejection fraction, (>55%). DIASTOLIC: Normal diastolic function. ATRIAL SEPTUM: Visually appears intact. LEFT ATRIUM: Mild dilatation. RIGHT ATRIUM: Mild dilatation. RIGHT VENTRICLE: Mild chamber dilatation. Normal right ventricular systolic function. TRICUSPID VALVE: Normal mobility and thickness. No stenosis with mild regurgitation. No evidence of pulmonary hypertension. RVSP 34 mmHg MITRAL VALVE: Normal mobility and thickness. No evidence of mitral valve stenosis. There is no mitral annular calcification. Mild mitral regurgitation. AORTIC VALVE: Normal trileaflet appearance. Mildly calcified aortic valve. Normal leaflet mobility. No evidence of aortic valve stenosis. No aortic regurgitation. AORTIC ROOT: Normal diameter and appearance, measuring 3.4 cm. Ascending aorta is normal in size, measuring 3.2 cm. PULMONIC VALVE: Normal thickness and mobility. No stenosis. No regurgitation. PERICARDIUM: No evidence of pericardial effusion. IVC: Collapses with inspiration. IVC is normal in size. PLEURA: CONCLUSION: 1. Mild concentric left ventricular hypertrophy with normal systolic function. Estimated LVEF is 60 to 65%. 2. Mildly dilated right ventricle with normal systolic function. 3. Normal diastolic function. 4. Mild biatrial dilatation. 5. Mild mitral and tricuspid regurgitation. 6. Normal right-sided pressures. Adult Echocardiography Procedure Report Left Ventricle LVEDD (3.7 - 5.6 cm): 5.21 cm LVESD (2.2 - 4.0 cm): 3.97 cm LVIVS thickness (0.6 - 1.2 cm): 1.33 cm LVPW thickness (0.5 - 1.0 cm): 1.09 cm e': 0.13 m/s E - e': 5.27 LVOT Max Gradient: 2.98 mm[Hg] LVOT Area (cm2): 0.86 m/s Peak Velocity (LVOT): 0.86 m/s LVOT Diameter 2.48 cm Left Ventricular Ejection Fraction: 60-65 % Left Atrium LA Volume Index (2D A2C): 26.47 ml/m2 Left Atrium Systolic Dimension: 3.74 cm Mitral Valve MV E to A Ratio: 0.90 Mitral Valve A-Wave Peak Velocity: 0.76 m/s Mitral Valve E-Wave Peak Velocity: 0.69 m/s Right Ventricle Aorta AO Root Diam: 3.43 cm Ascending Ao Diam: 3.19 cm Aortic Valve AoV Area (Peak Gage): 3.02 cm2, 3.02 cm2 Peak Velocity(Antegrade Flow): 1.38 m/s Peak Gradient(Antegrade Flow): 7.67 mm[Hg] Tricuspid Valve Peak Velocity (Regurgitant Flow): 2.78 m/s Pulmonic Valve Peak Gradient: 7.69 mm[Hg], 6.65 mm[Hg] Right Atrium Right Atrium Systolic Pressure: 66.20 ml, 66.20 ml Dictated by: Ernie Vazquez M.D. on 06/10/2025 at 19:58 Approved by: Ernie Vazquez M.D. on 06/10/2025 at 20:02
--- OUTSIDE RECORDS SUMMARY | 2025-06-09 07:07 | XMS_ITS | CCD ---
Author Organization [facility] Care Team Providers Care Plastic Straightening Roll Operator Name Role Phone Jose Mobley Admitting Unavailable Jose Mobley Attending Unavailable March, Mehdi Primary Care Unavailable Robert Domingo Primary Care Unavailable Song Gannon Attending Unavailable Song Gannon Admitting Unavailable Song Gannon MD Attending Provider Robert Domingo MD Primary Care Provider [phone] ERNIE NULL Attending Unavailable CRISTOBAL BAXTER Attending Unavailable CRISTOBAL BAXTER Admitting Unavailable CRISTOBLA BAXTER Attending Unavailable CRISTOBAL BAXTER Referring Unavailable CRISTOBAL BAXTER Attending Unavailable Robert Domingo MD Primary Care Provider [phone] Mirtha Allen PA-C Attending Provider Song Gannon MD Attending Provider [phone] Allergies Allergy Classification Reported Allergen(s) Allergy Type Date of Onset Reaction(s) Facility (1 source) Lisinopril; Translations: [LISINOPRIL] Drug Allergy 09-23-2024 [facility] Repository Medications Current Medications Medication Drug Class(es) Dates Sig (Normalized) Sig (Original) [id number] 200 actuat albuterol 0.09 mg/actuat metered dose [...] disease (2 sources) Atherosclerotic heart disease of [place] coronary artery without angina pectoris; Translations: [Atherosclerotic heart disease of [place] coronary artery without angina pectoris] Onset: 03-20-2025 [...] Range Facility Office Visiton 03-20-2025 Follow-up visit [id number] Hal Ornelas 1965 M Date Provider Department Center 03/20/2025 ERNIE LOYA Family History Problem Relation Age of Onset Diabetes Mother Coronary artery disease Mother Other Mother Diabetes Father Family Status - Relation Status Age at Mother Father Alive Sister Alive Brother Level of Service:55221 [place] OFFICE/OUTPATIENT ESTABLISHED MOD MDM 30 MIN Normal [facility] Follow-Upon 11-11-2024 Follow-Up [id number] Hal Ornelas edilberto Kimble 1965 M Date Provider Department Center 11/11/2024 3848-CRISTOBAL BAXTER MANUEL Cherry Family History Problem Relation Age of Onset Diabetes Mother Coronary artery disease Mother Other Mother Diabetes Father Family Status - Relation Status Age at Mother Father Level of Service:40872 [place] OFFICE/OUTPATIENT ESTABLISHED MOD MDM 30 MIN Normal [facility] No Panel InformationOrdered By: Song Gannon on 10-21-2024 Miscellaneous Pathology Test See comment [facility] Comment on above: See report. Scanned copy available in EMR. Pathology Request for Lab Co rpon 10-21-2024 Pathology Request for Lab Shaneka Normal [facility] Comment on above: Order Comment: PATHO LOGY GI SPECIMEN Result Comment: See report. Scanned copy available in EMR. PERFORMED BY: [place] [address] PATHOLOGIST IT SECURITY ADMINISTRATOR MARCO ANTONIO ALDRICH M.D. Performed By: #### P ATH TO [facility] #### [address] HPon 10-03-2024 HP - Attestation signed [...] possible PCI. Marizol Roman MD PGY-7 Interventional Shift Mgr [facility] NURSNOTPhilippon 10-03-2024 NURSNOTE RN educated pt on [...] off of unit with all of belongings. [facility] HPon 09-23-2024 Cardiology Clinic Note Chief Complaint: [...] stress test Essential hypertension Angina pectoris, unstable ([facility]) Diagnoses and all orders for this visit: [...] plan. Patient (more content not included)... Normal [facility] Office Visiton 09-23-2024 Follow-up visit [id number] Hal Ornelas 1965 M Date Provider Department Center 09/23/2024 Gus-CRISTOBAL BAXTER MANUEL Cherry Family History Problem Relation Age of Onset Diabetes Mother Coronary artery disease Mother Other Mother Diabetes Father Family Status - Relation Status Age at Mother Father Level of Service:66454 [place] OFFICE/OUTPATIENT NEW MODERATE MDM 45 MINUTES Normal [facility] Orders Onlyon 09-23-2024 Orders Only [id number] Hal Ornelas 1965 M Date Provider Department Center 09/23/2024 895-NASIMA SALDANA MANUEL Cherry Family History Problem Relation Age of Onset Diabetes Mother Coronary artery disease Mother Other Mother Diabetes Father Family Status - Relation Status Age at Mother Father Normal [facility] Coding Summary.on 03-13-2019 Coding Summary. CODING DATE: 03/13/2019 [facility] STATUS: Home (Routine DC) PAYOR: [facility] [place] ADMIT DX: REASON FOR VISIT DX: M65.4 [...] CphT Date Saved: 03/13/2019 08:43 am Normal [facility] Uric Acidon 03-07-2019 Urate mass conc 8.5 mg/dL High 2.2-7.4 [facility] Comment on above: Performed By: #### 2 [id number] #### [facility] [address] [place] [address] Vital Signs Date Time Vital Sign Value Performing Clinician Nurisi jori 04-27-2025 13:30-0400 Body height 180.34 cm Robert Domingo MD Work Phone: [facility] 04-27-2025 13:30-0400 Body mass index (BMI) [Ratio] 32.1 kg/m2 Robert Domingo MD Work Phone: [facility] 04-27-2025 13:30-0400 Body weight 104.32 kg Robert Domingo MD Work Phone: [facility] 04-18-2025 10:010400 Body height 180.34 cm Robert Domingo MD Work Phone: [facility] 04-18-2025 10:01-0400 Body mass index (BMI) [Ratio] 32.1 kg/m2 Robert Domingo MD Work Phone: [facility] 04-18-2025 10:010400 Body temperature 98.4 [degF] Robert Domingo MD Work Phone: [facility] 04-18-2025 10:01-0400 Body weight 104.32 kg Robert Domingo MD Work Phone: [facility] 04-18-2025 10:01-0400 Diastolic blood pressure 71 mm[Hg] Robert Domingo MD Work Phone: [facility] 04-18-2025 10:01-0400 Heart rate 77 /min Robert Domingo MD Work Phone: [facility] 04-18-2025 10:01-0400 Respiratory rate 16 /min Robert Domingo MD Work Phone: [facility] 04-18-2025 10:01-0400 SaO2% (BldA) [Mass fraction] 97 % Robert Domingo MD Work Phone: [facility] 04-18-2025 10:01-0400 Systolic blood pressure 111 mm[Hg] Robert Domingo MD Work Phone: [facility] 12-26-2024 15:20-0500 Body height 180.34 cm Robert Domingo MD Work Phone: [facility] 12-26-2024 15:20-0500 Body mass index (BMI) [Ratio] 33.2 kg/m2 Robert Domingo MD Work Phone: [facility] 12-26-2024 15:20-0500 Body temperature 98.6 [degF] Robert Domingo MD Work Phone: [facility] 12-26-2024 15:20-0500 Body weight 107.95 kg Robert Domingo MD Work Phone: [facility] 12-26-2024 15:20-0500 Diastolic blood pressure 76 mm[Hg] Robert Domingo MD Work Phone: [facility] 12-26-2024 15:20-0500 Heart rate 80 /min Robert Domingo MD Work Phone: [facility] 12-26-2024 15:20-0500 Respiratory rate 16 /min Robert Domingo MD Work Phone: [facility] 12-26-2024 15:20-0500 SaO2% (BldA) [Mass fraction] 96 % Robert Domingo MD Work Phone: [facility] 12-26-2024 15:20-0500 Systolic blood pressure 132 mm[Hg] Robert Domingo MD Work Phone: [facility] 10-21-2024 09:50-0500 Diastolic blood pressure 90 mm[Hg] Robert Domingo MD Work Phone: [facility] 10-21-2024 09:50-0500 Heart rate 65 /min Robert Domingo MD Work Phone: [facility] 10-21-2024 09:50-0500 Respiratory rate 16 /min Robert Domingo MD Work Phone: [facility] 10-21-2024 09:50-0500 SaO2% (BldA) [Mass fraction] 96 % Robert Domingo MD Work Phone: [facility] 10-21-2024 09:50-0500 Systolic blood pressure 159 mm[Hg] Robert Domingo MD Work Phone: [facility] 10-21-2024 08:25-0500 Body height 180.34 cm Robert Domingo MD Work Phone: [facility] 10-21-2024 08:25-0500 Body weight 104 kg Robert Domingo MD Work Phone: [facility] Encounters Encounter Date Encounter Type Care Provider Facility Start: 04-27-2025 End: 04-27-2025 ambulatory Robert Domingo MD Work Phone: [facility] Work Phone: Start: 04-27-2025 End: 04-27-2025 Patient encounter procedure Song Gannon MD -[facility] Work Phone: Start: 04-18-2025 End: 04-18-2025 Patient encounter procedure Mirtha MONTILLA -[facility] Work Phone: Start: 03-20-2025 End: 03-20-2025 ambulatory [facility] Start: 12-26-2024 End: 12-26-2024 ambulatory Robert Domingo MD Work Phone: [facility] Work Phone: Start: 12-26-2024 End: 12-26-2024 Patient encounter procedure Robert Domingo MD Work Phone: [facility] Work Phone: Start: 11-11-2024 End: 11-11-2024 ambulatory [facility] Start: 10-21-2024 Non-patient / Non-visit Raji Domingo MD Work Phone: [facility] Work Phone: Start: 10-21-2024 End: 10-21-2024 Admission to same day surgery center Robert Domingo MD Work Phone: [facility] Work Phone: Start: 10-21-2024 End: 10-21-2024 ambulatory Robert Domingo Facility:[facility] Start: 10-03-2024 End: 10-03-2024 ambulatory [facility] Start: 09-23-2024 End: 09-23-2024 ambulatory [facility] Start: 03-07-2019 End: 03-08-2019 Patient encounter procedure Jose Hieuphilipp Facility:[facility] Procedures Date Procedure Procedure Detail Performing Clinician Start: 10-21-2024 Colonoscopy Robert reza MD Work Phone: Plan of Treatment Date Care Activity Detail Author Start: 10-21-2024 [facility] Patient Education Know your Meds [facility] Work Phone: Payers Date Payer Category Payer Self-pay 2023 Unknown [id number] 2019 Unknown [id number] 1965 Unknown [id number] Unknown [id number] Social History Date Type Detail Facility Start: 12-26-2024 End: 12-26-2024 Tobacco smoking status NHIS Ex-smoker (finding) [facility] Start: 12-26-2024 Sex Male (finding) [facility] Start: 1965 Sex Assigned At Male F [facility] Goals Date Patient Goal Desired Activity /State Evaluation note 04-18-2025 Note Date & Type Note Facility 04-18-2025 Evaluation note Diagnosis Onset Date Resolution Gout flare acute April 18 9:44am Rectal bleeding acute April 1:25pm [facility] Work Phone: Progress note 03-20-2025 Note Date & Type Note Facility 03-20-2025 Note [facility] Subjective Raphael Ornelas is a [...] Rate 10/03/2024 54 Atrial Rate 10/03/2024 54 FL Interval 10/03/2024 120 QRS DURATION 10/03/2024 144 QT Interval 10/03/2024 492 QTC CALCULATION(BAZETT) 10/03/2024 466 P [place] 10/03/2024 40 R-[place] 10/03/2024 26 T Wave [place] 10/03/2024 (more content not included)... [facility] Progress note 11-11-2024 Note Date & [...] Value Ventricular Rate 54 Atrial Rate 54 FL Interval 120 QRS DURATION 144 QT Interval 492 QTC CALCULATION(BAZETT) 466 P [place] 40 R-[place] 26 T Wave [place] -8 Impression Sinus bradycardia Right bundle branch [...] HEMODYNAMICS: AO: 153/90 (more content not included)... [facility] Clinical Note 10-03-2024 Note Date & Type Note Facility 10-03-2024 Note Patient: Raphael philippe Procedure Information Date/Time: 10/03/24929 Procedure: Coronary angiography (Left) - PC APPROVED Location: [facility] OFFICE ASSISTANT RECEPTIONIST 3 / [facility] (Cath) Providers: Cristobal Baxter MD Clinical information reviewed: Allergies Meds Physical Exam Airway Mallampati: II TM distance: <3 FB Cardiovascular Rhythm: regular Rate: normal Dental Pulmonary Abdominal Anesthesia Plan ASA 3 other (Conscious ) Anesthetic plan and risks discussed with patient. Use of blood products discussed with patient who consented to blood products. Plan discussed with attending. Additional Equipment Requests [facility] Progress note 09-23-2024 Note Date & [...] stress test Essential hypertension Angina pectoris, unstable ([facility]) Diagnoses and all orders for this visit: [...] current plan. Patient (more content not included)... [facility] Evaluation note Note Date & Type Note Facility Evaluation note Diagnosis Onset Date Resolution Respiratory infection acute Feb ruary 2024 3:13pm [facility] Work Phone: Reason for referral (narrative) Note Date & Type Note Facility Reason for referral (narrative) No reason for referral information available [facility] Work Phone: Summary Purpose Family History [...] and content) DATE CREATED AUTHOR [facility]21/[facility] DATE CREATED AUTHOR AUTHOR'S ORGANIZ ATION 11/13/2024 [facility] DATE CREATED AUTHOR AUTHOR'S ORGANIZ ATION 03/20/2025 [facility] Care Teams (unrecognized sec tion and [...] BE BASED ON THE PRIMARY CLINICAL RECORDS. [facility] [employer] [facility]. provides no warranty or guarantee of the accuracy or completeness of information in this document.
== END 2025-06-09 06:53 | disposition home or self-care (01) ==
LOC: CARD 06:52
PROVIDERS: PCP Family Medicine; Visit Provider Internal Medicine Interventional Cardiology
DX: R06.02 Shortness of breath (principal)
CPT/HCPCS: 93306

== ENCOUNTER 2025-07-15 07:51 | Outpatient (OUT) | payer OTHER, SELFPAY ==
--- OUTSIDE RECORDS SUMMARY | 2025-07-15 07:56 | XMS_ITS | CCD ---
Author Organization [facility] Care Team Providers Care Car Repairman Name Role Phone Robert Domingo Primary Care Unavailable Song Gannon Attending Unavailable Song Gannon Admitting Unavailable Song Gannon MD Attending Provider [phone] Robert Domingo MD Primary Care Provider [phone] Robert Domingo MD Primary Care Provider [phone] Mirtha Allen PA-C Attending Provider Song Gannon MD Attending Provider CRISTOBAL BAXTER Admitting Unavailable CRISTOBAL BAXTER Attending Unavailable CRISTOBAL BAXTER Referring Unavailable ERNIE NULL Attending Unavailable CRISTOBAL BAXTER Attending Unavailable CRISTOBAL BAXTER Attending Unavailable ERNIE NULL Attending Unavailable Robert Domingo Primary Care Physician [phone] Leidy Medeiros Unavailable Unavailable Benjamin HANNA Attending Unavailable Robert Domingo Referring Unavailable Allergies Allergy Classification Reported Allergen(s) Allergy Type Date of Onset Reaction(s) Facility (1 source) Lisinopril; Translations: [LISINOPRIL] Drug Allergy 09-23-2024 [facility] Repository Medications Current Medications Medication Drug Class(es) Dates Sig (Normalized) Sig (Original) [id number] 200 actuat albuterol 0.09 mg/actuat metered dose [...] aspirin 81 mg delayed release oral tablet (3 sources) Platelet Aggregation Inhibitor, Nonsteroidal Anti-inflammatory Drug Start: 06-28-2025 take 1 tablet by mouth once daily aspirin 81 mg Oral EC Tab 81 mg = 1 tab(s), Oral, Daily, Refills(s) 0 Start Date: 06/28/25 Status: Ordered Repeat number: 1 Start: 12-26-2024 Aspirin (Adult Low Dose Aspirin) [...] 18, 2025 12:00am Complies with drug therapy indomethacin 50 mg oral capsule (1 source) Nonsteroidal Anti-inflammator y Drug Start: 07-11-2025 take 1 capsule by mouth three times daily indomethacin 50 mg oral capsule 50 mg = 1 cap(s), Oral, TID, Refills(s) 0 Start Date: 07/11/25 Status: Ordered Repeat number: 1 irbesartan 300 mg oral tablet (5 sources) Angiotensin 2 Receptor Casie Start: 06-28-2025 take 1 tablet by mouth once daily irbesartan 300 mg Tab 300 mg = 1 tab(s), Oral, Daily, Refills(s) 0 Start Date: 06/28/25 Status: Ordered Repeat number: 1 Start: 12-26-2024 take 1 tablet by alexia th once daily Irbesartan 300 mg tablet Active [...] 18, 2025 12:00am Complies with drug therapy 24 hr NIFEdipine 90 mg extended release oral tablet (3 sources) Dihydropyridine Calcium Channel Casie Start: 06-28-2025 take 1 tablet by mouth once daily NIFEdipine 90 mg ER Tab 90 mg = 1 tab(s), Oral, Daily, Refills(s) 0 Start Date: 06/28/25 Status: Ordered Repeat number: 1 Start: 12-26-2024 take 1 tablet by alexia th once daily Nifedipine 60 mg tablet extended release 24hr Active 60 MG PO daily December 26, 2024 1:00am Complies with drug therapy pravastatin sodium 10 mg oral tablet (2 sources) HMG-CoA Reductase Inhibitor Start: 06-28-2025 take 1 tablet by mouth once daily pravastatin 10 mg Tab 10 mg = 1 tab(s), Oral, Daily, Refills(s) 0 Start Date: 06/28/25 Status: Ordered Repeat number: 1 Start: 04-18-2025 take 1 tablet by alexia th once daily Pravastatin 10 mg tablet Active [...] 250 mg tablet Discontinued 0 PO .COMPLEX December 26, 2024 1:00am April 18, 2025 [...] tablet Discontinued 40 MG PO Daily 10 December 26, 2024 1:00am April 18, 2025 9:58am Sod Picosulf-Mag Ox-Citric A c (2 sources) Start: 09-19-2024 End: 04-18-2025 Sod Picosulf-Mag Ox-Citric A c (Clenpiq) 10 mg-3.5 gram- 12 gram/175 mL solution Discontinued 175 ML PO .COMPLEX 350 September 19, 2024 1:00am April 18, 2025 10:00am Follow instructions given by office Start: 09-19-2024 Sod Picosulf-M ag Ox-Citric Ac (Clenpiq) 10 mg-3.5 gram- 12 gram/175 mL solution Active 175 ML PO .COMPLEX 350 September 19, 2024 12:00am Follow instructions given by office Problems Active Problems Problem Classification Problem Date Documented Da te Episodic/Chronic Anal and rectal conditions (1 source) 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 Comment on above: from crohns Coronary atherosclerosis and other heart disease (2 sources) Atherosclerotic heart disease of [place] coronary artery without angina pectoris; Translations: [Atherosclerotic heart disease of [place] coronary artery without angina pectoris] Onset: 06-19-2025 Chronic Essential hypertension (5 sources) Hypertensive disorder; Translations: [Essential (primary) hypertension] Onset: 06-19-2025 12-26-2024 Chronic Gastrointestinal hemorrhage (2 sources) Rectal hemorrhage; Translations: [Hemorrhage of anus and rectum] 04-27-2025 Episodic Gout and other crystal arthropathies (2 sources) Acute gout; Translations: [Gout, unspecified] 04-18-2025 Chronic Other and unspecified benign neoplasm (1 source) Benign lipomatous tumor; Translations: [Benign lipomatous neoplasm, unspecified] Onset: 07-11-2025 Episodic Other and unspecified benign neoplasm (1 source) Multiple lipomata 07-11-2025 Episodic Other lower respiratory disease (3 sources) Nodule of lung; Translations: [Solitary pulmonary nodule] 12-26-2024 Episodic Other lower respiratory disease (2 sources) Respiratory tract infection; Translations: [Other specified respiratory disorders] 12-26-2024 Episodic Other lower respiratory disease (1 source) Other specified respiratory disorders; Translations: [Other diseases of respiratory system, not elsewhere classified] 12-26-2024 Episodic Other lower respiratory disease (2 sources) Shortness of breath; Translations: [Shortness of breath] Onset: 06-19-2025 Episodic Other nutritional; endocrine; and metabolic disorders (1 source) Body mass index 30+ - obesity 07-11-2025 Chronic Other nutritional; endocrine; and metabolic disorders (1 source) Obesity caused by energy imbalance 06-28-2025 Chronic Regional enteritis and ulcerative colitis (2 sources) Crohn's disease; Translations: [Crohn's disease of large bowel] 01-13-2014 Chronic Substance-related disorders (1 source) Smoker 01-05-2016 Chronic Comment on above: Added secondary to d ocumentation in Social History. Past or Other Problems Problem Classification Problem Date Documented Date Episodic/Chronic Other screening for suspected conditions (not mental disorders or infectious disease) (3 sources) Encounter for screening for malignant neoplasm of colon; Translations: [Abnormal result of other cardiovascular function study] Onset: 09-23-2024 Episodic Results Test Name Value Interpretation Reference Range Facility Ambulatory Visit Summaryon 0 07-11-2025 Ambulatory Visit Summary Ambulatory Visit Summary MICHAEL CRUZ :1965 Visit Date:07/11/2025 Ambulatory Visit Instructions Your Care Team Attending Physician - Benjamin HANNA MD Primary Care Physician - Robert Domingo MD Referring Physician - Robert Domingo MD This Is Your Medications List Contact prescribing physician if questions or concerns NIFEdipine (NIFEdipine 90 mg ER Tab) aspirin (aspirin 81 mg Oral EC Tab) indomethacin (indomethacin 50 mg oral capsule) irbesartan (irbesartan 300 mg Tab) pravastatin (pravastatin 10 mg Tab) Procedures Performed R ESWL, CYSTO/R STENT REMOVAL (02/05/2017), cystoscopy with stent insertioin (01/26/2017), Anal fistulotomy, Cardiac catheterization, Cardiac catheterization, Colonoscopy, Colonoscopy, Colonoscopy, Excision of lipoma, fx left hand. Discharge Vitals Heart Rate (Peripheral) 80 Respiratory Rate 16 Blood Pressure 118/70 Height 180.3 cm Height 71 in Weight 106 kg Weight 233.69 lb BMI 32.61 Medications What How Much When Instructions Unchanged aspirin (aspirin 81 mg Oral EC Tab) 1 Tablets By Mouth Every day Contact prescribing physician if questions or concerns Unchanged indomethacin (indomethacin 50 mg oral capsule) 1 Capsules By Mouth 3 times a day Contact prescribing physician if questions or concerns Unchanged irbesartan (irbesartan 300 mg Tab) 1 Tablets By Mouth Every day Contact prescribing physician if questions or concerns Unchanged NIFEdipine (NIFEdipine 90 mg ER Tab) 1 Tablets By Mouth Every day Contact prescribing physician if questions or concerns Unchanged pravastatin (pravastatin 10 mg Tab) 1 Tablets By Mouth Every day Contact prescribing physician if questions or concerns Allergies No Known Allergies Problems Ongoing - Any problem that you are currently receiving treatment for. BMI 32.0-32.9,adult Crohn's disease of large bowel Hypertension Nodule of lung Obesity due to excess calories Smoker Historical - Any problem that you are no longer receiving treatment for. Crohn disease Patient Survey You may receive a survey via text or e-mail asking about your office visit. Please share your experience with us by completing your survey. We appreciate your feedback and thank you for choosing us for your care. Patient Portal You may access all of your results and other medical record information on our secure patient portal. If you are not signed up for this yet, please contact [employer] at [phone] to get signed up today. Language Information Language assistance services are available as needed. [facility] Office Visiton 06-19-2025 Follow-up visit [id number] Hal Cruz 1965 M Date Provider Department Center 06/19/2025 ERNIE LOYA [facility]UEL [facility] Family History Problem Relation Age of Onset Diabetes Mother Coronary artery disease Mother Other Mother Diabetes Father Family Status - Relation Status Age at Mother Father Alive Sister Alive Brother Level of Service:68547 DE OFFICE/OUTPATIENT ESTABLISHED MOD MDM 30 MIN Normal [facility] Orders Onlyon 06-12-2025 Orders Only [id number] Hal Cruz 1965 M Date Provider Department Center 06/12/2025 [id number], HISTORICAL MANUEL [facility] Family History Problem Relation Age of Onset Diabetes Mother Coronary artery disease Mother Other Mother Diabetes Father Family Status - Relation Status Age at Mother Father Alive Sister Alive Brother Normal [facility] Office Visiton 03-20-2025 Follow-up visit [id number] Hal Cruz 1965 M Date Provider Department Center 03/20/2025 Ben-ERNIE NULL [facility] Family History Problem Relation Age of Onset Diabetes Mother Coronary artery disease Mother Other Mother Diabetes Father Family Status - Relation Status Age at Mother Father Alive Sister Alive Brother Level of Service:71017 DE OFFICE/OUTPATIENT ESTABLISHED MOD MDM 30 MIN Normal [facility] Follow-Upon 11-11-2024 Follow-Up [id number] Hal Cruz 1965 M Date Provider Department Center 11/11/2024 3848-CRISTOBAL BAXTER MANU[facility] Family History Problem Relation Age of Onset Diabetes Mother Coronary artery disease Mother Other Mother Diabetes Father Family Status - Relation Status Age at Mother Father Level of Service:12646 DE OFFICE/OUTPATIENT ESTABLISHED MOD MDM 30 MIN Normal [facility] No Panel InformationOrdered By: Song Gannon on 10-21-2024 Miscellaneous Pathology Test See comment [facility] Comment on above: See report. Scanned copy available in EMR. Pathology Request for Lab Co rpon 10-21-2024 Pathology Request for Lab Shaneka Normal [facility] Comment on above: Order Comment: PATHO LOGY GI SPECIMEN Result Comment: See report. Scanned copy available in EMR. PERFORMED BY: [address] [place] [address] PATHOLOGIST BUSINESS LAW INSTRUCTOR MARCO ANTONIO ALDRICH M.D. Performed By: #### P ATH TO [facility] #### [address] 10-03-2024 - Attestation signed by Cristobal Baxter MD [...] possible PCI. Marizol Roman MD PGY-7 Interventional Label Coder [facility] Bob 10-03-2024 CHICHO PORTILLO educated pt on d/ c instructions. This [...] off of unit with all of belongings. [facility] HPon 09-23-2024 Cardiology Clinic Note Chief Complaint: New patient for abnormal stress test HPI: Michael Cruz is a 59 y.o. male who has [...] months Radiology: No image results found. Assessment/Plan: Michael Cruz is a 59 y.o. male with Abnormal stress test Essential hypertension Angina pectoris, unstable ([facility]) Diagnoses and all orders for this visit: [...] plan. Patient (more content not included)... Normal [facility] Office Visiton 09-23-2024 Follow-up visit [id number] Hal Cruz 1965 M Date Provider Department Center 09/23/2024 3848-CRISTOBAL BAXTER MANU[facility] Family History Problem Relation Age of Onset Diabetes Mother Coronary artery disease Mother Other Mother Diabetes Father Family Status - Relation Status Age at Mother Father Level of Service:65990 DE OFFICE/OUTPATIENT NEW MODERATE MDM 45 MINUTES Normal [facility] Orders Onlyon 09-23-2024 Orders Only [id number] Hal Cruz 1965 Date Provider Department Center 09/23/2024 NASIMA LUNA MANUEL [facility] Family History Problem Relation Age of Onset Diabetes Mother Coronary artery disease Mother Other Mother Diabetes Father Family Status - Relation Status Age at Mother Father Normal [facility] Vital Signs Date Time Vital Sign Value Performing Clinician Matthew hsieh 04-27-2025 13:30-0400 Body height 180.34 cm Robert Domingo MD Work Phone: [facility] 04-27-2025 13:30-0400 Body mass index (BMI) [Ratio] 32.1 kg/m2 Robert Domingo MD Work Phone: [facility] 04-27-2025 13:30-0400 Body weight 104.32 kg Robert Domingo MD Work Phone: [facility] 04-18-2025 10:01-0400 Body height 180.34 cm Robert Domingo MD Work Phone: [facility] 04-18-2025 10:01-0400 Body mass index (BMI) [Ratio] 32.1 kg/m2 Robert Domingo MD Work Phone: [facility] 04-18-2025 10:01-0400 Body temperature 98.4 [degF] Robert Domingo MD Work Phone: [facility] 04-18-2025 10:01-0400 Body weight 104.32 kg Robert Domingo MD Work Phone: [facility] 04-18-2025 10:01-0400 Diastolic blood pressure 71 mm[Hg] Robert Domingo MD Work Phone: [facility] 04-18-2025 10:01-0400 Heart rate 77 /min Robert Domingo MD Work Phone: [facility] 04-18-2025 10:01-0400 Respiratory rate 16 /min Robert Domingo MD Work Phone: [facility] 04-18-2025 10:01-0400 SaO2% (BldA) [Mass fraction] 97 % Robert Domingo MD Work Phone: [facility] 04-18-2025 10:01-0400 Systolic blood pressure 111 mm[Hg] Robert Domingo MD Work Phone: [facility] 12-26-2024 15:20-0500 Body height 180.34 cm Robert Domingo MD Work Phone: [facility] 12-26-2024 15:20-0500 Body mass index (BMI) [Ratio] 33.2 kg/m2 Robert Domingo MD Work Phone: [facility] 12-26-2024 15:20-0500 Body temperature 98.6 [degF] Robert Domingo MD Work Phone: [facility] 12-26-2024 15:20-0500 Body weight 107.95 kg Robert Domingo MD Work Phone: [facility] 12-26-2024 15:20-0500 Diastolic blood pressure 76 mm[Hg] Robert Domingo MD Work Phone: [facility] 12-26-2024 15:20-0500 Heart rate 80 /min Robert Domingo MD Work Phone: [facility] 12-26-2024 15:20-0500 Respiratory rate 16 /min Robert Domingo MD Work Phone: [facility] 12-26-2024 15:20-0500 SaO2% (BldA) [Mass fraction] 96 % Robert Domingo MD Work Phone: [facility] 12-26-2024 15:20-0500 Systolic blood pressure 132 mm[Hg] Robert Domingo MD Work Phone: [facility] 10-21-2024 09:50-0500 Diastolic blood pressure 90 mm[Hg] Robert Domingo MD Work Phone: [facility] 10-21-2024 09:50-0500 Heart rate 65 /min Robert Domingo MD Work Phone: [facility] 10-21-2024 09:50-0500 Respiratory rate 16 /min Robert Domingo MD Work Phone: [facility] 10-21-2024 09:50-0500 SaO2% (BldA) [Mass fraction] 96 % Robert Domingo MD Work Phone: [facility] 10-21-2024 09:50-0500 Systolic blood pressure 159 mm[Hg] Robert Domingo MD Work Phone: [facility] 10-21-2024 08:25-0500 Body height 180.34 cm Robert Domingo MD Work Phone: [facility] 10-21-2024 08:25-0500 Body weight 104 kg Robert Domingo MD Work Phone: [facility] Encounters Encounter Date Encounter Type Care Provider Facility Start: 07-11-2025 End: 07-11-2025 ambulatory Benjamin HANNA Facility:[facility] Start: 07-11-2025 End: 07-11-2025 Patient encounter procedure Benjamin HANNA [facility] Start: 06-19-2025 End: 06-19-2025 ambulatory [facility] Start: 04-27-2025 End: 04-27-2025 ambulatory Robert Domingo MD Work Phone: [facility] Work Phone: Start: 04-27-2025 End: 04-27-2025 Patient encounter procedure Song Gannon MD -[facility] Work Phone: Start: 04-18-2025 End: 04-18-2025 Patient encounter procedure Mirtha MONTILLA -[facility] Work Phone: Start: 03-20-2025 End: 03-20-2025 ambulatory [facility] Start: 12-26-2024 End: 12-26-2024 ambulatory Robert Domingo MD Work Phone: [facility] Work Phone: Start: 12-26-2024 End: 12-26-2024 Patient encounter procedure Robert Domingo MD Work Phone: [facility] Work Phone: Start: 11-11-2024 End: 11-11-2024 ambulatory [facility] Start: 10-21-2024 Non-patient / Non-visit Raji Domingo MD Work Phone: [facility] Work Phone: Start: 10-21-2024 End: 10-21-2024 Admission to same day surgery center Robert Domingo MD Work Phone: [facility] Work Phone: Start: 10-21-2024 End: 10-21-2024 ambulatory Robert Domingo Facility:[facility] Start: 10-03-2024 End: 10-03-2024 ambulatory [facility] Start: 09-23-2024 End: 09-23-2024 ambulatory [facility] Procedures Date Procedure Procedure Detail Performing Clinician Start: 10-21-2024 Colonoscopy Robert reza MD Work Phone: Start: 02-05-2017 R ESWL, CYSTO/R STEN T REMOVAL Benjamin NILL Start: 01-26-2017 cystoscopy with sten t insertioin Benjamin NILL Cardiac catheterization Jose ael NILL Cardiac catheterization Jose ael NILL Colonoscopy Benjamin NILL Colonoscopy Benjamin NILL Excision of lipoma Benjamin N ILL fx left hand Benjamin NILL Incision of anal fistula Joe hael NILL Plan of Treatment Date Care Activity Detail Author Start: 10-21-2024 [facility] Patient Education Know your Meds [facility] Work Phone: Immunizations Immunization Date Immunization Notes Care Provider Diamante paige 07-24-2021 SARS-CoV-2 (COVID-19 ) Ad26 vaccine, recombinant Benjamin NILL [facility] [place] Comment on above: Result Comment: 2024: [id number] 01-05-2016 tetanus toxoid, redu regino diphtheria toxoid, and acellular pertussis vaccine, adsorbed Benjamin NILL [facility] Payers Date Payer Category Payer Self-pay 2023 Unknown [id number] 1965 Unknown [id number] Unknown [id number] Social History Date Type Detail Facility Start: 12-26-2024 End: 07-11-2025 Tobacco smoking status NHIS Ex-smoker (finding) [facility] Comment on above: 5-10 daily Start: 01-20-2019 End: 12-26-2024 Sex Male (finding) [facility] Start: 1965 Sex Assigned At Male F [facility] Tobacco smoking status Smokeless tobacco user within last 30 days [facility] [place] Comment on above: 5-10 daily Sexual Orientation [facility] [place] Sex Assigned At Male [facility] Goals Date Patient Goal Desired Activity /State Clinical Notes 09-23-2024 to 07-11-2025 Note Date & Type Note Facility 07-11-2025 Note General Surgery Offi ce/Clinic Note Chief Complaint consultation for arm mass HPI Staff 60 year old male presents on consultation from Dr. Domingo for multiple nodules/masses right arm. Reports these have all been present for many years. Verbalized some have increased in size. Denies pain or discomfort but feels the larger masses may be contributing to numbness be has been experiencing in his fingers. No imaging completed. History of Present Illness 60 yo male with h/o htn, hyperlipidemia, Crohn's disease, referred for subcutaneous masses right upper arm; long h/o multiple subcutaneous lipomas, several removed in remote past; no symptoms; recently has had some jerking movements of right arm and numbness in fingers, intermittent; worried that it is caused by lipomas; slight increase in size in some lipomas of right upper arm, nontender, no skin changes; no tobacco use; on baby asa and Indomethacin. Review of Systems PHQ Score Initial Depression Screen Score: 0 SCORE ROS - Provider Constitutional: no fever, no sweats, no weight loss. Eyes: no glasses, no blurred vision, no visual loss. ENMT: no dentures, no hoarseness, no swallowing difficulties, no hearing loss, no ear infection(s), no nose bleeds. Cardiovascular: normal blood pressure, no chest pain, regular heartbeat, no heart murmur. Respiratory: no shortness of breath, no cough, no asthma, no wheezing. Gastrointestinal: no nausea, no vomiting, no diarrhea, no constipation, no blood in stool, no change in bowel habits, no abdominal pain, no hepatitis. Genitourinary: no kidney stones, no urine infection, no dysuria. Musculoskeletal: no pain, no weakness. Skin: no changing moles, no rash, no skin lumps. Neurologic: no seizures, no epilepsy, no headache. Psychiatric: no emotional or psychiatric problem. Heme/Lymph: no bleeding problems, no anemia, no blood clots, no transfusions. Allergy/Immunologic: no swollen lymph nodes/glands, no IV drug abuse. Other: Additional ROS info: Except as noted in the above Review of Systems and in the History of Present Illness, all other systems have been reviewed and are negative or noncontributory. Physical Exam Vitals & Measurements HR: 80(Peripheral) RR: 16 BP: 118/70 HT: 71 in HT: 180.3 cm WT: 106 kg WT: 233.69 lb BMI: 32.61 Musculoskeletal: normal gait, digits and nails without infection, nodes, cyanosis, clubbing. Skin: no rashes, no lesions, no ulcers, multiple subcutaneous lipomas on right arm, 1 cm up to 2.5 cm, no overlying skin changes, nontender. Psychiatric/Neuro: oriented to time, place, person, judgement normal, affect appropriate for age, insight intact, no focal deficits. Tests: review of old records completed , Assessment/Plan 1. Multiple lipomas (D17.9: Benign lipomatous neoplasm, unspecified) all superficial subcutaneous nodules on right upper extremity, unlikely to be causing symptoms; recommend work up for other etiologies; call with problems/questions. Follow-up No qualifying data available Problem List/Past Medical History Ongoing BMI 32.0-32.9,adult Crohn's disease of large bowel Hypertension Multiple lipomas Nodule of lung Obesity due to excess calories Smoker Historical Crohn disease Procedure/Surgical History R ESWL, CYSTO/R STENT REMOVAL (02/05/2017), cystoscopy with stent insertioin (01/26/2017), Anal fistulotomy, Cardiac catheterization, Cardiac catheterization, Colonoscopy, Colonoscopy, Colonoscopy, Excision of lipoma, fx left hand. Medications aspirin 81 mg Oral EC Tab, 81 mg= 1 tab(s), Oral, Daily indomethacin 50 mg oral capsule, 50 mg= 1 cap(s), Oral, TID irbesartan 300 mg Tab, 300 mg= 1 tab(s), Oral, Daily NIFEdipine 90 mg ER Tab, 90 mg= 1 tab(s), Oral, Daily pravastatin 10 mg Tab, 10 mg= 1 tab(s), Oral, Daily Allergies No Known Allergies Social History Alcohol - Low Risk, 02/03/2017 Never., 07/09/2025 Substance Abuse - Denies Substance Abuse, 02/03/2017 Never., 07/09/2025 Tobacco - Low Risk, 02/03/2017 Former smoker, quit more than 30 days ago Tobacco Use:. Smokeless tobacco user within last 30 days Smokeless Tobacco Use:. Cigars, Oral, Started age 30.0 Years. Yes, 07/11/2025 Family History Diabetes mellitus type 2: Mother and Father. Heart disease: Mother. Primary malignant neoplasm of skin: Father. Immunizations Vaccine Date Status Comments SARS-CoV-2 (COVID-19) Ad26 vaccine 07/24/2021 Recorded 2025-06-28: TPV50 diphtheria/pertussis, acel/tetanus adult 01/05/2016 Given [facility] Comment on above: Result Comment: Elec tronically Signed By: CYNDI HANKS, Benjamin Bruno.atif\Date and Time Signed: 07/11/25 15:59 EDT 06-19-2025 Note [place] [facility] - [facility] Subjective Michael Cruz is a 60 y.o. year old adult patient being seen for a follow up appointment with Echo and labs. Patient states he feels alright. Patient states he feels run down. Patient states he was recently diagnosed with Lupus. Patient states he feels like he possible has gout in his wrist and finger. Patient states his bp have been in range, headaches have become less. Patient states he does have numbness in bilateral toes and feet, SOB, VALDOVINOS, dizziness/lightheaded, fatigue, .Patient denies chest, Patient Active Problem List Diagnosis Current smoker Abnormal stress test Family History Problem Relation Name Age of Onset Diabetes Mother Coronary artery disease Mother Other (CABG) Mother Diabetes Father Social History Tobacco Use Smoking status: Former Types: Cigars Passive exposure: Past Smokeless tobacco: Never Tobacco comments: Nicotine pouches Substance Use Topics Alcohol use: Not Currently Drug use: Never RNADY Michael is seen in follow-up. He is a 60-year-old man who was previously evaluated due to abnormal ECG and abnormal stress test that showed fixed inferior defect. Cardiac catheterization showed nonobstructive coronary artery disease with around 50% stenosis in the LAD. He was recommended medical management. Additional medical history includes hypertension and Crohn's. At last visit of 03/20/2025 I started him on statin therapy due to his nonobstructive coronary artery disease. In addition he had been having erectile dysfunction and I reduced carvedilol to 3.125 mg twice daily and added hydrochlorothiazide 25 mg once daily. I also checked an echocardiogram due to his symptoms of shortness of breath. His echocardiogram 06/09/2025 showed normal ventricular systolic function with normal right-sided pressures and mild mitral and tricuspid regurgitation with mildly dilated right ventricle. Eventually his carvedilol was stopped by Dr. Domingo. He also increased nifedipine dosage. He also asked him to take hydrochlorothiazide every other day due to elevated creatinine. Today he reports that he has been free from chest pain. He has shortness of breath on exertion NYHA class II symptoms and lower extremity edema. He feels occasional palpitations. He has no syncope, his exercise tolerance is acceptable. He has been having significant arthritic pain in his left wrist. In addition he recently got tested and possibly diagnosed with lupus. He will get further testing with Dr. Domingo. Review of Systems Constitutional: Positive for malaise/fatigue. Cardiovascular: Positive for dyspnea on exertion and irregular heartbeat. Respiratory: Positive for shortness of breath. Musculoskeletal: Positive for joint pain. Neurological: Positive for dizziness and light-headedness. Objective Visit Vitals BP 118/76 (BP Location: Right arm, Patient Position: Sitting) Pulse 90 Ht 1.803 m (5' 11 ) Wt 101 kg (223 lb) SpO2 96% BMI 31.10 kg/m??? Smoking Status Former BSA 2.25 m??? Physical Exam Constitutional: Appearance: He is [...] mouth in the morning., Disp: , Rfl: C/sourcherry/celery/grape seed (TART ALCANTAR ORAL), Take 1,000 mg by mouth in the morning., Disp: [...] or split., Disp: 90 tablet, Rfl: 3 pravastatin (Pravachol (more content not included)... [facility] 04-18-2025 Evaluation note Diagnosis Onset Date Resolution Gout flare acute April 18 9:44am Rectal bleeding acute April 1:25pm [facility] Work Phone: 1(418) 720-998705-19-2025 [place] [facility] - [facility] Subjective Michael Cruz is a 59 y.o. year old adult [...] use: Not Currently Drug use: Never HPI Michael is seen in follow-up. This is the [...] Rate 10/03/2024 54 Atrial Rate 10/03/2024 54 DE Interval 10/03/2024 120 QRS DURATION 10/03/2024 144 QT Interval 10/03/2024 492 QTC CALCULATION(BAZETT) 10/03/2024 466 P [place] 10/03/2024 40 R-[place] 10/03/2024 26 T Wave [place] 10/03/2024 (more content not included)...[facility]01-10-2025 NoteCardiology Clinic Note HPI: Michael Cruz is a 59 y.o. adult who has [...] Value Ventricular Rate 54 Atrial Rate 54 DE Interval 120 QRS DURATION 144 QT Interval 492 QTC CALCULATION(BAZETT) 466 P [place] 40 R-[place] 26 T Wave [place] -8 Impression Sinus bradycardia Right bundle branch [...] Findings: HEMODYNAMICS: AO: 153/90 (more content not included)...[facility] 10-03-2024 NotePatient: Michael Cruz Procedure Information Date/Time: 10/03/24929 Procedure: Coronary angiography (Left) - PC APPROVED Location: [facility] / [facility] (Cath) Providers: Cristobal Baxter MD Clinical information reviewed: Allergies Meds Physical Exam Airway Mallampati: II TM distance: <3 FB Cardiovascular Rhythm: regular Rate: normal Dental Pulmonary Abdominal Anesthesia Plan ASA 3 other (Conscious ) Anesthetic plan and risks discussed with patient. Use of blood products discussed with patient who consented to blood products. Plan discussed with attending. [facility] Chief Complaint: New patient for abnormal stress test HPI: Michael Cruz is a 59 y.o. male who has [...] months Radiology: No image results found. Assessment/Plan: Michael Cruz is a 59 y.o. male with Abnormal stress test Essential hypertension Angina pectoris, unstable ([facility]) Diagnoses and all orders for this visit: [...] with current plan. Patient (more content not included)...[facility] Evaluation + Plan note No data available for this section [facility] [place] Evaluation note* Diagnosis Onset Date Resolution Status Admit Date Respiratory infection acute Dec ruary 2024 3:13pm [facility] Work Phone: Hospital Discharge instructions No data available for this section [facility] [place] Progress note No data available for this section [facility] [place] Reason for referral (narrative)No reason for referral information available[facility] Work Phone: Summary Purpose Family History No Family History Records Found Relationship Condition Age at Onset Recorded Date/T nell father Hypertension Unknown Diabetes mellitus Unknown family member Unknown mother Hypertension Unknown Advance Directives No Advanced Directives Records Found Advance Directive Response Recorded Date/ Time Advance Directives No September 12:11pm Advance Directive Response Recorded Date/ Time Advance Directives No September 1:11pm Chief Complaint and Reason for Visit Chief Complaint Admit Date hx of chron's disease October 21 7:59am hx of chron's disease October 21 9:05am chest congestion, cough December 26, 025 3:13pm Reason for Visit Admit Date [...] ized section and content) DATE CREATED AUTHOR 11/13/2024 [facility] DATE CREATED AUTHOR AUTHOR'S ORGANIZ ATION 06/19/2025 [facility] DATE CREATED AUTHOR AUTHOR'S ORGANIZ ATION 07/13/2025 [facility] Care Teams (unrecognized sec tion and content) [...] be documented in a n alternate section No data available for this section FOR RECORDS PERTAINING TO PATIENTS WHO [...] BE BASED ON THE PRIMARY CLINICAL RECORDS. [employer] provides no warranty or guarantee of the accuracy or completeness of information in this document.
[2025-07-15 08:12] LABS: Hematocrit 35.7 % (42.0-54.0); Hemoglobin 12.3 g/dL (14.0-18.0); Immature Granulocytes Abs Auto 0.03 10^3/uL (0.00-0.03); Immature Granulocytes Pct Auto 0.3 % (0.0-0.5); Lymphocytes Absolute Auto 2.0 10^3/uL (1.2-3.8); Mean Corpuscular HGB Conc 34.5 g/dL (29.9-35.2); Mean Corpuscular Hemoglobin 29.9 pg (25.9-34.0); Mean Corpuscular Volume 86.9 fL (80.0-94.0); Platelet Count 274 10^3/uL (150-450); Red Blood Count 4.11 10^6/uL (4.70-6.10); White Blood Count 8.9 10^3/uL (4.0-11.0)
[2025-07-15 10:45] LABS: Alanine Aminotransferase 28 U/L (16-63); Albumin Globulin Ratio 0.8; Albumin Level 3.3 g/dL (3.4-5.0); Alkaline Phosphatase 59 U/L (46-116); Anion Gap 14.5; Aspartate Amino Transferase 11 U/L (15-37); Blood Urea Nitrogen 23.0 mg/dL (7.0-18.0); Calcium 8.6 mg/dL (8.5-10.1); Carbon Dioxide 24.8 mmol/L (21.0-32.0); Chloride 109 mmol/L (98-107); Cholesterol 151 mg/dL (<=200); Estimated GFR (African America >60 (>=60 mL/min/1.73m^2); Estimated GFR (Non-African Ame 60 (>=60 mL/min/1.73m^2); Free T3 2.92 pg/mL (2.18-3.98); Globulin 4.0 g/dL; Glucose 122 mg/dL (74-106); HDL Cholesterol 42 mg/dL (40-60); NT Pro B Type Natriuretic Pept 42.0 pg/mL (<=900.0); Potassium 4.3 mmol/L (3.5-5.1); Sodium 144 mmol/L (136-145); Thyroid Stimulating Hormone 0.582 uIU/mL (0.358-3.740); Total Protein 7.3 g/dL (6.4-8.2); Triglycerides 117 mg/dL (<=150); Uric Acid 7.4 mg/dL (3.5-7.2); VLDL CHOLESTEROL 23.4 mg/dL
[2025-07-17 14:13] LABS: Antinuclear Antibodies, IFA Negative (.)
== END 2025-07-15 07:52 | disposition home or self-care (01) ==
PROVIDERS: PCP Family Medicine; Visit Provider Family Medicine
DX: R06.00 Dyspnea, unspecified (principal); R53.83 Other fatigue; R06.83 Snoring; I50.30 Unspecified diastolic (congestive) heart failure; I11.0 Hypertensive heart disease with heart failure
CPT/HCPCS: 36415; 80053; 80061; 83036; 83525; 83880; 84436; 84443; 84481; 84550; 85025; 85652; 86038; 86060; 86140; 86431